=== PATIENT | male | born 1940 | race Caucasian/White ===

== ENCOUNTER 2020-05-02 20:54 | Inpatient (IN) | payer MEDICARE, SELFPAY ==
--- NOTE | ~2020-05-02 | XR_ITS ---
XR chest 2V 05/02/2020 21:40 Indication: Shortness of breath and cough. Pneumonia. COPD. Procedure: AP and lateral views of the chest Comparison: 05/28/2015 Findings: cardiomegaly. Bilateral interstitial infiltrates of the mid and lower lung zones with perib ronchial thickening. No significant pleural effusion or pneumothorax. No acute osseous abnormality. Impression: 1: Bilateral interstitial infiltrates of the mid and lower lung zones, most likely edema. Pneumonia l ess favored. 2: Cardiomegaly. Reviewed, dictated and finalized at location A. D ENGINEER Impression: 1: Bilateral interstitial infiltrates of the mid and lower lung zones, most lik josue edema. Pneumonia less favored. 2: Cardiomegaly.
--- NOTE | 2020-05-02 20:56 | ECG_ITS ---
Measurements Intervals [place] Rate: 80 P: 42 CO: 178 QRS: -52 QRSD: 193 T: 137 QT: 448 QTc: 517 Interpretive Statements SINUS RHYTHM LEFT AXIS DEVIATION LEFT BUNDLE BRANCH BLOCK ABNORMAL ECG Electronically Signed On 05-03-2020 7:04:47 COLLETER by John Zurita D.O.
[2020-05-02 21:07] VITALS: BP 137/82; PULSE 84; RESP 24; TEMP 35.8; O2SAT 95
[2020-05-02 21:38] LABS: Basophils Absolute Auto 0.1 K/mm3 (0.0-0.1); Basophils Percent Auto 0.3 % (0.2-1.2); Eosinophils Absolute Auto 0.1 K/mm3 (0-0.3); Eosinophils Percent Auto 0.5 % (0-4.4); Hematocrit 42.9 % (42.0-52.0); Hemoglobin 14.4 g/dL (14.0-18.0); Immature Granulocyte Absolute 0.07 K/mm3 (0.00-0.031); Immature Granulocyte Percent A 0.5 % (0-0.5); Lymphocytes Absolute Auto 1.02 K/mm3 (0.9-3.2); Lymphocytes Percent Auto 6.7 % (18.3-44.2); Mean Corpuscular HGB Conc 33.6 g/dl (32-36); Mean Corpuscular Hemoglobin 30.9 pg (26-34); Mean Corpuscular Volume 92.1 fl (80-100); Monocytes Absolute Auto 1.2 K/mm3 (0.1-0.6); Monocytes Percent Auto 7.5 % (2.6-8.5); Neutrophils Absolute Auto 12.9 K/mm3 (1.3-6.7); Neutrophils Percent Auto 84.5 % (45.5-73.1); Platelet Count Result 277 k/mm3 (150-375); Red Blood Count 4.66 M/mm3 (4.6-6.20); Red Cell Distribution Width 13.5 % (11.5-14.5); White Blood Count 15.3 K/mm3 (4.5-10.0)
[2020-05-02 21:49] LABS: Anion Gap 6 mmol/L (8-16); Blood Urea Nitrogen 11 mg/dL (9-20); Calcium 8.8 mg/dL (8.4-10.2); Carbon Dioxide 27 mmol/L (22-30); Chloride 101 mmol/L (98-107); Estimated CRCL calculation 69 ml/min; Estimated Glomerular Filt Rate > 60; Glucose 152 mg/dL (75-110); Sodium 134 mmol/L (137-145)
[2020-05-02 21:50] LABS: Potassium 3.8 mmol/L (3.4-5.0)
--- NOTE | 2020-05-02 21:53 | ED.GENADULT ---
HPI - General Adult General Chief complaint: Shortness of Breath/Dyspnea Stated complaint: sob since yesterday Time Seen by Provider: 05/02/20 21:21 History of Present Illness HPI narrative: Patient is a 79-year-old gentleman who presents the emergency department with chief complaint of shortness of breath. Patient reports that he was out golfing and noticed that he was getting more winded as he was bruising the golf course. Patient states that he smokes cigarettes and has noticed that he has been wheezing more and coughing more. The patient reports he has had a productive cough of sputum states that he does have some occasional wheezing. He reports that he has not been officially diagnosed with COPD although it is noted in the patient's chart. The patient denies peripheral edema does report that he has history of heart disease. Related Data Home Medications Medication Instructions Recorded Confirmed aspirin 325 mg tablet,delayed 325 mg PO DAILY 03/07/19 03/19/20 release vardenafil 20 mg tablet 20 mg PO DAILY 03/07/19 03/19/20 Allergies Allergy/AdvReac Type Severity Reaction Status Date / Time Sulfa (Sulfonamide Allergy Unknown Rash Verified 05/02/20 21:06 Antibiotics) Review of Systems Review of Systems: Narrative: A 10 system review of systems was completed on the patient and is negative except for what is stated in the HPI. Nursing and ancillary documentation was reviewed. [facility] Surgical History Surgical History History of right-sided carotid endarterectomy Social History Social History Smoking packs per day: 3 Smoking cigarettes per day: 60.0 Years smoked: 30 Smoking pack-years: 90.00 Smoking status: Current every day smoker Tobacco type: cigarettes Second hand tobacco smoke exposure: No Alcohol intake: never Substance use: never Substance use type: does not use Gender identity (if verbalized by the patient): Male Sexual Orientation (if Verbalized by the Patient): Straight or Heterosexual Exam Narrative: Exam Narrative: GENERAL: Well-appearing, well-nourished, and in no acute distress. HEAD: Normocephalic, atraumatic. EYES: PERRLA and EOMI. ENT: Nares clear, no rhinorrhea or epistaxis. Mucous membranes moist. NECK: Supple. CHEST: Scattered rhonchi present bilaterally with occasional wheeze no respiratory distress. HEART: Regular rate and rhythm. No murmur heard. Normal peripheral pulses. ABDOMEN: Soft, nontender, nondistended, normal active bowel sounds. EXTREMITIES: Normal range of motion. No edema. SKIN: Warm, dry, no rash. NEURO: No focal deficits. Alert and oriented x3. PSYCH: Normal mood and affect. Course Vital Signs Vital signs: Vital Signs Temperature 35.8 C L 05/02/20 21:07 Pulse Rate 84 05/02/20 21:07 Respiratory Rate 24 H 05/02/20 21:07 Blood Pressure 137/82 05/02/20 21:07 Pulse Oximetry 95 05/02/20 21:07 Temperature 35.8 C L 05/02/20 21:07 Pulse Rate 79 05/02/20 23:00 Respiratory Rate 16 05/02/20 23:00 Blood Pressure 130/79 05/02/20 23:00 Pulse Oximetry 92 05/02/20 23:00 Medical Decision Making Vital Signs Vital Signs: Vital Signs Temperature 35.8 C L 05/02/20 21:07 Pulse Rate 84 05/02/20 21:07 Respiratory Rate 24 H 05/02/20 21:07 Blood Pressure 137/82 05/02/20 21:07 Pulse Oximetry 95 05/02/20 21:07 Temperature 35.8 C L 05/02/20 21:07 Pulse Rate 79 05/02/20 23:00 Respiratory Rate 16 05/02/20 23:00 Blood Pressure 130/79 05/02/20 23:00 Pulse Oximetry 92 05/02/20 23:00 Lab Data Result diagrams: 05/02/20 21:27 05/02/20 21:27 Labs: Lab Results 05/02/20 05/02/20 05/02/20 Range/Units 21:27 21:27 21:27 WBC 15.3 H (4.5-10.0) K/mm3 RBC 4.66 (4.6-6.20) M/mm3 Hgb 14.4 (14.0-18.0) g/dL Hct 42.9 (42.0
[2020-05-02 22:12] VITALS: BP 117/67; PULSE 77; RESP 17; O2SAT 93
[2020-05-02] MEDS: methylPREDNISolone SOD SUCC 125 MG VIAL IV PUSH (22:12)
[2020-05-02 22:30] LABS: Alanine Aminotransferase 18 U/L (4-50); Albumin Level 3.9 g/dL (3.5-5.1); Alkaline Phosphatase 56 U/L (38-126); Aspartate Amino Transferase 35 U/L (17-59); Bilirubin,Total 0.9 mg/dL (0.2-1.3)
[2020-05-02 22:49] LABS: NT Pro B Type Natriuretic Pept 3250 PG/ML (5-100); Troponin I 0.741 ng/mL (0.000-0.034)
[2020-05-02 23:00] VITALS: BP 130/79; PULSE 79; RESP 16; O2SAT 92
[2020-05-02] MEDS: ASPIRIN 81 MG CHEWABLE TABLET 324 MG PO (23:13)
--- NOTE | 2020-05-02 23:55 | PM.IMHP ---
H&P: HPI History of Present Illness Date/Time: 05/02/20 23:55 Chief Complaint: shortness of breath Narrative: This is a 79 year old male who is known to chronically smoke 3 ppd of cigarettes and denies any known chronic pulmonary disease presented to the hospital [facility] with a complaint of worsening shortness of breath with minimal exertion over the past few days. His symptoms began after he was out golfing and noticed that he was very winded while playing. He is known to have a chronic poorly productive cough with wheezing. Tonight he denies any recent chest pain, fevers, chills, sore throat, nausea, vomiting, abdominal pain, dysuria hematuria, diarrhea, lower extremity swelling, syncope, or palpitations. He denies any known sick contacts. The patient was evaluated in the ER [facility] and found to incidentally have an elevated troponin of 0.741 and EKG showed a LBBB w/ ST segment depression in precordial leads V5 and V6. The patient reports having had a heart attack years ago but denies having any stents. Cardiology has been consulted by ER provider. We have been asked to admit the patient to the hospital for further care. Review of Systems Review of Systems: All systems reviewed & are unremarkable except as noted in HPI and below PMFSH Past Medical History Medical History CAD (coronary artery disease) COPD (chronic obstructive pulmonary disease) Essential (primary) hypertension Gout, unspecified Surgical History Surgical History History of right-sided carotid endarterectomy Family History Family History Father Lung cancer Social History Social History Smoking packs per day: 3 Smoking cigarettes per day: 60.0 Years smoked: 21 Smoking pack-years: 63.00 Smoking status: Current every day smoker Tobacco type: cigarettes Second hand tobacco smoke exposure: No Alcohol intake: former Substance use: former Substance use type: does not use Gender identity (if verbalized by the patient): Male Sexual Orientation (if Verbalized by the Patient): Straight or Heterosexual Spiritual care concerns: No Meds Home Medications and Allergies Home Medications Medication Instructions Recorded Confirmed Type aspirin 325 mg tablet,delayed 325 mg PO DAILY 03/07/19 05/03/20 History release vardenafil 20 mg tablet 20 mg PO DAILY 03/07/19 05/03/20 History chlorthalidone 25 mg tablet 25 mg PO DAILY #30 tablet 06/09/19 05/03/20 Rx allopurinol 300 mg tablet 300 mg PO DAILY #90 tablet 11/06/19 05/03/20 Rx hydrocodone 7.5 mg-acetaminophen 1 tablet PO Q8H PRN #45 tablet 02/29/20 05/03/20 Rx 325 mg tablet metformin 500 mg tablet,extended 500 mg PO QPM #90 tablet 03/18/20 05/03/20 Rx release 24 hr fosinopril 40 mg PO BID 05/03/20 05/03/20 History nebivolol [Bystolic] 10 mg PO DAILY 05/03/20 05/03/20 History rosuvastatin 20 mg PO DAILY 05/03/20 05/03/20 History valacyclovir 500 mg PO DAILY 05/03/20 05/03/20 History Allergies Allergy/AdvReac Type Severity Reaction Status Date / Time Sulfa (Sulfonamide Allergy Unknown Rash Verified 05/02/20 21:06 Antibiotics) Vital Signs Vital Signs - 24 hr 05/02/20 21:07 05/02/20 22:12 05/02/20 23:00 Temperature 35.8 C L Pulse Rate 84 77 79 Respiratory Rate 24 H 17 16 Blood Pressure 137/82 117/67 130/79 Pulse Oximetry 95 93 92 Exam Const: General: cooperative, alert, awake and ill appearing Nutritional Appearance: overweight Orientation/consciousness: patient oriented x3 HENMT: Head: normal to inspection General nose exam: Normal external nose present Face and sinus: normal facial exam Mouth: Yes Normal oral and palatal mucosa present and Yes oropharynx normal Eyes: Pupils: Equal, round and reactive pupils present EOM: EOMs in
[2020-05-03] VITALS (37 sets, daily range): BP systolic 105–141; BP diastolic 60–89; PULSE 75–132; RESP 12–92; TEMP 35.6–36.8; O2SAT 89–98; BMI 28.5
--- NOTE | 2020-05-03 | ECHO_ITS ---
Patient Info Name: Mahendra Fletcher Age: 79 years : 1940 Gender: Male Ht: 71 in Wt: 202 lbs BSA: 2.16 m2 HR: 85 bpm BP: 131 / 75 mmHg Technical Quality: Fair Exam Date: 05/03/2020 10:06 AM Exam Location: [facility] Pulmonary Exam Room: 205 Patient Status: Inpatient Admit Date: 05/03/2020 Staff Ordering Physician: Osman Ruiz MD [employer] Teacher Librarian: Joanna Watts RCS Attending Provider: Fili Costa PA-C Exam Type: CA echo doppler color flow Study Info Indications - NSTEMI Complete two-dimensional, color flow and Doppler transthoracic echocardiogram is performed. Summary 1. Complete two-dimensional, color flow and Doppler transthoracic echocardiogram is performed. 2. Left ventricular systolic function is normal, estimated at 35-40%. 3. There is mildly increased left ventricular wall thickness. 4. There is mild mitral valve regurgitation. 5. There is mild tricuspid valve regurgitation. 6. Moderate pulmonary hypertension, estimated pulmonary arterial systolic pressure is 58 mmHg. Left Ventricle Left ventricular chamber dimension is normal. Left ventricular systolic function is normal, estimated at 35-40%. There is mildly increased left ventricular wall thickness. Left ventricular septal wall motion is normal. The left ventricular diastolic function is normal. Right Ventricle Right ventricular chamber dimension is normal. Right ventricular systolic function is normal. Left Atria Left atrial chamber dimension is normal. Right Atria Right atrial chamber dimension is normal. Aortic Valve The aortic valve is trileaflet. There is no aortic valve sclerosis. There is no aortic valve stenosis. There is no aortic valve regurgitation. Pulmonic Valve The pulmonic valve is normal. There is no pulmonic valve stenosis. There is no pulmonic regurgitation. Mitral Valve The mitral valve has normal leaflets. There is no mitral valve stenosis. There is mild mitral valve regurgitation. Tricuspid Valve The tricuspid valve leaflets are normal. There is no significant tricuspid valve stenosis. There is mild tricuspid valve regurgitation. Moderate pulmonary hypertension, estimated pulmonary arterial systolic pressure is 58 mmHg. Pericardium/Pleural The pericardium appears normal. There is no pericardial effusion. Inferior Vena Cava Dilated inferior vena cava with >50% collapse upon inspiration consistent with elevated right atrial pressure, 10 mmHg. Aorta The aortic root size at the sinus of Valsalva is normal. The prox ascending aorta size is normal. Left Ventricular Outflow Tract Name Value Normal LVOT 2D LVOT Diameter 2.2 cm LVOT Doppler LVOT Peak Gradient 4 mmHg LVOT Mean Gradient 2 mmHg LVOT VTI 19 cm LVOT VTI/AV VTI Ratio 0.9 LVOT Stroke Volume 73 ml LVOT CO 15.9 l/min LVOT CI 7.4 l/min/m2 Pulmonic Valve
[2020-05-03] MEDS: HEPARIN SODIUM 5,000 UNITS/ML VIAL 4000 UNITS IV PUSH ×2 (00:19→08:32)
--- NOTE | 2020-05-03 00:57 | ADMGEN ---
This patient, Mahendra Fletcher, was admitted to IMU Room 205-02. Patient/family oriented to hospital policies and general routines including ID bracelet, bed and alarms, visiting hours, pain management, procedures, bathroom and other care routines, personal items, smoking policy, room service/diet, and visiting hours. Information on how to activate the Rapid Response Team has been discussed. Patient/Family are encouraged to report perceived risks to care and to ask questions if they do not understand what they are told or what they should do.
[2020-05-03 01:20] LABS: Alveolar/Arterial O2 Gradient 141.6 mmHg; Base Excess ABG -0.2 mEq/l (+/-2.0); Device NASAL CANNULA; Fractional Inspired Oxygen 36 %; HCO3 ABG 24.6 mEq/l (22.0-26.0); Modified Allen's Test Pass; Oxygen Content ABG 18.9 %vol (16.0-22.0); Oxygen Saturation ABG 93.5 % (95.0-100.0); PCO2 ABG 40.9 mmHg (35.0-45.0); PO2 ABG 67.6 mmHg (80.0-100.0); PO2 FiO2 Ratio Arterial Blood 1.88 %; Site Drawn RIGHT RADIAL; Total Hemoglobin 14.8 g/dL (12.0-18.0); pH ABG 7.397 (7.350-7.450)
[2020-05-03 01:49] LABS: Basophils Percent Auto 0.2 % (0.2-1.2); Eosinophils Percent Auto 0.2 % (0-4.4); Hematocrit 43.2 % (42.0-52.0); Hemoglobin 14.5 g/dL (14.0-18.0); Immature Granulocyte Absolute 0.05 K/mm3 (0.00-0.031); Immature Granulocyte Percent A 0.4 % (0-0.5); Lymphocytes Absolute Auto 0.35 K/mm3 (0.9-3.2); Lymphocytes Percent Auto 2.5 % (18.3-44.2); Mean Corpuscular HGB Conc 33.6 g/dl (32-36); Mean Corpuscular Hemoglobin 30.8 pg (26-34); Mean Corpuscular Volume 91.7 fl (80-100); Mean Platelet Volume 10.1 fl (7.4-10.4); Monocytes Absolute Auto 0.2 K/mm3 (0.1-0.6); Monocytes Percent Auto 1.4 % (2.6-8.5); Neutrophils Absolute Auto 13.4 K/mm3 (1.3-6.7); Neutrophils Percent Auto 95.3 % (45.5-73.1); Platelet Count Result 250 k/mm3 (150-375); Red Blood Count 4.71 M/mm3 (4.6-6.20); Red Cell Distribution Width 13.3 % (11.5-14.5); White Blood Count 14.1 K/mm3 (4.5-10.0)
[2020-05-03] MEDS: HEPARIN SOD/D5W 100 UNITS/ML 25,000 UNITS/250 ML BAG 10 UNITS IV CONT (01:50)
[2020-05-03 01:59] LABS: INR 1.1; Prothrombin Time 14.7 Seconds (11.1-14.7)
[2020-05-03 02:00] LABS: Partial Thromboplastin Time 51.4 SECONDS (22.3-36.8)
[2020-05-03 02:23] LABS: Troponin I 0.752 ng/mL (0.000-0.034)
--- NOTE | 2020-05-03 04:30 | ECG_ITS ---
Measurements Intervals [place] Rate: 102 P: 66 SC: 165 QRS: -51 QRSD: 206 T: 138 QT: 404 QTc: 528 Interpretive Statements SINUS TACHYCARDIA VENTRICULAR PREMATURE COMPLEXES LEFT AXIS DEVIATION LEFT BUNDLE BRANCH BLOCK BASELINE ARTIFACT- I, II, III, AVR, AVL, AVF, V1-V6 ABNORMAL ECG Electronically Signed On 05-03-2020 8:42:45 [employer] by John Zurita D.O.
[2020-05-03 04:40] LABS: Glucose Point of Care 276 (65-105)
[2020-05-03 04:47] LABS: Basophils Percent Auto 0.1 % (0.2-1.2); Hematocrit 51.1 % (42.0-52.0); Hemoglobin 16.7 g/dL (14.0-18.0); Immature Granulocyte Absolute 0.09 K/mm3 (0.00-0.031); Immature Granulocyte Percent A 0.6 % (0-0.5); Lymphocytes Absolute Auto 0.58 K/mm3 (0.9-3.2); Mean Corpuscular HGB Conc 32.7 g/dl (32-36); Mean Corpuscular Hemoglobin 30.8 pg (26-34); Mean Corpuscular Volume 94.1 fl (80-100); Mean Platelet Volume 10.1 fl (7.4-10.4); Monocytes Absolute Auto 0.2 K/mm3 (0.1-0.6); Monocytes Percent Auto 1.5 % (2.6-8.5); Neutrophils Absolute Auto 13.5 K/mm3 (1.3-6.7); Neutrophils Percent Auto 93.8 % (45.5-73.1); Platelet Count Result 342 k/mm3 (150-375); Red Blood Count 5.43 M/mm3 (4.6-6.20); Red Cell Distribution Width 13.6 % (11.5-14.5); White Blood Count 14.4 K/mm3 (4.5-10.0)
[2020-05-03 05:03] LABS: Alanine Aminotransferase 29 U/L (4-50); Albumin Level 4.2 g/dL (3.5-5.1); Alkaline Phosphatase 64 U/L (38-126); Anion Gap 10 mmol/L (8-16); Aspartate Amino Transferase 53 U/L (17-59); Bilirubin,Total 1.2 mg/dL (0.2-1.3); Blood Urea Nitrogen 14 mg/dL (9-20); Calcium 8.8 mg/dL (8.4-10.2); Carbon Dioxide 28 mmol/L (22-30); Chloride 100 mmol/L (98-107); Estimated CRCL calculation 62 ml/min; Estimated Glomerular Filt Rate > 60; Glucose 252 mg/dL (75-110); Sodium 138 mmol/L (137-145)
[2020-05-03 08:06] LABS: Partial Thromboplastin Time 47.6 SECONDS (22.3-36.8)
--- NOTE | 2020-05-03 08:14 | PM.CNCAR ---
Assessment and Plan Assessment and plan (1) COPD exacerbation: Code(s): J44.1 - Chronic obstructive pulmonary disease with (acute) exacerbation Status: Acute (2) NSTEMI (non-ST elevated myocardial infarction): Code(s): I21.4 - Non-ST elevation (NSTEMI) myocardial infarction Status: Acute Assessment and Plan: Considering cath today He has significantly elevated troponin, with significant risk factors for coronary disease. Will proceed with aspirin and heparin, once he is further stabilized and not having much of orthopnea will proceed with cardiac catheterization. Procedure discussed with the patient, risks, benefits, moderate degenerative measures were explained (3) COPD (chronic obstructive pulmonary disease): Qualifiers: COPD type: unspecified COPD Qualified Code(s): J44.9 - Chronic obstructive pulmonary disease, unspecified Code(s): J44.9 - Chronic obstructive pulmonary disease, unspecified Status: Acute (4) Acute dyspnea: Code(s): R06.00 - Dyspnea, unspecified Status: Acute (5) Mixed hyperlipidemia: Code(s): E78.2 - Mixed hyperlipidemia Status: Chronic (6) Congestive heart failure: Code(s): I50.9 - Heart failure, unspecified Status: Acute Assessment and Plan: likely is due to systolic dysfunction which is likely is due to ischemic cardiomyopathy. Will get echocardiogram to evaluate current status of left ventricular systolic dysfunction, agree with diuresis, follow up input and outputs closely, once he is further stabilized will consider cardiac catheterization History of Present Illness History of Present Illness Consult date/time: 05/03/20 08:14 79 years old gentleman with history of hypertension, history of smoking, was admitted to the hospital because of worsening shortness of breath and diaphoresis. As as seen because of elevated troponin. He has significant diaphoresis earlier, but he feels better now since he has been on heparin and on oxygen, no known history of coronary artery disease, has history of known carotid artery stenosis and peripheral vascular disease. Denies any chest pain per se but has significant shortness of breath [id number] orthopnea which improved since he came in with significant diuresis. No palpitation no dizziness no syncope. Reason For Visit: dyspnea, elevated troponin, COPD Review of Systems Review of Systems: All systems reviewed & are unremarkable except as noted in HPI and below Cardiovascular: Cardiovascular: Reports as per HPI Respiratory: Respiratory: Reports as per HPI, Reports pain with cough, Reports dyspnea and Reports dyspnea on exertion Gastrointestinal: Gastrointestinal: Reports no additional gastrointestinal complaints PMFSH Past Medical History Medical History CAD (coronary artery disease) COPD (chronic obstructive pulmonary disease) Essential (primary) hypertension Gout, unspecified Surgical History Surgical History History of right-sided carotid endarterectomy Family History Family History Father Lung cancer Social History Social History Smoking packs per day: 3 Smoking cigarettes per day: 60.0 Years smoked: 21 Smoking pack-years: 63.00 Smoking status: Current every day smoker Tobacco type: cigarettes Second hand tobacco smoke exposure: No Alcohol intake: former Substance use: former Substance use type: does not use Gender identity (if verbalized by the patient): Male Sexual Orientation (if Verbalized by the Patient): Straight or Heterosexual Spiritual care concerns: No Meds Home Medications and Allergies Home Medications Medication Instructions Recorded Confirmed Type aspirin 325 mg tablet,delayed
[2020-05-03] MEDS: INSULIN ASPART (*BKC) 100 UNITS/ML SUB-Q ×2 (08:32→13:15)
[2020-05-03 08:33] LABS: Glucose Point of Care 237 (65-105)
--- NOTE | 2020-05-03 08:56 | P.PNIM_ITS ---
Progress Note: A&P Assessment and Plan (1) Acute dyspnea: Code(s): R06.00 - Dyspnea, unspecified Status: Acute Assessment and Plan: With Acute respiratory failure with hypoxia and hypoxemia shown on ABG. Possi maite secondary to acute COPD exacerbation w/ dyspnea, wheezing, and poorly productive cough vs undiagnosed CHF with BNP 3250 and CXR findings of cardiomegaly and b/l mid-lower lung zone infiltrates suggesting edema over pneumonia; pneumonia less likely as patient has no increased cough with increased sputum production nor fever. * Dr. Ruiz consulted and appreciate recommendations * Echo has been ordered; plans for possible cardiac cath this afternoon pending patient improvement, as well * Oxygen supplementation to maintain O2 sats >90%. Will have nursing remove bipap and wean O2 as tolerated * Will do solumedrol 60 mg IV Q12h for now * Xopenex nebs. * After discussion with Dr. Ruiz, will do Lasix 40 mg IV once now, then 20 mg Q12 hr thereafter for diuresis * Monitor closely (2) Elevated troponin: Code(s): R77.8 - Other specified abnormalities of plasma proteins Status: Acute Assessment and Plan: With EKG possibly showing ST depression. R/o acute ACS/NSTEMI vs. troponin leak. Dr. Ruiz has been consulted by ER provider; appreciate input. Patient to have Echo today as well as cardiac cath pending clinical improvement; discussed with Dr. Ruiz * Continue Cardiology recommendations. * Continue heparin drip for now * Monitor closely (3) Leukocytosis: Code(s): D72.829 - Elevated white blood cell count, unspecified Status: Acute Assessment and Plan: WBC 15.3k on arrival with unclear etiology as patient does not have clear source for infection and does not appear septic/acutely infected/ill and he denies any s/sx of acute infection. Lactic acid WNL. Patient afebrile with stable VS. P atient now receiving IV solumedrol which could elevate white count. * Obtain UA to rule out UTI * Monitor closely (4) Essential (primary) hypertension: Code(s): I10 - Essential (primary) hypertension Status: Chronic Assessment and Plan: BP 140s sys most recently * Monitor blood pressure. * Continue lisinopril, bystolic * hold chlorthalidone given IV diuresis (5) Gout, unspecified: Qualifiers: Gout site: unspecified site Gout etiology: unspecified cause Chronicity: chronic Presence of tophus: without tophus Qualified Code(s): M1A.9XX0 - Chronic gout, unspecified, without tophus (tophi) Code(s): M10.9 - Gout, unspecified Status: Chronic Assessment and Plan: * Continue allopurinol. (6) Type 2 diabetes mellitus with peripheral angiopathy: Code(s): E11.51 - Type 2 diabetes mellitus with diabetic peripheral angiopathy without gangrene Status: Chronic Assessment and Plan: BGL 200s * Accuchecks, SSI Coverage, hypoglycemic protocol, diabetic diet once off npo status * Hold metformin given possible cath today (7) Mixed hyperlipidemia: Code(s): E78.2 - Mixed hyperlipidemia Status: Chronic Assessment and Plan: * Continue statin Subjective Date/time seen: 05/03/20 08:56 Interval history: Patient is a 79 year old male who is known to chronically smoke 3 ppd of cigaret
--- NOTE | 2020-05-03 08:56 | PM.IMPN ---
Progress Note: A&P Assessment and Plan (1) Acute dyspnea: Code(s): R06.00 - Dyspnea, unspecified Status: Acute Assessment and Plan: With Acute respiratory failure with hypoxia and hypoxemia shown on ABG. Possibly secondary to acute COPD exacerbation w/ dyspnea, wheezing, and poorly productive cough vs undiagnosed CHF with BNP 3250 and CXR findings of cardiomegaly and b/l mid-lower lung zone infiltrates suggesting edema over pneumonia; pneumonia less likely as patient has no increased cough with increased sputum production nor fever. Dr. Ruiz consulted and appreciate recommendations Echo has been ordered; plans for possible cardiac cath this afternoon pending patient improvement, as well Oxygen supplementation to maintain O2 sats >90%. Will have nursing remove bipap and wean O2 as tolerated Will do solumedrol 60 mg IV Q12h for now Xopenex nebs. After discussion with Dr. Ruiz, will do Lasix 40 mg IV once now, then 20 mg Q12 hr thereafter for diuresis Monitor closely (2) Elevated troponin: Code(s): R77.8 - Other specified abnormalities of plasma proteins Status: Acute Assessment and Plan: With EKG possibly showing ST depression. R/o acute ACS/NSTEMI vs. troponin leak. Dr. Ruiz has been consulted by ER provider; appreciate input. Patient to have Echo today as well as cardiac cath pending clinical improvement; discussed with Dr. Ruiz Continue Cardiology recommendations. Continue heparin drip for now Monitor closely (3) Leukocytosis: Code(s): D72.829 - Elevated white blood cell count, unspecified Status: Acute Assessment and Plan: WBC 15.3k on arrival with unclear etiology as patient does not have clear source for infection and does not appear septic/acutely infected/ill and he denies any s/sx of acute infection. Lactic acid WNL. Patient afebrile with stable VS. Patient now receiving IV solumedrol which could elevate white count. Obtain UA to rule out UTI Monitor closely (4) Essential (primary) hypertension: Code(s): I10 - Essential (primary) hypertension Status: Chronic Assessment and Plan: BP 140s sys most recently Monitor blood pressure. Continue lisinopril, bystolic hold chlorthalidone given IV diuresis (5) Gout, unspecified: Qualifiers: Gout site: unspecified site Gout etiology: unspecified cause Chronicity: chronic Presence of tophus: without tophus Qualified Code(s): M1A.9XX0 - Chronic gout, unspecified, without tophus (tophi) Code(s): M10.9 - Gout, unspecified Status: Chronic Assessment and Plan: Continue allopurinol. (6) Type 2 diabetes mellitus with peripheral angiopathy: Code(s): E11.51 - Type 2 diabetes mellitus with diabetic peripheral angiopathy without gangrene Status: Chronic Assessment and Plan: BGL 200s Accuchecks, SSI Coverage, hypoglycemic protocol, diabetic diet once off npo status Hold metformin given possible cath today (7) Mixed hyperlipidemia: Code(s): E78.2 - Mixed hyperlipidemia Status: Chronic Assessment and Plan: Continue statin Subjective Date/time seen: 05/03/20 08:56 Interval history: Patient is a 79 year old male who is known to chronically smoke 3 ppd of cigarettes and has been told he has COPD, CAD, carotid artery stenosis with 100% occlusion of left carotid and s/p endarterectomy of the right per patient, and HTN with no known history of CHF who is seen in follow up for acute dyspnea likely secondary to possible undiagnosed CHF vs COPD or combination thereof, as well as, elevated troponin level. Patient states he was out golfing for three
[2020-05-03] MEDS: ASPIRIN 325 MG ENTERIC TABLET PO (08:57)
[2020-05-03] MEDS: methylPREDNISolone SOD SUCC 125 MG VIAL 60 MG IV PUSH ×2 (08:58→20:48)
[2020-05-03] MEDS: FUROSEMIDE INJ 40 MG/4 ML VIAL IV PUSH (08:58)
[2020-05-03] MEDS: valACYclovir HCL 500 MG TABLET PO (08:58)
[2020-05-03] MEDS: ROSUVASTATIN 10 MG TABLET 20 MG PO (08:58)
[2020-05-03] MEDS: NEBIVOLOL HCL 5 MG TABLET 10 MG PO (08:58)
[2020-05-03] MEDS: CHLORTHALIDONE 25 MG TABLET PO (08:58)
[2020-05-03] MEDS: lisinopriL 20 MG TABLET 40 MG PO ×2 (08:58→20:47)
[2020-05-03] MEDS: allopurinoL 300 MG TABLET PO (08:58)
[2020-05-03 12:33] LABS: Glucose Point of Care 208 (65-105)
[2020-05-03 13:27] LABS: Add Urine Microscopic? NO; Appearance Urine Clear (Clear); Bilirubin Urine Negative (Negative); Blood Urine Negative (Negative); Color Urine Straw (Yellow); Glucose Urine UA Negative (Negative); Ketones Urine Negative (Negative); Leukocyte Esterase Ur Negative LEU/UL (Negative); Nitrate Urine Negative (Negative); Protein Urine Negative (Negative); Specific Grav Ur 1.008 (1.001-1.035); Urobilinogen Urine Negative mg/dL (<2.0)
--- NOTE | 2020-05-03 14:39 | WPDMODSED ---
Moderate Sedation Note-Pt Data Patient Data Allergies Allergy/AdvReac Type Severity Reaction Status Date / Time Sulfa (Sulfonamide Allergy Unknown Rash Verified 05/02/20 21:06 Antibiotics) Home Medications Medication Instructions Recorded Confirmed Type aspirin 325 mg tablet,delayed 325 mg PO DAILY 03/07/19 05/03/20 History release vardenafil 20 mg tablet 20 mg PO DAILY 03/07/19 05/03/20 History chlorthalidone 25 mg tablet 25 mg PO DAILY #30 tablet 06/09/19 05/03/20 Rx allopurinol 300 mg tablet 300 mg PO DAILY #90 tablet 11/06/19 05/03/20 Rx hydrocodone 7.5 mg-acetaminophen 1 tablet PO Q8H PRN #45 tablet 02/29/20 05/03/20 Rx 325 mg tablet metformin 500 mg tablet,extended 500 mg PO QPM #90 tablet 03/18/20 05/03/20 Rx release 24 hr fosinopril 40 mg PO BID 05/03/20 05/03/20 History nebivolol [Bystolic] 10 mg PO DAILY 05/03/20 05/03/20 History rosuvastatin 20 mg PO DAILY 05/03/20 05/03/20 History valacyclovir 500 mg PO DAILY 05/03/20 05/03/20 History Current Medications: Active Medications Allopurinol (Allopurinol 300 Mg Tablet) 300 mg PO DAILY [facility] Last Admin: 05/03/20 08:58 Dose: 300 mg Documented by: Aspirin (Aspirin 325 Mg Enteric Tablet) 325 mg PO DAILY [facility] Last Admin: 05/03/20 08:57 Dose: 325 mg Documented by: Chlorthalidone (Chlorthalidone 25 Mg Tablet) 25 mg PO DAILY [facility] Last Admin: 05/03/20 08:58 Dose: 25 mg Documented by: Dextrose (Dextrose 50% 25 Gm/50 Ml Syringe) 12.5 gm IV PUSH PRN PRN; Protocol PRN Reason: Hypoglycemia Furosemide (Furosemide Inj 40 Mg/4 Ml Vial) 20 mg IV PUSH Q12HR [facility] Glucagon (Glucagon For Inj 1 Mg Vial) 1 mg IM PRN PRN; Protocol PRN Reason: Hypoglycemia Glucose (Glucose Oral Gel 15 Gm Of Glucse In 37.5 Gm Tube) 15 gm PO PRN PRN; Protocol PRN Reason: Hypoglycemia Heparin Sodium (Porcine) (Heparin Sodium 5,000 Units/Ml Vial) 4,000 units IV PUSH PRN PRN PRN Reason: aPTT less than 55 seconds Last Admin: 05/03/20 08:32 Dose: 4,000 units Documented by: Heparin Sodium (Porcine) (Heparin Sodium 5,000 Units/Ml Vial) 3,500 units IV PUSH PRN PRN PRN Reason: aPTT 55 - 70 seconds Heparin Sodium/Dextrose (Heparin Sodium/D5w 100 Units/Ml) 25,000 units in 250 mls @ 14 mls/hr IV CONT .[id number] [facility]; Protocol Last Titration: 05/03/20 08:34 Dose: 1,400 units/hr, 14 mls/hr Documented by: Dextrose (Dextrose 5% 1,000 Ml) 1,000 mls @ 100 mls/hr IVPB PRN PRN; Protocol PRN Reason: Hypoglycemia Insulin Aspart (Insulin Aspart (*Bkc) 100 Units/Ml) 2 - 5 units SUB-Q TIDWM [facility]; Protocol Last Admin: 05/03/20 13:15 Dose: 2 units Documented by: Levalbuterol HCl (Levalbuterol Neb 1.25 Mg/0.5 Ml) 1.25 mg INHALATION Q6HRT [facility] Last Admin: 05/03/20 13:10 Dose: 1.25 mg Documented by: Lisinopril (Lisinopril 20 Mg Tablet) 40 mg PO Q12HR [facility] Last Admin: 05/03/20 08:58 Dose: 40 mg Documented by: Methylprednisolone Sodium Succinate (Methylprednisolone Sod Succ 125 Mg Vial) 60 mg IV PUSH Q12H [facility] Last Admin: 05/03/20 08:58 Dose: 60 mg Documented by: Nebivolol (Nebivolol Hcl 5 Mg Tablet) 10 mg PO DAILY [facility] Last Admin: 05/03/20 08:58 Dose: 10 mg Documented by: Rosuvastatin Calcium (Rosuvastatin 10 Mg Tablet) 20 mg PO DAILY [facility] Last Admin: 05/03/20 08:58 Dose: 20 mg Documented by: Valacyclovir HCl (Valacyclovir Hcl 500 Mg Tablet) 500 mg PO DAILY [facility] Last Admin: 05/03/20 08:58 Dose: 500 mg Documented by: Sedation/Anesthesia: No previous sedation/anesthesia problems (including family history). [facility] Past Medical History Medical History CAD (coronary artery disease) COPD (chronic obstructive pulmonary disease) Essential (primary) hypertension Gout, unspecified Surgical History Surgical History History of right-sided carotid endarterectomy Family History Family History Father Lung cancer
--- NOTE | 2020-05-03 15:19 | P.PCNCC_ITS ---
Cardiac Cath Procedure Note Date of procedure:: 05/03/20 Performing physician:: Osman Ruiz MD Procedure: 1. Left heart catheterization, selective coronary angiogram. 2. Conscious sedation. Parts Room Clerk: Dr. Osman Ruiz Complications: None. Sedation: Conscious sedation, local anesthesia, using 1 mg of Versed said, 25 mcg of fentanyl, and using 1% lidocaine for local anesthesia. Starting time is 2:45 p.m. ending time is 3:15 p.m. History: 79-year-old gentleman, history of hypertension peripheral vascular disease carotid artery disease came to the hospital because of congestive heart failure, noted to have diaphoresis and noted to have elevated troponin. After further stabilization was brought to the clinical laboratory service teacher for elective cardiac catheterization for definitive diagnosis of coronary disease Technique: After informed consent was obtained from patient, was brought to the clinical laboratory service teacher, put in the clinical laboratory service teacher table, prepped and draped in usual sterile fashion. Five Cypriot sheath was inserted into the right common femoral artery, through the sheath 5 Cypriot JL4 catheter inserted, advanced to the left coronary artery, left coronary artery angiogram was obtained. The catheter was exchanged over guidewire into a 5 Cypriot JR4 catheter, advanced to the right coronary artery, right coronary artery angiogram was obtained. The catheter then was pulled, the sheath was pulled applying manual pressure for arterial hemostasis. Patient tolerated the procedure no complication, taken from the clinical laboratory service teacher to his room in stable condition stable vital signs. Hemodynamics: aortic pressure 114/60 . LV pressure 104/10 with LVEDP of 24 mmHg Angiographic findings: Left main: large caliber vessel but seems to be very heavily calcified with 90% stenosis involving most of the body of the left main Lad medium size artery showed proximal calcified 90%, and mid 75%, 1st diagonal branch with proximal 75% disease Left circumflex artery, mid circ 75% disease RCA: Dominant vessel, showed mid RCA significant irregularity with a 40-50% disease. LV: not done due to elevated LVEDP Summary: left main critical coronary artery disease with known moderate left ventricular systolic dysfunction Recommendation: will need to be transferred for bypass surgery will make arrangement for transfer to [facility] for cardiac surgery with coronary bypass surgery. Meanwhile continue with medical treatment and further stabilization until he gets transferred
--- NOTE | 2020-05-03 15:19 | PM.TDS ---
Transfer Discharge Sum: Prov Provider Date of admission: 05/03/20 09:44 Primary care physician: Kvng Mcclendon MD Admitting clinician: Bliane Madera MD Consults: Date/time of transfer: 05/03/20 at 2302 Accepting physician: Dr. Ruiz (Cardiology) 05/02/20 23:39 Consult to Physician Routine Comment: Consulting Provider: Osman Ruiz Reason for consultation: elevated troponin Has provider been notified: Yes DS: Admitting Diagnosis Admitting Diagnosis Admitting Diagnosis: Acute dyspnea, elevated troponin, possible NSTEMI DS: Discharge Diagnosis Discharge Diagnosis (1) NSTEMI (non-ST elevated myocardial infarction): Code(s): I21.4 - Non-ST elevation (NSTEMI) myocardial infarction Status: Acute Assessment and Plan: Discussed with Dr. Ruiz and cardiac cath this afternoon, 05/03, shows left main artery disease and requires transfer to [facility] for possible CABG; he will be placed on heparin drip. Transfer to [facility] per Dr. Ruiz rec (2) Elevated troponin: Code(s): R77.8 - Other specified abnormalities of plasma proteins Status: Acute Assessment and Plan: With EKG possibly showing ST depression. Cardiac cath as above; likely acute ACS/NSTEMI requiring possible CABG. Echo today shows EF 35-50%. (3) Acute dyspnea: Code(s): R06.00 - Dyspnea, unspecified Status: Acute Assessment and Plan: With acute respiratory failure with hypoxia and hypoxemia shown on ABG. Possibly secondary to acute COPD exacerbation w/ dyspnea, wheezing, and poorly productive cough vs undiagnosed CHF with BNP 3250 and CXR findings of cardiomegaly and b/l mid-lower lung zone infiltrates suggesting edema over pneumonia; pneumonia less likely as patient has no increased cough with increased sputum production nor fever. Dr. Ruiz consulted and appreciate recommendations Oxygen supplementation to maintain O2 sats >90%. Will do solumedrol 60 mg IV Q12h for now Xopenex nebs. After discussion with Dr. Ruiz, will do Lasix 20 mg Q12 hr for diuresis (4) Leukocytosis: Code(s): D72.829 - Elevated white blood cell count, unspecified Status: Acute Assessment and Plan: WBC 15.3k on arrival with unclear etiology as patient does not have clear source for infection and does not appear septic/acutely infected/ill and he denies any s/sx of acute infection. Lactic acid WNL. Patient afebrile with stable VS. Patient now receiving IV solumedrol which could elevate white count. UA unremarkable Monitor closely (5) Essential (primary) hypertension: Code(s): I10 - Essential (primary) hypertension Status: Chronic Assessment and Plan: BP 140s sys most recently Monitor blood pressure. Continue lisinopril, bystolic hold chlorthalidone given IV diuresis (6) Gout, unspecified: Qualifiers: Chronicity: chronic Gout etiology: unspecified cause Gout site: unspecified site Presence of tophus: without tophus Qualified Code(s): M1A.9XX0 - Chronic gout, unspecified, without tophus (tophi) Code(s): M10.9 - Gout, unspecified Status: Chronic Assessment and Plan: Continue allopurinol. (7) Type 2 diabetes mellitus with peripheral angiopathy: Code(s): E11.51 - Type 2 diabetes mellitus with diabetic peripheral angiopathy without gangrene Status: Chronic Assessment and Plan: BGL 200s Accuchecks, SSI Coverage, hypoglycemic protocol, diabetic diet once off npo status Hold metformin given possible cath today (8) Mixed hyperlipidemia: Code(s): E78.2 - Mixed hyperlipidemia Status: Chronic Assessment an
[2020-05-03 17:39] LABS: Partial Thromboplastin Time 29.3 SECONDS (22.3-36.8)
[2020-05-03 18:22] LABS: Glucose Point of Care 183 (65-105)
[2020-05-03] MEDS: HEPARIN SOD/D5W 100 UNITS/ML 25,000 UNITS/250 ML BAG 14 UNITS IV CONT (19:12)
[2020-05-03] MEDS: FUROSEMIDE INJ 40 MG/4 ML VIAL 20 MG IV PUSH (20:48)
[2020-05-03 20:59] LABS: Glucose Point of Care 166 (65-105)
--- NOTE | 2020-05-03 23:00 | PC.NURSE ---
Pt's daughter, Frances, notified of transfer to [facility]. Pt left IMU via EMS stretcher at [id number].
[2020-05-04 01:17] LABS: SARS-CoV-2 RNA PCR Negative
== END 2020-05-03 23:03 | disposition short-term general hospital (02) | DRG 280 ==
LOC: ANHED 23:41 → ANHIMU 23:54
PROVIDERS: Physician Assistant; Specialist; Admitting Provider Family Medicine; Emergency Provider Emergency Medicine; PCP Family Medicine; Visit Provider Family Medicine
PROC: 4A023N7 Measurement of Cardiac Sampling and Pressure, Left Heart, Percutaneous Approach (ICD-10-PCS; CPT 93452; principal; 2020-05-03 14:30)
DX: I21.4 Non-ST elevation (NSTEMI) myocardial infarction (principal); J96.01 Acute respiratory failure with hypoxia; J44.1 Chronic obstructive pulmonary disease with (acute) exacerbation; I25.10 Atherosclerotic heart disease of native coronary artery without angina pectoris; I27.20 Pulmonary hypertension, unspecified; I11.0 Hypertensive heart disease with heart failure; I50.9 Heart failure, unspecified; E11.51 Type 2 diabetes mellitus with diabetic peripheral angiopathy without gangrene; Z20.822 Contact with and (suspected) exposure to COVID-19; R77.8 Other specified abnormalities of plasma proteins; F17.210 Nicotine dependence, cigarettes, uncomplicated; E78.2 Mixed hyperlipidemia; D72.829 Elevated white blood cell count, unspecified; I65.22 Occlusion and stenosis of left carotid artery; M1A.9XX0 Chronic gout, unspecified, without tophus (tophi); Z28.21 Immunization not carried out because of patient refusal; Z79.82 Long term (current) use of aspirin; Z79.84 Long term (current) use of oral hypoglycemic drugs; Z79.899 Other long term (current) drug therapy; Z88.2 Allergy status to sulfonamides
CPT/HCPCS: 36415; 36600; 71046; 80048; 80053; 80076; 81003; 82805; 82948; 83605; 83880; 84484; 85025; 85610; 85730; 93005; 93306; 93458; 94002; 94640; 96365; 96366; 96375; 96376; 99285; A9270; C1887; C1894; C9803; G0378; J0461; J1644; J1815; J1940; J2250; J2930; J3010; J7040; U0003; U0005

== ENCOUNTER 2020-07-18 01:42 | Emergency (ER) | payer MEDICARE, SELFPAY ==
[2020-07-18] VITALS (23 sets, daily range): BP systolic 131–167; BP diastolic 76–99; PULSE 68–90; RESP 13–29; TEMP 36.5; O2SAT 89–100
--- NOTE | ~2020-07-18 | XR_ITS ---
EXAMINATION: XR chest 2V DATE: 07/18/2020 02:30 INDICATION: Shortness of breath TECHNIQUE: PA and lateral views of the chest are obtained. COMPARISON: 05/02/2020 FINDINGS: Cardiomegaly is noted. There are small pleural effusions. There are patchy opacities of the mid and lower lung zones. No pneumothorax is identified. There is moderate thoracic spondylosis. Med nurys sternotomy wires and mediastinal surgical clips are seen, likely from prior coronary artery bypas s grafting. IMPRESSION: 1. Cardiomegaly. 2. Patchy opacities of the mid and lower lung zones consistent with atelectasis and/or pneumonia and/ or pulmonary edema. 3. Small pleural effusions. Reviewed, dictated and finalized at location A. IMPRESSION: 1. Cardiomegaly. 2. Patchy opacities of the mid and lower lung zones consistent with atelectasis and/or pneumonia and/or pulmonary edema. 3. Small pleural effusions.
--- NOTE | ~2020-07-18 | CT_ITS ---
EXAMINATION: CTA chest PE protocol DATE: 07/18/2020 03:39 INDICATION: Shortness of breath, elevated d-dimer TECHNIQUE: Computed tomography angiography (CTA) of the chest was performed with 100 mL Omnipaque-350 intravenous contrast timed to evaluate the pulmonary arteries. Coronal maximum intensity projection 3D-reconstructions were created by the technologist. The dose-length product (DLP) was 504.09 mGy-cm. Automated exposure control and iterative reconstruction technique were employed. COMPARISON: None. FINDINGS: The pulmonary arteries are well-opacified. No pulmonary embolism is identified. There are m oderate size right and small left pleural effusions. Cardiomegaly is noted. There are some areas of s mooth interlobular septal thickening. Dependent groundglass opacities are present, particularly in th e lung bases. There is some bronchial wall thickening of the lower lobes. No pneumothorax is identifi ed. Mild right paratracheal lymphadenopathy is noted, likely reactive. The gallbladder is surgically absent. There is severe thoracic spondylosis. IMPRESSION: 1. No pulmonary embolism. 2. Cardiomegaly with mild pulmonary edema. 3. Moderate-sized right and small left pleural effusions. 4. Mild bronchial wall thickening of the lower lobes, likely infectious. Reviewed, dictated and finalized at location A.
--- NOTE | 2020-07-18 01:48 | ECG_ITS ---
Measurements Intervals [place] Rate: 77 P: 77 ID: [id number] QRS: -50 QRSD: 205 T: 131 QT: 480 QTc: 544 Interpretive Statements SINUS RHYTHM LEFT AXIS DEVIATION BORDERLINE AV CONDUCTION DELAY LEFT BUNDLE BRANCH BLOCK BASELINE ARTIFACT- I, II, AVR ABNORMAL ECG Electronically Signed On 07-18-2020 5:50:00 CDT by John Zurita D.O.
--- NOTE | 2020-07-18 02:04 | ED.SOB ---
HPI - SOB/Dyspnea General Chief Complaint: Shortness of Breath/Dyspnea Stated Complaint: shortness of breath Time Seen by Provider: 07/18/20 01:48 Source: patient Mode of arrival: ambulatory Limitations: no limitations History of Present Illness HPI Narrative: Patient is a 79-year-old male complaining of shortness of breath that started last night. Patient states that his shortness of breath is worse when he lays down. Patient states that he has a history of CHF but has not taken his water pill in a long time, furosemide, was told by his doctor to only take it as needed. Patient states that he recently received a second dose of Covid yesterday. Patient denies any chest pain, abdominal pain, nausea, vomiting, diaphoresis, fever or chills. Related Data Home Medications Medication Instructions Recorded Confirmed aspirin 325 mg tablet,delayed 325 mg PO DAILY 03/07/19 07/16/20 release rosuvastatin 20 mg PO DAILY 05/03/20 07/16/20 valacyclovir 500 mg PO DAILY 05/03/20 07/16/20 amiodarone 200 mg tablet 200 mg PO DAILY 05/22/20 07/16/20 furosemide 20 mg tablet 20 mg PO QAM PRN 05/22/20 07/16/20 metoprolol succinate 50 mg 75 mg PO DAILY tablet 05/22/20 07/16/20 tablet,extended release 24 hr dapagliflozin [Farxiga] 10 mg PO DAILY 07/18/20 07/18/20 rosuvastatin 20 mg PO DAILY 07/18/20 07/18/20 Allergies Allergy/AdvReac Type Severity Reaction Status Date / Time Sulfa (Sulfonamide Allergy Unknown Rash Verified 07/18/20 02:00 Antibiotics) Review of Systems Review of Systems: All systems reviewed & are unremarkable except as noted in HPI and below Constitutional: Constitutional: Denies body ache(s), Denies chills, Denies excessive sweating, Denies fatigue, Denies fever(s), Denies headache(s), Denies lethargy, Denies malaise, Denies weakness and Denies weight loss Eyes: Eyes: Denies blurry vision, Denies change in vision and Denies loss of vision ENT: Denies dizziness, Denies ear discharge, Denies headache(s), Denies lip swelling, Denies epistaxis, Denies nasal congestion, Denies neck pain, Denies throat swelling and Denies tongue swelling Cardiovascular: Cardiovascular: Denies chest pain, Denies chest pain at rest, Denies chest pain with activity, Denies diaphoresis, Denies rapid heart rate, Denies edema, Denies irregular heart rhythm, Denies lightheadedness and Denies palpitations Respiratory: Respiratory: Denies chest congestion and Denies hemoptysis Gastrointestinal: Gastrointestinal: Denies abdominal pain, Denies melena, Denies hematochezia, Denies diarrhea, Denies nausea, Denies vomiting and Denies hematemesis Musculoskeletal: Musculoskeletal: Denies abnormal gait, Denies deformity, Denies joint swelling, Denies limited range of motion, Denies neck pain and Denies numbness Neurologic: Denies Abnormal speech present, Denies abnormal gait, Denies confusion, Denies dizziness, Denies headache(s), Denies focal weakness, Denies loss of vision, Denies numbness, Denies Other visual disturbances, Denies Sensory deficit (Neuro) and Denies weakness Psychiatric: Psychiatric: Denies confusion, Denies depression, Denies auditory hallucinations, Denies homicidal ideation and Denies suicidal ideation Endocrine: Endocrine: Denies cold intolerance, Denies excessive sweating, Denies fatigue, Denies heat intolerance and Denies palpitations Hematologic/Lymphatic: Hematologic/Lymphatic: Denies easy bleeding and Denies easy bruising Allergic/Immunologic: Allergic/Immunologic: Denies lip swelling, Denies throat swelling and Denies tongue swelling PMFSH Past Medical History Medical History CAD (coronary artery disease) COPD (chronic obstructive pulmonary disease) Essential (primary) hypertension Gout, unspecified Hypertension with heart disease [place] (myocardial infarction) Surgical History Surgical History History of right-sided
[2020-07-18] MEDS: IPRATROPIUM BR 0.02% INH SOLN 0.5 MG/2.5 ML VIAL INHALATION (02:05)
[2020-07-18] MEDS: ALBUTEROL SULFATE NEB 2.5 MG/0.5 ML INH 5 MG INHALATION (02:05)
[2020-07-18] MEDS: methylPREDNISolone SOD SUCC 125 MG VIAL IV PUSH (02:09)
[2020-07-18 02:15] LABS: Base Excess ABG -0.9 mEq/l (+/-2.0); Carboxyhemoglobin 1.1 % THb (0-2.0); Fractional Inspired Oxygen 21 %; HCO3 ABG 23.8 mEq/l (22.0-26.0); Methemoglobin ABG 0.3 %THb (0-1.5); Oxygen Content ABG 17.2 %vol (16.0-22.0); Oxygen Saturation ABG 92.1 % (95.0-100.0); Oxyhemoglobin 90.8 % THb (90.0-100.0); PCO2 ABG 39.8 mmHg (35.0-45.0); PO2 ABG 63.1 mmHg (80.0-100.0); Reduced Hemoglobin 7.8 %THb (0-5.0); Total Hemoglobin 13.5 g/dL (12.0-18.0); pH ABG 7.395 (7.350-7.450)
[2020-07-18 02:16] LABS: Device ROOM AIR; Modified Allen's Test Pass; Site Drawn LEFT RADIAL
[2020-07-18 02:26] LABS: Basophils Absolute Auto 0.1 K/mm3 (0.0-0.1); Basophils Percent Auto 0.6 % (0.2-1.2); Eosinophils Absolute Auto 0.1 K/mm3 (0-0.3); Eosinophils Percent Auto 0.6 % (0-4.4); Hematocrit 41.7 % (42.0-52.0); Hemoglobin 13.4 g/dL (14.0-18.0); Immature Granulocyte Absolute 0.05 K/mm3 (0.00-0.031); Immature Granulocyte Percent A 0.6 % (0-0.5); Lymphocytes Absolute Auto 0.85 K/mm3 (0.9-3.2); Lymphocytes Percent Auto 9.4 % (18.3-44.2); Mean Corpuscular HGB Conc 32.1 g/dl (32-36); Mean Corpuscular Hemoglobin 29.8 pg (26-34); Mean Corpuscular Volume 92.7 fl (80-100); Mean Platelet Volume 9.9 fl (7.4-10.4); Monocytes Absolute Auto 0.9 K/mm3 (0.1-0.6); Monocytes Percent Auto 9.6 % (2.6-8.5); Neutrophils Absolute Auto 7.2 K/mm3 (1.3-6.7); Neutrophils Percent Auto 79.2 % (45.5-73.1); Platelet Count Result 317 k/mm3 (150-375); Red Cell Distribution Width 13.8 % (11.5-14.5); White Blood Count 9.1 K/mm3 (4.5-10.0)
[2020-07-18 02:35] LABS: Anion Gap 10 mmol/L (8-16); Blood Urea Nitrogen 12 mg/dL (9-20); Calcium 9.2 mg/dL (8.4-10.2); Carbon Dioxide 28 mmol/L (22-30); Chloride 102 mmol/L (98-107); Estimated CRCL calculation 55 ml/min; Estimated Glomerular Filt Rate > 60; Glucose 139 mg/dL (75-110); INR 1.1; Potassium 3.6 mmol/L (3.4-5.0); Prothrombin Time 14.3 Seconds (11.1-14.7); Sodium 140 mmol/L (137-145)
[2020-07-18 02:36] LABS: Lactic Acid Reflex 1.2 mmol/L (0.7-2.1); Partial Thromboplastin Time 26.5 SECONDS (22.3-36.8)
[2020-07-18 02:45] LABS: NT Pro B Type Natriuretic Pept 8420 pg/mL (5-100)
[2020-07-18 02:47] LABS: Troponin I 0.034 ng/mL (0.000-0.034)
[2020-07-18 03:08] LABS: D Dimer 0.62 ug/mL (<0.48)
[2020-07-18] MEDS: FUROSEMIDE INJ 40 MG/4 ML VIAL 20 MG IV PUSH (03:09)
== END 2020-07-18 05:59 | disposition home or self-care (01) ==
PROVIDERS: Emergency Provider Emergency Medicine; PCP Family Medicine
DX: I50.9 Heart failure, unspecified (principal); I11.0 Hypertensive heart disease with heart failure; I25.10 Atherosclerotic heart disease of native coronary artery without angina pectoris; J44.9 Chronic obstructive pulmonary disease, unspecified; M10.9 Gout, unspecified; I44.7 Left bundle-branch block, unspecified; R94.31 Abnormal electrocardiogram [ECG] [EKG]; I51.7 Cardiomegaly; J90 Pleural effusion, not elsewhere classified; R91.8 Other nonspecific abnormal finding of lung field; Z79.82 Long term (current) use of aspirin; Z95.1 Presence of aortocoronary bypass graft; F17.210 Nicotine dependence, cigarettes, uncomplicated
CPT/HCPCS: 36415; 36600; 71046; 71275; 80048; 82375; 82805; 83050; 83605; 83880; 84484; 85025; 85380; 85610; 85730; 93005; 94640; 96374; 96375; 99284; J1940; J2930; Q9967

== ENCOUNTER 2020-08-01 23:11 | Observation (INO) | payer MEDICARE, SELFPAY ==
--- NOTE | ~2020-08-01 | XR_ITS ---
EXAMINATION: XR chest 2V EXAM DATE: 08/02/2020 01:00 INDICATION: Shortness of breath. TECHNIQUE: Frontal and lateral projections of the chest obtained and reviewed. Comparison is made to prior examination from 07/18/2020. FINDINGS: Cardiomegaly. There is pulmonary vascular congestion. There is indistinct reticulation wit h a bibasal predominance which may indicate pulmonary edema. No confluent consolidation or pneumothor ax. Small pleural effusions. There is aortic arteriosclerosis. Sternotomy wires are present without f indings to suggest sternal dehiscence. Similar appearance on prior study. IMPRESSION: 1. Findings consistent with mild CHF exacerbation. Reviewed, dictated and finalized at location A.
[2020-08-01 23:13] VITALS: PULSE 83; RESP 22; TEMP 36.7; O2SAT 92
--- NOTE | 2020-08-01 23:23 | PC.NURSE ---
Pt presents to ED via EMS with complaints of sob for the past 2 hours. Per ems, pt was provided x1 tablet of 0.4mg nitro and 324mg of ASA. Pt presents alert and oriented x4. Pt noted with hx of MS and CHF. Pt arrived with zoll life vest in place. Pt Denies chest pain at this time. Breathing noted to be labored and lungs sounds are wet and diminished bilaterally. Pt able to converse with some difficulty. Pt also arrived with 4 liters of O2 in place with an O2 saturation of 91% and denies use of home O2. Vitals are stable. EKG completed upon arrival.
--- NOTE | 2020-08-01 23:25 | ECG_ITS ---
Measurements Intervals [place] Rate: 81 P: 54 AK: 200 QRS: -62 QRSD: 215 T: 105 QT: 506 QTc: 588 Interpretive Statements SINUS RHYTHM LEFT AXIS DEVIATION BORDERLINE AV CONDUCTION DELAY LEFT BUNDLE BRANCH BLOCK BASELINE ARTIFACT- I, II, III, AVR, AVL ABNORMAL ECG Electronically Signed On 08-02-2020 6:29:44 CDT by John Zurita D.O.
--- NOTE | 2020-08-01 23:25 | PC.NURSE ---
Call button and personal items within reach. Pt advised to press call button for assistance.
[2020-08-01 23:27] VITALS: BP 144/81; PULSE 81; RESP 24; TEMP 36.7; O2SAT 91
--- NOTE | 2020-08-01 23:33 | PC.NURSE ---
Pt provided urinal for urine specimen.
[2020-08-02 00:36] LABS: Alveolar/Arterial O2 Gradient 155.3 mmHg; Base Excess ABG 0.9 mEq/l (+/-2.0); Carboxyhemoglobin 0.8 % THb (0-2.0); Fractional Inspired Oxygen 40 %; HCO3 ABG 25.8 mEq/l (22.0-26.0); Modified Allen's Test Pass; Oxygen Content ABG 17.6 %vol (16.0-22.0); Oxygen Saturation ABG 96.1 % (95.0-100.0); Oxyhemoglobin 94.7 % THb (90.0-100.0); PO2 ABG 81.6 mmHg (80.0-100.0); PO2 FiO2 Ratio Arterial Blood 2.04 %; Reduced Hemoglobin 4.5 %THb (0-5.0); Site Drawn LEFT RADIAL; Total Hemoglobin 13.2 g/dL (12.0-18.0); pH ABG 7.406 (7.350-7.450)
[2020-08-02 00:37] LABS: Device NASAL CANNULA
[2020-08-02 00:39] LABS: Basophils Percent Auto 0.3 % (0.2-1.2); Eosinophils Percent Auto 0.3 % (0-4.4); Hematocrit 40.1 % (42.0-52.0); Hemoglobin 12.8 g/dL (14.0-18.0); Immature Granulocyte Absolute 0.07 K/mm3 (0.00-0.031); Immature Granulocyte Percent A 0.6 % (0-0.5); Lymphocytes Absolute Auto 0.68 K/mm3 (0.9-3.2); Lymphocytes Percent Auto 6.2 % (18.3-44.2); Mean Corpuscular HGB Conc 31.9 g/dl (32-36); Mean Corpuscular Hemoglobin 29.4 pg (26-34); Mean Corpuscular Volume 92.2 fl (80-100); Mean Platelet Volume 10.3 fl (7.4-10.4); Monocytes Absolute Auto 1.1 K/mm3 (0.1-0.6); Neutrophils Absolute Auto 9.1 K/mm3 (1.3-6.7); Neutrophils Percent Auto 82.6 % (45.5-73.1); Platelet Count Result 274 k/mm3 (150-375); Red Blood Count 4.35 M/mm3 (4.6-6.20); Red Cell Distribution Width 13.7 % (11.5-14.5); White Blood Count 11.1 K/mm3 (4.5-10.0)
--- NOTE | 2020-08-02 00:46 | PC.NURSE ---
Pt resting on cart and remains alert and oriented x4. Vitals are stable and pt in no obvious distress. Call button and personal items within reach. Pt advised to press call button for assistance. Pt continues to tolerate O2 well with 98% O2 saturation on 4 liters.
[2020-08-02 00:47] VITALS: BP 125/80; PULSE 72; RESP 17; O2SAT 98
[2020-08-02 00:49] LABS: INR 1.1; Prothrombin Time 15.1 Seconds (11.1-14.7)
[2020-08-02 00:50] LABS: Partial Thromboplastin Time 27.1 SECONDS (22.3-36.8)
[2020-08-02 00:52] LABS: Anion Gap 7 mmol/L (8-16); Blood Urea Nitrogen 18 mg/dL (9-20); Carbon Dioxide 29 mmol/L (22-30); Chloride 103 mmol/L (98-107); Estimated CRCL calculation 56 ml/min; Estimated Glomerular Filt Rate > 60; Glucose 161 mg/dL (75-110); Potassium 3.7 mmol/L (3.4-5.0); Sodium 139 mmol/L (137-145)
[2020-08-02 01:31] LABS: NT Pro B Type Natriuretic Pept 4490 pg/mL (5-100)
--- NOTE | 2020-08-02 01:53 | PC.NURSE ---
Attending physician present at bedside. Pt remains alert and oriented x4 with stable vitals and is in no obvious distress. Call button and personal items within reach. Pt advised to press call button for assistance.
[2020-08-02] MEDS: FUROSEMIDE INJ 40 MG/4 ML VIAL IV PUSH (01:54)
[2020-08-02 02:01] VITALS: BP 138/82; PULSE 68; RESP 19; TEMP 36.7; O2SAT 99
--- NOTE | 2020-08-02 02:14 | ED.SOB ---
HPI - SOB/Dyspnea General Chief Complaint: Shortness of Breath/Dyspnea Stated Complaint: difficulty breathing Time Seen by Provider: 08/02/20 00:38 Source: patient Mode of arrival: EMS Limitations: no limitations History of Present Illness HPI Narrative: 79-year-old with a history of coronary artery disease s/p CABG 3 months ago also has LifeVest, history of COPD here with complaints of shortness of breath. Patient states that he was gasping for air called 911 wants to put oxygen he states he feels great. He denied any chest pain, fever or chills. MD elicited complaint: shortness of breath Pertinent past history: COPD and congestive heart failure Onset (ago): hour(s) (2) Timing: constant Severity: moderate Exacerbating factors: nothing Relieving factors: oxygen Known history of: COPD and congestive heart failure Related Data Home oxygen amount: none Home Medications Medication Instructions Recorded Confirmed aspirin 325 mg tablet,delayed 325 mg PO DAILY 03/07/19 07/16/20 release rosuvastatin 20 mg PO DAILY 05/03/20 07/16/20 valacyclovir 500 mg PO DAILY 05/03/20 07/16/20 amiodarone 200 mg tablet 200 mg PO DAILY 05/22/20 07/16/20 metoprolol succinate 50 mg 75 mg PO DAILY tablet 05/22/20 07/16/20 tablet,extended release 24 hr dapagliflozin [Farxiga] 10 mg PO DAILY 07/18/20 07/18/20 rosuvastatin 20 mg PO DAILY 07/18/20 07/18/20 Allergies Allergy/AdvReac Type Severity Reaction Status Date / Time Sulfa (Sulfonamide Allergy Unknown Rash Verified 07/18/20 02:00 Antibiotics) Review of Systems Review of Systems: All systems reviewed & are unremarkable except as noted in HPI and below Constitutional: Constitutional: Reports no additional constitutional complaints Eyes: Eyes: Reports no additional eye complaints ENT: Reports system reviewed and no additional complaints, except as documented Respiratory: Respiratory: Reports as per HPI Gastrointestinal: Gastrointestinal: Reports no additional gastrointestinal complaints Musculoskeletal: Musculoskeletal: Reports no additional musculoskeletal complaints Integumentary/Breasts: Skin/Breast: Reports system reviewed and no additional complaints, except as [facility]u [facility] Past Medical History Medical History CAD (coronary artery disease) COPD (chronic obstructive pulmonary disease) Essential (primary) hypertension Gout, unspecified Hypertension with heart disease [place] (myocardial infarction) Surgical History Surgical History History of right-sided carotid endarterectomy Hx of CABG S/P CABG (coronary artery bypass graft) Family History Family History Father Lung cancer Social History Social History Smoking packs per day: 3 Smoking cigarettes per day: 60.0 Years smoked: 21 Smoking pack-years: 63.00 Smoking status: Current every day smoker Tobacco type: cigarettes Second hand tobacco smoke exposure: No Alcohol intake: former Substance use: former Substance use type: does not use Gender identity (if verbalized by the patient): Male Spiritual care concerns: No Exam Narrative: Exam Narrative: GENERAL: Well-appearing, well-nourished, and in no acute distress. HEAD: Normocephalic, atraumatic. EYES: PERRLA and EOMI. ENT: Nares clear, no rhinorrhea or epistaxis. Mucous membranes moist. NECK: Supple. CHEST: No respiratory distress. Few basilar crackles but no wheezing. Sternotomy incision present, also has LifeVest HEART: Regular rate and rhythm. No murmur heard. Normal peripheral pulses. ABDOMEN: Soft, nontender, nondistended, normal active bowel sounds. EXTREMITIES: Normal range of motion. No edema. SKIN: Warm, dry, no rash. NEURO: No focal deficits. Alert and oriented x3. PSYCH: Normal mood and affect. Course Co
--- NOTE | 2020-08-02 03:17 | PC.NURSE ---
Report received from CHELA Martinez.
--- NOTE | 2020-08-02 03:19 | PC.NURSE ---
Report called to receiving nurse, Rosey. Ok for pt to go to floor.
[2020-08-02 03:24] VITALS: BP 136/86; PULSE 68; RESP 22; O2SAT 98
[2020-08-02 03:25] VITALS: BP 136/86; PULSE 68; RESP 22; O2SAT 98
--- NOTE | 2020-08-02 03:54 | ADMGEN ---
This patient, Mahendra Fletcher, was admitted to IMU Room 211-01 on 08/02/20 at 0330. Patient/family oriented to hospital policies and general routines including ID bracelet, bed and alarms, visiting hours, pain management, procedures, bathroom and other care routines, personal items, smoking policy, room service/diet, and visiting hours. Information on how to activate the Rapid Response Team has been discussed. Patient/Family are encouraged to report perceived risks to care and to ask questions if they do not understand what they are told or what they should do.
--- NOTE | 2020-08-02 03:56 | PM.IMHP ---
H&P: HPI History of Present Illness Date/Time: 08/02/20 03:56 Chief Complaint: Shortness of breath Narrative: This is a 79-year-old male with past medical history significant for COPD coronary artery disease patient is status post coronary artery bypass graft 3 months ago he is also wearing a life vest he presented to the emergency room after driving himself due to worsening shortness of breath according to the patient it started earlier in the day and decided to come to the emergency room after it got worse. Patient states that he has been his usual state of health no fevers no rigors no chills no nausea no vomiting no diarrhea no near-syncope or syncope no palpitations no cough no sputum production no chest pain no leg swelling. Preliminary workup was significant for elevated BNP and chest x-ray with infiltrates. Review of Systems Review of Systems: Narrative: Shortness of breath Constitutional: Constitutional: Denies chills, Denies fatigue, Denies fever(s) and Denies weakness Eyes: Eyes: Denies change in vision ENT: Denies nasal congestion, Denies nasal discharge and Denies nasal obstruction Cardiovascular: Cardiovascular: Denies chest pain, Denies chest pain at rest, Denies irregular heart rhythm, Denies lightheadedness, Denies radiating jaw, neck or arm pain, Denies palpitations, Reports dyspnea and Reports dyspnea on exertion Respiratory: Respiratory: Reports cough, Reports dyspnea and Denies wheezing Gastrointestinal: Gastrointestinal: Denies nausea and Denies vomiting Musculoskeletal: Musculoskeletal: Denies muscle weakness Integumentary/Breasts: Skin/Breast: Denies rash Neurologic: Denies focal weakness and Denies Sensory deficit (Neuro) Psychiatric: Psychiatric: Reports no additional psychiatric complaints Endocrine: Endocrine: Reports no additional endocrine complaints Hematologic/Lymphatic: Hematologic/Lymphatic: Reports no additional hematologic/lymphatic complaints Allergic/Immunologic: Allergic/Immunologic: Reports no additional allergic/immunologic complaints [facility] Past Medical History Medical History CAD (coronary artery disease) COPD (chronic obstructive pulmonary disease) Essential (primary) hypertension Gout, unspecified Hypertension with heart disease Old [place] (myocardial infarction) Surgical History Surgical History History of right-sided carotid endarterectomy Hx of CABG S/P CABG (coronary artery bypass graft) Family History Family History Father Lung cancer Social History Social History Smoking packs per day: 3 Smoking cigarettes per day: 60.0 Years smoked: 21 Smoking pack-years: 63.00 Smoking status: Former smoker Tobacco type: cigarettes Second hand tobacco smoke exposure: Yes Alcohol intake: never Substance use: never Substance use type: does not use Gender identity (if verbalized by the patient): Male Spiritual care concerns: No Meds Home Medications and Allergies Home Medications Medication Instructions Recorded Confirmed Type aspirin 325 mg tablet,delayed 325 mg PO DAILY 03/07/19 07/16/20 History release allopurinol 300 mg tablet 300 mg PO DAILY #90 tablet 11/06/19 07/16/20 Rx rosuvastatin 20 mg PO DAILY 05/03/20 07/16/20 History valacyclovir 500 mg PO DAILY 05/03/20 07/16/20 History amiodarone 200 mg tablet 200 mg PO DAILY 05/22/20 07/16/20 History metoprolol succinate 50 mg 75 mg PO DAILY tablet 05/22/20 07/16/20 History tablet,extended release 24 hr lisinopril 20 mg tablet 20 mg PO DAILY #30 tablet 07/05/20 07/16/20 Rx dapagliflozin [Farxiga] 10 mg PO DAILY 07/18/20 07/18/20 History furosemide 20 mg tablet 20 mg PO QAM PRN #30 tablet 07/18/20 Rx rosuvastatin 20 mg PO DAILY 07/18/20 07/18/20 History Allergies Allergy/AdvRea
[2020-08-02 04:00] VITALS: BP 133/77; PULSE 64; PULSE 71; RESP 18; TEMP 35.9; O2SAT 98; BMI 25.9
[2020-08-02 06:00] VITALS: PULSE 64
--- NOTE | 2020-08-02 06:43 | PC.NURSE ---
Patient pleasantly insists on getting dressed and leaving AMA. He has called his daughter Frances to pick him up. Spoke with daughter concerning father leaving AMA and his plan to call Dr. Beckwith. Daughter on her way to 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
--- NOTE | 2020-08-02 14:40 | PM.EVENT ---
Event Note Event Note Event Note: The patient left against medical advice at 6:43 am on 08/02/20 prior to my evaluation.
== END 2020-08-02 06:40 | disposition left against medical advice (07) ==
LOC: ANHED 08-02 02:20 → ANHIMU 08-02 03:01
PROVIDERS: General Practice; Admitting Provider Internal Medicine; Emergency Provider Family Medicine; PCP Family Medicine; Visit Provider Physician Assistant
DX: R06.02 Shortness of breath (principal); J44.9 Chronic obstructive pulmonary disease, unspecified; R77.8 Other specified abnormalities of plasma proteins; I25.10 Atherosclerotic heart disease of native coronary artery without angina pectoris; I10 Essential (primary) hypertension; I25.2 Old myocardial infarction; Z95.1 Presence of aortocoronary bypass graft; Z87.891 Personal history of nicotine dependence
CPT/HCPCS: 36415; 36600; 71046; 80048; 82375; 82805; 83050; 83880; 84484; 85025; 85610; 85730; 93005; 96374; 99285; G0378; J1940

== ENCOUNTER 2020-08-09 20:23 | Inpatient (IN) | payer MEDICARE, SELFPAY ==
--- NOTE | ~2020-08-09 | XR_ITS ---
XR chest 2V DATE: 08/09/2020 20:50 INDICATION: Shortness of breath. History of COPD, hypertension, congestive heart failure. TECHNIQUE: AP and lateral views COMPARISON: 08/02/2020 PA and lateral chest FINDINGS: Again noted is cardiomegaly, pulmonary congestion and redistribution, pulmonary interstitia l prominence including bilateral Adelaida B-lines, prominence of the fissures, consistent with pulmonar y interstitial and subpleural edema. There are mild infiltrates or atelectasis at the lung bases. Minimal if any pleural effusion. No pneu mothorax. Status post sternotomy. Aortic calcification. Diffuse osteopenia. IMPRESSION: Congestive heart failure with pulmonary interstitial and subpleural edema Mild bibasilar infiltrate or atelectasis Little interval change since 08/02/2020 Reviewed, dictated and finalized at location A.
[2020-08-09 20:28] VITALS: BP 152/95; PULSE 108; RESP 24; TEMP 36.4; O2SAT 94
--- NOTE | 2020-08-09 20:32 | ECG_ITS ---
Measurements Intervals [place] Rate: 100 P: 122 RI: 171 QRS: -74 QRSD: 222 T: 60 QT: 404 QTc: 522 Interpretive Statements SINUS TACHYCARDIA LEFT AXIS DEVIATION LEFT BUNDLE BRANCH BLOCK BASELINE ARTIFACT- II, III, AVL, AVF, V3-V6 ABNORMAL ECG Electronically Signed On 08-10-2020 6:31:28 CDT by John Zurita D.O.
[2020-08-09 20:33] VITALS: PULSE 108
[2020-08-09 20:48] VITALS: O2SAT 98
[2020-08-09 21:07] LABS: Basophils Absolute Auto 0.1 K/mm3 (0.0-0.1); Basophils Percent Auto 0.7 % (0.2-1.2); Eosinophils Absolute Auto 0.2 K/mm3 (0-0.3); Hematocrit 51.3 % (42.0-52.0); Immature Granulocyte Absolute 0.08 K/mm3 (0.00-0.031); Immature Granulocyte Percent A 0.7 % (0-0.5); Lymphocytes Absolute Auto 3.95 K/mm3 (0.9-3.2); Lymphocytes Percent Auto 33.3 % (18.3-44.2); Mean Corpuscular HGB Conc 31.2 g/dl (32-36); Mean Corpuscular Hemoglobin 29.3 pg (26-34); Mean Platelet Volume 9.9 fl (7.4-10.4); Monocytes Absolute Auto 1.6 K/mm3 (0.1-0.6); Monocytes Percent Auto 13.8 % (2.6-8.5); Neutrophils Absolute Auto 5.9 K/mm3 (1.3-6.7); Neutrophils Percent Auto 49.5 % (45.5-73.1); Platelet Count Result 450 k/mm3 (150-375); Red Blood Count 5.46 M/mm3 (4.6-6.20); Red Cell Distribution Width 13.7 % (11.5-14.5); White Blood Count 11.9 K/mm3 (4.5-10.0)
[2020-08-09] MEDS: FUROSEMIDE INJ 40 MG/4 ML VIAL IV PUSH (21:07)
[2020-08-09 21:10] VITALS: PULSE 111; RESP 36; O2SAT 97
[2020-08-09 21:18] LABS: Prothrombin Time 13.4 Seconds (11.1-14.7)
[2020-08-09 21:19] LABS: Partial Thromboplastin Time 24.1 SECONDS (22.3-36.8)
[2020-08-09 21:23] LABS: Anion Gap 14 mmol/L (8-16); Blood Urea Nitrogen 16 mg/dL (9-20); Calcium 9.6 mg/dL (8.4-10.2); Carbon Dioxide 28 mmol/L (22-30); Chloride 102 mmol/L (98-107); Estimated CRCL calculation 47 ml/min; Estimated Glomerular Filt Rate 58; Glucose 231 mg/dL (75-110); Potassium 3.4 mmol/L (3.4-5.0); Sodium 144 mmol/L (137-145)
[2020-08-09 21:47] LABS: NT Pro B Type Natriuretic Pept 7250 pg/mL (5-100); Troponin I 0.098 ng/mL (0.000-0.034)
--- NOTE | 2020-08-09 22:21 | ED.SOB ---
HPI - SOB/Dyspnea General Chief Complaint: Shortness of Breath/Dyspnea Stated Complaint: sob Time Seen by Provider: 08/09/20 20:29 History of Present Illness HPI Narrative: Patient is a 79-year-old male who presents ER with sudden onset shortness of breath. Began 1 hour prior to arrival. Associated with diaphoresis. No chest pain or chest pressure. Patient has history of CABG 1 month ago performed at [facility]. He was admitted to this hospital 1 week ago with CHF and possible pneumonia. He was diuresed. He ended up leaving AGAINST MEDICAL ADVICE because he felt better. He has not been wearing oxygen. Denies any high salt meals. He does wear his LifeVest due to low ejection fraction. Related Data Home Medications Medication Instructions Recorded Confirmed aspirin 325 mg tablet,delayed 325 mg PO QPM 03/07/19 08/09/20 release rosuvastatin 20 mg PO DAILY 05/03/20 08/09/20 amiodarone 200 mg tablet 200 mg PO DAILY 05/22/20 08/09/20 metoprolol succinate 50 mg 75 mg PO DAILY tablet 05/22/20 08/09/20 tablet,extended release 24 hr dapagliflozin [Farxiga] 10 mg PO DAILY 07/18/20 08/09/20 furosemide 20 mg PO DAILY 08/02/20 08/09/20 Allergies Allergy/AdvReac Type Severity Reaction Status Date / Time Sulfa (Sulfonamide Allergy Unknown Rash Verified 07/18/20 02:00 Antibiotics) Review of Systems Review of Systems: All systems reviewed & are unremarkable except as noted in HPI and below Constitutional: Constitutional: Denies chills, Reports fatigue and Denies fever(s) ENT: Denies nasal congestion and Denies sore throat Cardiovascular: Cardiovascular: Denies chest pain, Denies rapid heart rate and Denies radiating jaw, neck or arm pain Respiratory: Respiratory: Denies chest congestion, Reports cough, Reports dyspnea and Denies wheezing Gastrointestinal: Gastrointestinal: Denies abdominal pain, Denies nausea and Denies vomiting [facility] Past Medical History Medical History (Updated 08/10/20 @ 05:18 by Rafa Luciano MD) Bilateral carotid artery disease With complete occlusion of the left carotid, right carotid endarterectomy 2004 CAD (coronary artery disease) COPD (chronic obstructive pulmonary disease) Diabetes mellitus Essential (primary) hypertension Gout, unspecified Hypertension with heart disease Ischemic cardiomyopathy With life vest in place Kidney stones Mixed hyperlipidemia Spondylosis of lumbar region without myelopathy or radiculopathy Tobacco dependence He chewed tobacco from time he was a teenager up until use 58 years old at that time he began smoking and smoked 2.5 packs per day quit smoking April 2020 Surgical History Surgical History (Updated 08/10/20 @ 04:21 by Taylor Dill DO) History of cardiac catheterization (05/03/20) Left main: large caliber vessel but seems to be very heavily calcified with 90% stenosis involving most of the body of the left main Lad medium size artery showed proximal calcified 90%, and mid 75%, 1st diagonal branch with proximal 75% disease Left circumflex artery, mid circ 75% disease RCA: Dominant vessel, showed mid RCA significant irregularity with a 40-50% disease. History of right-sided carotid endarterectomy (~2004) Hx of cholecystectomy S/P CABG (coronary artery bypass graft) (05/06/20) 3 vessel CABG performed at [facility] by Dr. Armendariz Family History Family History Father Lung cancer Social History Social History (Updated 08/10/20 @ 04:23 by Taylor Dill DO) Social History: The patient is and lives alone. He has 1 daughter. He is retired from [employer]. He chewed tobacco for over 50 years. He quit chewing tobacco at 58 years old and started smoking 2.5 packs of cigarettes per day. He smoked for 21 years and quit smoking in April of 2020 when he had his bypass procedure. He does not drink alcohol or use illicit substances. Primary car
[2020-08-10] VITALS (19 sets, daily range): BP systolic 125–152; BP diastolic 75–92; PULSE 65–87; RESP 18–22; TEMP 36.1–36.4; O2SAT 94–99; BMI 27.0
--- NOTE | 2020-08-10 01:08 | ECG_ITS ---
Measurements Intervals [place] Rate: 75 P: 24 MD: 190 QRS: -42 QRSD: 208 T: 133 QT: 495 QTc: 556 Interpretive Statements SINUS RHYTHM POSSIBLE LEFT ATRIAL ENLARGEMENT LEFT AXIS DEVIATION LEFT BUNDLE BRANCH BLOCK BASELINE ARTIFACT- II, III, AVR, AVF, V1, V3-V6 ABNORMAL ECG Electronically Signed On 08-10-2020 6:31:13 CDT by John Zurita D.O.
--- NOTE | 2020-08-10 01:36 | ADMGEN ---
This patient, Mahendra Fletcher, was admitted to IMU Room 213-01. Patient/family oriented to hospital policies and general routines including ID bracelet, bed and alarms, visiting hours, pain management, procedures, bathroom and other care routines, personal items, smoking policy, room service/diet, and visiting hours. Information on how to activate the Rapid Response Team has been discussed. Patient/Family are encouraged to report perceived risks to care and to ask questions if they do not understand what they are told or what they should do.
--- NOTE | 2020-08-10 01:55 | PM.IMHP ---
H&P: HPI History of Present Illness Date/Time: 08/10/20 01:55 Chief Complaint: Shortness of breath Narrative: 79-year-old with past medical history of essential hypertension, hyperlipidemia, carotid artery stenosis, CVA, coronary artery disease status post three-vessel CABG in severe ischemic cardiomyopathy who presented to the ER with sudden onset of shortness of breath. The patient had been admitted to the hospital 07/23/2020 with similar symptoms but left AMA shortly after admission when his symptoms improved after Lasix. Patient reports that this evening he was lying down watching TV, around 7:00 p.m., when he developed sudden onset of shortness of breath. He denied having any chest pain or prodrome will symptoms. When he arrived to the ER he was satting 80% on room air and was tachypneic. He was placed on BiPAP and given Lasix with significant improvement in symptoms. He reports that he has been taking his cardiac medications as directed. 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 He has had his life vest in place in it has not fired. He has not noticed any lower extremity swelling abdominal distension or orthopnea. However, he reports that the head of his bed is chronically elevated several inches and he usually uses 2 pillows. He states that he does this to watch TV better. He reports that he does not check his glucoses. He does not recall when his last hemoglobin A1c was but he is due to have a hemoglobin A1c in the next week or 2. In the ER his glucoses were noted to be greater than 200. He reports that his weight was stable at 190 lb 2 days ago. Review of Systems Review of Systems: Narrative: 12 systems were reviewed with pertinent positives and negatives per HPI. Except as documented in the HPI, all other systems were reviewed and are negative. [facility] Past Medical History Medical History (Updated 08/10/20 @ 04:42 by Taylor Dill DO) Bilateral carotid artery disease With complete occlusion of the left carotid, right carotid endarterectomy 2004 CAD (coronary artery disease) COPD (chronic obstructive pulmonary disease) Diabetes mellitus Essential (primary) hypertension Gout, unspecified Hypertension with heart disease Ischemic cardiomyopathy With life vest in place Kidney stones Mixed hyperlipidemia Spondylosis of lumbar region without myelopathy or radiculopathy Tobacco dependence He chewed tobacco from time he was a teenager up until use 58 years old at that time he began smoking and smoked 2.5 packs per day quit smoking April 2020 Surgical History Surgical History (Updated 08/10/20 @ 04:21 by Taylor Dill DO) History of cardiac catheterization (05/03/20) Left main: large caliber vessel but seems to be very heavily calcified with 90% stenosis involving most of the body of the left main Lad medium size artery showed proximal calcified 90%, and mid 75%, 1st diagonal branch with proximal 75% disease Left circumflex artery, mid circ 75% disease RCA: Dominant vessel, showed mid RCA significant irregularity with a 40-50% disease. History of right-sided carotid endarterectomy (~2004) Hx of cholecystectomy S/P CABG (coronary artery bypass graft) (05/06/20) 3 vessel CABG performed at [facility] by Dr. Armendariz Family History Family History Father Lung cancer Social History Social History (Updated 08/10/20 @ 04:23 by Taylor Dill DO) Social History: The patient is and lives alone. He has 1 daughter. He is retired from [employer]. He chewed tobacco for over 50 years. He quit chewing tobacco at 58 years old and started smoking 2.5 packs of cigarettes per day. He smoked for 21 years and quit smoking in April of 2020 when he had his bypass procedure. He does not drink alcohol or use illicit substances. Primary care physician: Dr. Kvng Mcclendon Code status: Full code
[2020-08-10] MEDS: HEPARIN SODIUM 5,000 UNITS/ML VIAL 4000 UNITS IV PUSH (02:19)
[2020-08-10] MEDS: HEPARIN SOD/D5W 100 UNITS/ML 25,000 UNITS/250 ML BAG 10 UNITS IV CONT (02:20)
[2020-08-10 03:24] LABS: Basophils Percent Auto 0.3 % (0.2-1.2); Eosinophils Percent Auto 0.1 % (0-4.4); Hematocrit 42.8 % (42.0-52.0); Hemoglobin 13.8 g/dL (14.0-18.0); Immature Granulocyte Absolute 0.06 K/mm3 (0.00-0.031); Immature Granulocyte Percent A 0.6 % (0-0.5); Lymphocytes Absolute Auto 1.37 K/mm3 (0.9-3.2); Lymphocytes Percent Auto 13.5 % (18.3-44.2); Mean Corpuscular HGB Conc 32.2 g/dl (32-36); Mean Corpuscular Hemoglobin 29.4 pg (26-34); Mean Corpuscular Volume 91.3 fl (80-100); Monocytes Absolute Auto 0.9 K/mm3 (0.1-0.6); Monocytes Percent Auto 9.2 % (2.6-8.5); Neutrophils Absolute Auto 7.7 K/mm3 (1.3-6.7); Neutrophils Percent Auto 76.3 % (45.5-73.1); Platelet Count Result 346 k/mm3 (150-375); Red Blood Count 4.69 M/mm3 (4.6-6.20); Red Cell Distribution Width 13.6 % (11.5-14.5); White Blood Count 10.1 K/mm3 (4.5-10.0)
[2020-08-10 03:35] LABS: INR 1.1
[2020-08-10 07:27] LABS: Partial Thromboplastin Time 75.6 SECONDS (22.3-36.8)
--- NOTE | 2020-08-10 08:03 | ECG_ITS ---
Measurements Intervals [place] Rate: 74 P: 41 TX: 187 QRS: -42 QRSD: 205 T: 129 QT: 497 QTc: 553 Interpretive Statements SINUS RHYTHM POSSIBLE LEFT ATRIAL ENLARGEMENT LEFT AXIS DEVIATION BORDERLINE AV CONDUCTION DELAY LEFT BUNDLE BRANCH BLOCK BASELINE ARTIFACT- I, II, III, AVR, AVL, AVF ABNORMAL ECG Electronically Signed On 08-10-2020 9:18:00 CDT by John Zurita D.O.
[2020-08-10] MEDS: allopurinoL 300 MG TABLET PO (08:24)
[2020-08-10] MEDS: AMIODARONE HCL 200 MG TABLET PO (08:24)
[2020-08-10] MEDS: METOPROLOL SUCCINATE EXT REL 25 MG TABCR 75 MG PO (08:24)
[2020-08-10] MEDS: lisinopriL 20 MG TABLET PO (08:24)
[2020-08-10] MEDS: ROSUVASTATIN 10 MG TABLET 20 MG PO (08:24)
[2020-08-10] MEDS: FUROSEMIDE INJ 40 MG/4 ML VIAL IV PUSH ×2 (08:24→18:02)
[2020-08-10] MEDS: ASPIRIN 325 MG ENTERIC TABLET PO (08:33)
[2020-08-10 08:39] LABS: Glucose Point of Care 122 mg/dl (65-105)
[2020-08-10 09:16] LABS: Partial Thromboplastin Time 67.9 SECONDS (22.3-36.8)
[2020-08-10] MEDS: HEPARIN SODIUM 5,000 UNITS/ML VIAL 3500 UNITS IV PUSH ×2 (09:28→22:14)
[2020-08-10 09:44] LABS: Anion Gap 8 mmol/L (8-16); Blood Urea Nitrogen 15 mg/dL (9-20); Calcium 9.3 mg/dL (8.4-10.2); Carbon Dioxide 33 mmol/L (22-30); Chloride 101 mmol/L (98-107); Estimated CRCL calculation 53 ml/min; Estimated Glomerular Filt Rate > 60; Glucose 112 mg/dL (75-110); Potassium 3.7 mmol/L (3.4-5.0); Sodium 142 mmol/L (137-145)
--- NOTE | 2020-08-10 11:35 | PM.CNCAR ---
Assessment and Plan Assessment and plan (1) NSTEMI (non-ST elevated myocardial infarction): Code(s): I21.4 - Non-ST elevation (NSTEMI) myocardial infarction Status: Acute Assessment and Plan: 79-year-old man with h/o CAD s/p CABG ([facility], 05/06/20, 3 v., RODRIGUEZ to mild LAD, reversed saphenous vein graft to diagonal 1, reversed saphenous vein graft to abuse marginal 1), s/p NSTEMI (05/04/20), ischemic cardiomyopathy (wearing Life Vest), CVA (1995), paroxysmal atrial fibrillation (after CABG), RBBB, carotid artery stenosis (left ICA occluded, s/p R CEA 1995), hypertension, diabetes mellitus, hyperlipidemia, gout, COPD, moderate pulmonary HTN, former tobacco dependence (quit 05/06/20, 20 years), nephrolithiasis, osteoarthritis, who is seen in cardiac consultation for chief complaint of dyspnea, with non ST elevation myocardial infarction. -Patient denied chest pain on presentation or at present. -EKG demonstrated sinus tachycardia, heart rate 74-100 beats per minute, left bundle branch block (old, also noted on EKGs 07/18/20 and 08/01/2020, negative for Sgarbossa acute DC criteria in setting of LBBB). -troponin I continues to uptrend somewhat with current peak troponin I of 14.2. Continue to trend troponin I. Initial troponin I was 0.098, then 3.98, then 8.48, then 11.0 (08/10/2020 at 6:44 a.m.), then 13.6, then 14.2. - He also had non ST elevation myocardial infarction 08/02/2020 although he left AMA from [facility]. He was in the [facility] with dyspnea 08/02/2020 but left AMA after improving with Lasix initially, with peak troponin I 1.25 on 08/02/2020 during that prior presentation, before additional troponin I could be assessed, and he did not follow up in the cardiology clinic subsequently. - he received aspirin 325 mg, then continued on aspirin 81 mg daily. - began loading dose of clopidogrel 300 mg daily, then 75 mg daily. - began intravenous heparin for 48 hours until left heart catheterization. - Resumed his metoprolol succinate 75 mg daily. - continue lisinopril 20 mg daily. - Continue high-intensity statin therapy with rosuvastatin 20 mg qHS. - his prior cardiac catheterization in April 2020 demonstrated very heavily calcified left main with 90% stenosis involving most of the body of the left main and LAD medium size artery showed proximal calcified 90%. - given significant troponin elevation up to 14.2 this admission, acute on chronic congestive heart failure, with recurrent DC also on 08/02/2020, he needs left heart catheterization for definitive re-evaluation of coronary artery disease in the setting of his underlying severe coronary artery disease and recent bypass. Patient agreeable to repeat left heart catheterization after discussion of risks and benefits. -Case discussed with interventionalist Dr. Kevin Collins on 08/10/2020 with plans for continued maximal medical therapy initially to include intravenous heparin and consideration of left heart catheterization on 08/12/[address] Ruiz. (-Dr. Jarrell was initially notified of DC at 0800 on 08/10/20 by nurse phone call to the exchange forwarded by Dr. Duncan.) (2) CHF exacerbation: Code(s): I50.9 - Heart failure, unspecified Status: Acute Assessment and Plan: -He has acute on chronic heart failure with reduced ejection fraction, with ischemic cardiomyopathy (wearing Lifevest), in setting of recurrent non ST elevation myocardial infarction and with missed dose of metoprolol succinate on the morning of the day of presentation (with moderate hypertension and tachycardia initially). -He also had non ST elevation myocardial infarction 08/02/2020 although he left AMA from [facility]. He was in the [facility] with dyspnea 08/02/2020 but left AMA after improving with Lasix initially, with peak troponin I 1.25 on 08/02/2020 during that prior presentation, before additional troponin I could be assessed, and he did not follow
[2020-08-10 12:01] LABS: Glucose Point of Care 121 mg/dl (65-105)
--- NOTE | 2020-08-10 13:46 | ECHOL_ITS ---
Patient Info Name: Mahendra Fletcher Age: 79 years : 1940 Gender: Male Ht: 69 in Wt: 182 lbs BSA: 2.02 m2 HR: 69 bpm BP: 125 / 81 mmHg Technical Quality: Good Exam Date: 08/10/2020 2:19 PM Exam Location: [facility] Pulmonary Exam Room: 213 Patient Status: Inpatient Admit Date: 08/10/2020 Staff Ordering Physician: Kevin Jarrell MD Refrigeration Service Inspector: Joanna Watts RDCS Attending Provider: Taylor Dill DO Referring Physician: Wesly CARDONA; Exam Type: CA echo limited Study Info Indications - limited echo for wma EVAL LVEF Limited two-dimensional transthoracic echocardiogram is performed. Summary 1. Left ventricular chamber dimension is severely enlarged. 2. Left ventricular wall thickness is mildly increased. 3. Left ventricular systolic function is severely reduced with an ejection fraction by Biplane Method of Discs of 16 %. 4. Abnormal septal motion consistent with a post-operative state. 5. Evidence for elevated left venticular end-diastolic pressure. 6. Grade II diastolic dysfunction of the left ventricle (pseudonormal filling pattern). 7. Right ventricular chamber dimension is normal. 8. Right ventricular systolic function is normal. 9. There is mild to moderate mitral valve regurgitation. Left Ventricle Left ventricular chamber dimension is severely enlarged. Left ventricular wall thickness is mildly increased. Left ventricular systolic function is severely reduced with an ejection fraction by Biplane Method of Discs of 16 %. E/e' 18.0 is moderately elevated. Evidence for elevated left venticular end-diastolic pressure. Grade II diastolic dysfunction of the left ventricle (pseudonormal filling pattern). Abnormal septal motion consistent with a post-operative state. Right Ventricle Right ventricular chamber dimension is normal. Right ventricular systolic function is normal. Ventricular Septum Intact interventricular septum visualized by 2D imaging. Left Atria Left atrial chamber dimension is mildly enlarged. Right Atria Right atrial chamber dimension is normal. Aortic Valve Aortic valve is not well visualized. Pulmonic Valve Pulmonary valve is not well visualized. Mitral Valve The mitral valve has thickened leaflets. There is mild to moderate mitral valve regurgitation. There is no mitral valve stenosis. Tricuspid Valve The tricuspid valve is not well visualized. Pericardium/Pleural Pericardium is normal in appearance with no evidence for significant pericardial effusion. Inferior Vena Cava Inferior vena cava is not well visualized. Aorta The Empty is not well visualized. Mitral Valve Name Value Normal MV Doppler MV Decel [place] 248 cm/s2 MV PHT 62 ms MV Area (PHT) 3.6 cm2 4.0-5.0 MV Diastolic Function MV E Peak Velocity 53 cm/s MV A Peak Velocity 59 cm/s MV E/A 0.9 MV Decel Time 213 ms MV Annular TDI
[2020-08-10] MEDS: POTASSIUM CHLORIDE 20 MEQ TABLET 40 MEQ PO (14:30)
[2020-08-10] MEDS: CLOPIDOGREL BISULFATE 300 MG TABLET PO (14:30)
--- NOTE | 2020-08-10 15:17 | PM.IMPN ---
Progress Note: A&P Assessment and Plan (1) Acute respiratory failure with hypoxia: Code(s): J96.01 - Acute respiratory failure with hypoxia Status: Acute (2) NSTEMI (non-ST elevated myocardial infarction): Code(s): I21.4 - Non-ST elevation (NSTEMI) myocardial infarction Status: Acute (3) Pulmonary edema: Qualifiers: Chronicity: acute Qualified Code(s): J81.0 - Acute pulmonary edema Code(s): J81.1 - Chronic pulmonary edema Status: Acute (4) Diabetes mellitus with hyperglycemia: Qualifiers: Diabetes mellitus type: type 2 Diabetes mellitus long-term insulin use: without assembler fluorescent lights use Qualified Code(s): E11.65 - Type 2 diabetes mellitus with hyperglycemia Code(s): E11.65 - Type 2 diabetes mellitus with hyperglycemia Status: Acute Additional Plan # non ST-elevation [place] on heparin drip on heparin drip aspirin cardiology started on Plavix Mabel serial troponins with upward trend of troponin. Further workup per Cardiology of note he was recently status post CABG by Dr. Armendariz at [facility]. # Hypoxic respiratory failure: Due to pulmonary edema/congestive heart failure # acute systolic congestive heart failure: IV diuresis with Lasix 40 mg b.i.d. with improvement #Diabetes mellitus type 2 with significant hyperglycemia in the ER . hemoglobin A1c came back at 7% will continue with SSI significant hyperglycemia likely related to stress History of coronary artery disease status post CABG on 05/06/2020 # Ischemic cardiomyopathy on LifeVest EF 30-35% # Right bundle branch block # CVA 1995 # Paroxysmal atrial fibrillation postoperative # Carotid artery stenosis status post right CEA 1995 # Hypertension # Hyperlipidemia # Gout # Former smoker # Nephrolithiasis # Osteoarthritis # DVT prophylaxis: Heparin drip left heart catheterization planned on 08/12/[address] him on apnea link tonight to assess for sleep apnea Subjective Date/time seen: 08/10/20 15:17 Interval history: patient denies any chest pain. Feels lot better. He states he gets short of breath whenever he lays down. He wonders if he has sleep apnea. No leg swelling. Review of Systems Review of Systems: Narrative: - CONSTITUTIONAL: Denies weight loss, fever and chills. - HEENT: Denies changes in vision and hearing - RESPIRATORY: Reports SOB and cough. - CV: Denies palpitations and CP. - GI: Denies abdominal pain, nausea, vomiting and diarrhea. - : Denies dysuria and urinary frequency. - MSK: Denies myalgia and joint pain. - SKIN: Denies rash and pruritus. - NEUROLOGICAL: Denies headache and syncope. - PSYCHIATRIC: Denies recent changes in mood. Denies anxiety and depression. All systems reviewed & are unremarkable except as noted in HPI and below Exam Narrative: Exam Narrative: General: No acute distress, well-developed well-nourished HEENT: Cataracts noted bilaterally, no conjunctival pallor, no thyromegaly, mucous membranes are moist, fair dentition Respiratory: bilateral basal crackles, no increased work of breathing Cardiovascular: Regular rate, regular rhythm, 2+ bilateral radial pedal pulses Gastrointestinal: Soft, nontender, nondistended, positive bowel sounds Skin: No jaundice, tanned Musculoskeletal: No clubbing, cyanosis or edema Neurological: Alert and oriented, speech is clear, no facial asymmetry, no localizing neurologic deficits noted on limited exam Psychiatric: Appropriate mood and affect, pleasant and cooperative : Deferred Hematologic/lymphatic: No petechiae, no bruising, no lymphadenopathy Objective Data Vital Signs Vital Signs: Vital Signs - 24 hr 08/09/20 20:28 08/09/20 20:33 08/09/20 20:48 Temperature 97.5 F L Pulse Rate 108 H 108 H Respiratory Rate 24 H Blood Pressure 152/95 H Pulse Oximetry 94 98 08/09/20 21:10 08/10/20 00:04 08/10/20 01:47 T
[2020-08-10 15:33] LABS: Partial Thromboplastin Time 112.7 SECONDS (22.3-36.8)
[2020-08-10 15:53] LABS: Glucose Point of Care 139 mg/dl (65-105)
[2020-08-10 20:49] LABS: Glucose Point of Care 130 mg/dl (65-105)
[2020-08-10 22:03] LABS: Partial Thromboplastin Time 70.4 SECONDS (22.3-36.8)
[2020-08-11] VITALS (17 sets, daily range): BP systolic 115–134; BP diastolic 56–76; PULSE 58–68; RESP 16–18; TEMP 36.2–36.6; O2SAT 94–100
[2020-08-11] MEDS: HEPARIN SOD/D5W 100 UNITS/ML 25,000 UNITS/250 ML BAG 12 UNITS IV CONT (01:06)
[2020-08-11 05:28] LABS: Basophils Percent Auto 0.2 % (0.2-1.2); Eosinophils Absolute Auto 0.1 K/mm3 (0-0.3); Hematocrit 43.6 % (42.0-52.0); Hemoglobin 13.7 g/dL (14.0-18.0); Immature Granulocyte Absolute 0.06 K/mm3 (0.00-0.031); Immature Granulocyte Percent A 0.6 % (0-0.5); Lymphocytes Percent Auto 19.3 % (18.3-44.2); Mean Corpuscular HGB Conc 31.4 g/dl (32-36); Mean Corpuscular Hemoglobin 28.7 pg (26-34); Mean Corpuscular Volume 91.4 fl (80-100); Mean Platelet Volume 10.5 fl (7.4-10.4); Monocytes Percent Auto 10.6 % (2.6-8.5); Neutrophils Absolute Auto 6.4 K/mm3 (1.3-6.7); Neutrophils Percent Auto 68.3 % (45.5-73.1); Platelet Count Result 336 k/mm3 (150-375); Red Blood Count 4.77 M/mm3 (4.6-6.20); Red Cell Distribution Width 13.2 % (11.5-14.5); White Blood Count 9.3 K/mm3 (4.5-10.0)
[2020-08-11 05:40] LABS: Anion Gap 9 mmol/L (8-16); Blood Urea Nitrogen 17 mg/dL (9-20); Calcium 9.2 mg/dL (8.4-10.2); Carbon Dioxide 31 mmol/L (22-30); Chloride 98 mmol/L (98-107); Estimated CRCL calculation 58 ml/min; Estimated Glomerular Filt Rate > 60; Glucose 116 mg/dL (75-110); Potassium 2.9 mmol/L (3.4-5.0); Sodium 138 mmol/L (137-145)
[2020-08-11 05:45] LABS: Cholesterol 157 mg/dL (0-200); HDL Direct 64 mg/dL; Partial Thromboplastin Time 129.2 SECONDS (22.3-36.8); Triglycerides 101 mg/dL (<150)
[2020-08-11 05:56] LABS: LDL Cholesterol Direct 66 mg/dL
[2020-08-11] MEDS: FUROSEMIDE INJ 40 MG/4 ML VIAL IV PUSH ×2 (08:05→20:25)
[2020-08-11] MEDS: METOPROLOL SUCCINATE EXT REL 25 MG TABCR 75 MG PO (08:06)
[2020-08-11] MEDS: POTASSIUM CHLORIDE 20 MEQ TABLET 40 MEQ PO ×2 (08:06→12:32)
[2020-08-11] MEDS: ROSUVASTATIN 10 MG TABLET 20 MG PO (08:06)
[2020-08-11] MEDS: allopurinoL 300 MG TABLET PO (08:06)
[2020-08-11] MEDS: ASPIRIN 81 MG ENTERIC TABLET PO (08:06)
[2020-08-11] MEDS: lisinopriL 20 MG TABLET PO (08:06)
[2020-08-11] MEDS: AMIODARONE HCL 200 MG TABLET PO (08:06)
[2020-08-11] MEDS: CLOPIDOGREL BISULFATE 75 MG TABLET PO (08:06)
[2020-08-11 08:26] LABS: Glucose Point of Care 100 mg/dl (65-105)
--- NOTE | 2020-08-11 08:47 | PM.IMPN ---
Progress Note: A&P Assessment and Plan (1) Acute respiratory failure with hypoxia: Code(s): J96.01 - Acute respiratory failure with hypoxia Status: Acute Assessment and Plan: Will continue current plan of care and treatment. Will continue diuresis. Oxygen as needed. (2) NSTEMI (non-ST elevated myocardial infarction): Code(s): I21.4 - Non-ST elevation (NSTEMI) myocardial infarction Status: Acute Assessment and Plan: Cardiology consult noted. Will continue current plan of care and treatment. Monitor labs. (3) Pulmonary edema: Qualifiers: Chronicity: acute Qualified Code(s): J81.0 - Acute pulmonary edema Code(s): J81.1 - Chronic pulmonary edema Status: Acute Assessment and Plan: Patient is feeling much better. Will continue with diuresis. (4) Diabetes mellitus with hyperglycemia: Qualifiers: Diabetes mellitus type: type 2 Diabetes mellitus care home insulin use: without care home use Qualified Code(s): E11.65 - Type 2 diabetes mellitus with hyperglycemia Code(s): E11.65 - Type 2 diabetes mellitus with hyperglycemia Status: Acute Assessment and Plan: Stable on meds. Additional Plan # non ST-elevation [place] on heparin drip on heparin drip aspirin cardiology started on Plavix Mabel serial troponins with upward trend of troponin. Further workup per Cardiology of note he was recently status post CABG by Dr. Armendariz at [facility]. # Hypoxic respiratory failure: Due to pulmonary edema/congestive heart failure # acute systolic congestive heart failure: IV diuresis with Lasix 40 mg b.i.d. with improvement #Diabetes mellitus type 2 with significant hyperglycemia in the ER . hemoglobin A1c came back at 7% will continue with SSI significant hyperglycemia likely related to stress History of coronary artery disease status post CABG on 05/06/2020 # Ischemic cardiomyopathy on LifeVest EF 30-35% # Right bundle branch block # CVA 1995 # Paroxysmal atrial fibrillation postoperative # Carotid artery stenosis status post right CEA 1995 # Hypertension # Hyperlipidemia # Gout # Former smoker # Nephrolithiasis # Osteoarthritis # DVT prophylaxis: Heparin drip left heart catheterization planned on 08/12/[address] him on apnea link tonight to assess for sleep apnea Subjective Date/time seen: 08/11/20 08:47 Interval history: 08/11/20 Patient was seen during the morning rounds today. Patient is feeling slightly better. Decreased shortness of breath. No chest pain. No abdominal pain, no nausea, no vomiting. Mood stable. Review of Systems Review of Systems: All systems reviewed & are unremarkable except as noted in HPI and below Exam Narrative: Exam Narrative: General: No acute distress, well-developed well-nourished HEENT: Cataracts noted bilaterally, no conjunctival pallor, no thyromegaly, mucous membranes are moist, fair dentition Respiratory: Air entry is much better. Very few rales at the bases. Cardiovascular: Regular rate, regular rhythm, 2+ bilateral radial pedal pulses Gastrointestinal: Soft, nontender, nondistended, positive bowel sounds Skin: No jaundice, tanned Musculoskeletal: No clubbing, cyanosis or edema Neurological: Alert and oriented, speech is clear, no facial asymmetry, no localizing neurologic deficits noted on limited exam Psychiatric: Appropriate mood and affect, pleasant and cooperative : Deferred Hematologic/lymphatic: No petechiae, no bruising, no lymphadenopathy Objective Data Vital Signs Vital Signs: Vital Signs - 24 hr 08/10/20 09:52 08/10/20 11:21 08/10/20 12:00 Temperature 36.4 C Pulse Rate 69 69 Respiratory Rate 18 Blood Pressure 125/81 Pulse Oximetry 95 95 08/10/20 14:00 08/10/20 16:00 08/10/20 17:49 Temperature 36.4 C Pulse Rate 65 69 65 Respiratory Rate 18 Blood Pressure 138/84 Pulse Oximetry
--- NOTE | 2020-08-11 09:27 | PC.NURSE ---
Cardiopulmonary Rehab Services flyer was given to patient in the cardiac admission folder.
--- NOTE | 2020-08-11 11:43 | PM.PNCARD ---
Progress Note: A&P Assessment and Plan (1) NSTEMI (non-ST elevated myocardial infarction): Code(s): I21.4 - Non-ST elevation (NSTEMI) myocardial infarction Status: Acute Assessment and Plan: 79-year-old man with h/o CAD s/p CABG ([facility], 05/06/20, 3 v., RODRIGUEZ to mild LAD, reversed saphenous vein graft to diagonal 1, reversed saphenous vein graft to abuse marginal 1), s/p NSTEMI (05/04/20), ischemic cardiomyopathy (wearing Life Vest), CVA (1995), paroxysmal atrial fibrillation (after CABG), RBBB, carotid artery stenosis (left ICA occluded, s/p R CEA 1995), hypertension, diabetes mellitus, hyperlipidemia, gout, COPD, moderate pulmonary HTN, former tobacco dependence (quit 05/06/20, 20 years), nephrolithiasis, osteoarthritis, who is seen in cardiac consultation for chief complaint of dyspnea, with non ST elevation myocardial infarction. -Patient denied chest pain on presentation or at present. -EKG demonstrated sinus tachycardia, heart rate 74-100 beats per minute, left bundle branch block (old, also noted on EKGs 07/18/20 and 08/01/2020, negative for S[place] acute CO criteria in setting of LBBB). -peak troponin I of 14.2. Initial troponin I was 0.098, then 3.98, then 8.48, then 11.0 (08/10/2020 at 6:44 a.m.), then 13.6, then 14.2. - He also had non ST elevation myocardial infarction 08/02/2020 although he left AMA from [facility]. He was in the [facility] with dyspnea 08/02/2020 but left AMA after improving with Lasix initially, with peak troponin I 1.25 on 08/02/2020 during that prior presentation, before additional troponin I could be assessed, and he did not follow up in the cardiology clinic subsequently. - he received aspirin 325 mg, then continued on aspirin 81 mg daily. - began loading dose of clopidogrel 300 mg daily, then 75 mg daily. - began intravenous heparin for 48 hours until left heart catheterization, scheduled for 08/12/[address] Ruiz at 2:00 p.m. (pending clinical lab scientist availability). - Resumed his metoprolol succinate 75 mg daily. - continue lisinopril 20 mg daily. - Continue high-intensity statin therapy with rosuvastatin 20 mg qHS. - his prior cardiac catheterization in April 2020 demonstrated very heavily calcified left main with 90% stenosis involving most of the body of the left main and LAD medium size artery showed proximal calcified 90%. - given significant troponin elevation up to 14.2 this admission, acute on chronic congestive heart failure, with recurrent CO also on 08/02/2020, he needs left heart catheterization for definitive re-evaluation of coronary artery disease in the setting of his underlying severe coronary artery disease and recent bypass. Patient agreeable to repeat left heart catheterization after discussion of risks and benefits. -Case discussed with interventionalist Dr. Kevin Collins on 08/10/2020 with plans for continued maximal medical therapy initially to include intravenous heparin and left heart catheterization on 08/12/[address] Ruiz at 2pm. (-Dr. Jarrell was initially notified of CO at 0800 on 08/10/20 by nurse phone call to the exchange forwarded by Dr. Duncan.) (2) CHF exacerbation: Code(s): I50.9 - Heart failure, unspecified Status: Acute Assessment and Plan: -He has acute on chronic heart failure with reduced ejection fraction, with ischemic cardiomyopathy (wearing Lifevest), in setting of recurrent non ST elevation myocardial infarction and with missed dose of metoprolol succinate on the morning of the day of presentation (with moderate hypertension and tachycardia initially). -He also had non ST elevation myocardial infarction 08/02/2020 although he left AMA from [facility]. He was in the [facility] with dyspnea 08/02/2020 but left AMA after improving with Lasix initially, with peak troponin I 1.25 on 08/02/2020 during that prior presentation, before additional troponin I could be assessed, and he did not follow up i
[2020-08-11 12:20] LABS: Glucose Point of Care 185 mg/dl (65-105)
[2020-08-11] MEDS: HEPARIN SODIUM 5,000 UNITS/ML VIAL 3500 UNITS IV PUSH (12:32)
[2020-08-11 17:19] LABS: Glucose Point of Care 96 mg/dl (65-105)
[2020-08-11 17:20] LABS: Anion Gap 9 mmol/L (8-16); Blood Urea Nitrogen 24 mg/dL (9-20); Calcium 9.3 mg/dL (8.4-10.2); Carbon Dioxide 33 mmol/L (22-30); Chloride 96 mmol/L (98-107); Estimated CRCL calculation 53 ml/min; Estimated Glomerular Filt Rate > 60; Glucose 94 mg/dL (75-110); INR 1.1; Potassium 3.5 mmol/L (3.4-5.0); Prothrombin Time 14.9 Seconds (11.1-14.7); Sodium 138 mmol/L (137-145)
[2020-08-11 17:22] LABS: Partial Thromboplastin Time 88.8 SECONDS (22.3-36.8)
[2020-08-11] MEDS: POTASSIUM CHLORIDE 20 MEQ TABLET PO (20:26)
[2020-08-11 20:47] LABS: Glucose Point of Care 120 mg/dl (65-105)
[2020-08-11 23:36] LABS: Partial Thromboplastin Time 82.2 SECONDS (22.3-36.8)
[2020-08-12] VITALS (26 sets, daily range): BP systolic 104–157; BP diastolic 55–90; PULSE 54–97; RESP 12–91; TEMP 36.2–36.6; O2SAT 90–100
[2020-08-12 06:54] LABS: Basophils Percent Auto 0.5 % (0.2-1.2); Eosinophils Absolute Auto 0.1 K/mm3 (0-0.3); Hematocrit 44.5 % (42.0-52.0); Hemoglobin 14.5 g/dL (14.0-18.0); Immature Granulocyte Absolute 0.06 K/mm3 (0.00-0.031); Immature Granulocyte Percent A 0.7 % (0-0.5); Lymphocytes Absolute Auto 1.64 K/mm3 (0.9-3.2); Lymphocytes Percent Auto 18.7 % (18.3-44.2); Mean Corpuscular HGB Conc 32.6 g/dl (32-36); Mean Corpuscular Hemoglobin 29.1 pg (26-34); Mean Corpuscular Volume 89.4 fl (80-100); Monocytes Percent Auto 11.6 % (2.6-8.5); Neutrophils Absolute Auto 5.9 K/mm3 (1.3-6.7); Neutrophils Percent Auto 67.5 % (45.5-73.1); Platelet Count Result 325 k/mm3 (150-375); Red Blood Count 4.98 M/mm3 (4.6-6.20); Red Cell Distribution Width 13.3 % (11.5-14.5); White Blood Count 8.8 K/mm3 (4.5-10.0)
--- NOTE | 2020-08-12 07:00 | ECG_ITS ---
Measurements Intervals [place] Rate: 58 P: -1 VA: 168 QRS: -47 QRSD: 201 T: 132 QT: 568 QTc: 561 Interpretive Statements SINUS BRADYCARDIA POSSIBLE LEFT ATRIAL ENLARGEMENT LEFT AXIS DEVIATION LEFT BUNDLE BRANCH BLOCK ABNORMAL ECG Electronically Signed On 08-12-2020 12:22:19 CDT by John Zurita D.O.
[2020-08-12 07:08] LABS: Anion Gap 8 mmol/L (8-16); Blood Urea Nitrogen 21 mg/dL (9-20); Calcium 9.1 mg/dL (8.4-10.2); Carbon Dioxide 33 mmol/L (22-30); Chloride 97 mmol/L (98-107); Estimated CRCL calculation 53 ml/min; Estimated Glomerular Filt Rate > 60; Glucose 127 mg/dL (75-110); Magnesium 2.1 mg/dL (1.6-2.3); Potassium 3.4 mmol/L (3.4-5.0); Sodium 138 mmol/L (137-145)
[2020-08-12 07:10] LABS: Partial Thromboplastin Time 73.4 SECONDS (22.3-36.8)
[2020-08-12 08:29] LABS: Glucose Point of Care 127 mg/dl (65-105)
--- NOTE | 2020-08-12 08:38 | PM.PNCARD ---
Progress Note: A&P Assessment and Plan (1) NSTEMI (non-ST elevated myocardial infarction): Code(s): I21.4 - Non-ST elevation (NSTEMI) myocardial infarction Status: Acute Assessment and Plan: 79-y/o male with h/o CAD s/p CABG (05/06/20, RODRIGUEZ to mild LAD, SVG to D1, SVG to OM1), ischemic cardiomyopathy (wearing Life Vest), paroxysmal atrial fibrillation (after CABG), CVA s/p R CEA 1995), HTN, DM, HLD, ex smoker (quit at timeof CABG), COPD i who is seen in cardiac consultation for chief complaint of dyspnea, with non ST elevation myocardial infarction. Trop peaked at 14 No chest pain 2D echo with further decline in LV function from EF 30-35% at time of CABG to 15-20% now NSTMI and decline in LV function are possibly from early graft occlusion. Plan for [facility] today to evaluate [place] coronaries and grafts Continue IV heparin till time of cath Continue ASA. Plavix was started this admission after loading dose of 300 Continue Metoprolol and lisinopril .Continue rosuvastatin 20 mg qHS. ) (2) CHF exacerbation: Code(s): I50.9 - Heart failure, unspecified Status: Acute Assessment and Plan: He is better compensated from CHF standpoint with IV lasix. Will hold lasix this am in anticipation for cardiac cath and contrast load later today. Creatinine stable. Assess LVEDP with cath to guide further diuretic management Continue BB/BERNARD Continue LifeVest (3) S/P CABG (coronary artery bypass graft): Onset Date: 05/06/20 Code(s): Z95.1 - Presence of aortocoronary bypass graft Status: Acute Assessment and Plan: s/p CABG X3 in April with RODRIGUEZ to LAD, SVG to D1 SVG to OM1 Continue his outpatient amiodarone 200 mg daily for postoperative atrial fibrillation (now in sinus rhythm) Continue aspirin and statin. Initiated Plavix this amdission given his recurrent NSTEMI. Subjective Date/time seen: 08/12/20 08:38 He feels much better compared to admission. Able to lay flat with no dyspnea. Denies chest pain. Review of Systems Review of Systems: All systems reviewed & are unremarkable except as noted in HPI and below Exam Narrative: Exam Narrative: General: No acute distress, well-developed well-nourished HEENT: Cataracts noted bilaterally, no conjunctival pallor, no thyromegaly, mucous membranes are moist, fair dentition Respiratory: decreased breath sounds at the bases, no wheezing or crackles, no increased work of breathing Cardiovascular: no heave. Regular rate, regular rhythm, Normal S1, S2, with 1/6 intensity systolic murmur, 2+ bilateral radial and pedal pulses. no jugular venous distention. Extremities: Trace bilateral pedal edema. Gastrointestinal: Soft, nontender, nondistended, positive bowel sounds Skin: No jaundice, tanned Musculoskeletal: No clubbing, cyanosis or edema Neurological: Alert and oriented, speech is clear, no facial asymmetry, no localizing neurologic deficits noted on limited exam Psychiatric: Appropriate mood and affect, pleasant and cooperative : Deferred Hematologic/lymphatic: No petechiae, no bruising, no lymphadenopathy Objective Data Vital Signs Vital Signs: Vital Signs - 24 hr 08/11/20 10:00 08/11/20 12:00 08/11/20 13:58 Temperature 36.2 C L Pulse Rate 61 60 63 Respiratory Rate 18 Blood Pressure 115/56 L Pulse Oximetry 96 08/11/20 15:56 08/11/20 16:00 08/11/20 17:36 Temperature 36.5 C Pulse Rate 58 L 61 62 Respiratory Rate 18 Blood Pressure 122/69 Pulse Oximetry 98 98 08/11/20 20:00 08/11/20 22:00 08/11/20 23:45 Temperature 36.3 C L 36.4 C Pulse Rate 62 61 61 Respiratory Rate 16 16 Blood Pressure 127/76 122/64 Pulse Oximetry 99 100 08/12/20 00:00 08/12/20 02:00 08/12/20 04:00 Temperature 36.3 C L Pulse Rate 61 54 L 61 Respiratory Rate 16 16 Blood Pressure 130/76 Pulse Oximetry 100 98 08/12/20 06:00 Temperature Pulse Rate 57 L Respiratory Rate Blood Pressure Pulse
[2020-08-12] MEDS: allopurinoL 300 MG TABLET PO (08:57)
[2020-08-12] MEDS: ASPIRIN 81 MG ENTERIC TABLET PO (08:57)
[2020-08-12] MEDS: METOPROLOL SUCCINATE EXT REL 25 MG TABCR 75 MG PO (08:57)
[2020-08-12] MEDS: AMIODARONE HCL 200 MG TABLET PO (08:57)
[2020-08-12] MEDS: lisinopriL 20 MG TABLET PO (08:57)
[2020-08-12] MEDS: ROSUVASTATIN 10 MG TABLET 20 MG PO (08:57)
[2020-08-12] MEDS: CLOPIDOGREL BISULFATE 75 MG TABLET PO (08:57)
--- NOTE | 2020-08-12 11:36 | PM.IMPN ---
Progress Note: A&P Assessment and Plan (1) Acute respiratory failure with hypoxia: Code(s): J96.01 - Acute respiratory failure with hypoxia Status: Acute Assessment and Plan: Will continue current plan of care and treatment. Will continue diuresis. Oxygen as needed. Workup for obstructive sleep apnea as an outpatient. (2) NSTEMI (non-ST elevated myocardial infarction): Code(s): I21.4 - Non-ST elevation (NSTEMI) myocardial infarction Status: Acute Assessment and Plan: Cardiology consult noted. Will continue current plan of care and treatment. Monitor labs. Scheduled for Cath today. (3) Pulmonary edema: Qualifiers: Chronicity: acute Qualified Code(s): J81.0 - Acute pulmonary edema Code(s): J81.1 - Chronic pulmonary edema Status: Acute Assessment and Plan: Patient is feeling much better. Will continue with diuresis. (4) Diabetes mellitus with hyperglycemia: Qualifiers: Diabetes mellitus type: type 2 Diabetes mellitus long goods drier insulin use: without intermediate use Qualified Code(s): E11.65 - Type 2 diabetes mellitus with hyperglycemia Code(s): E11.65 - Type 2 diabetes mellitus with hyperglycemia Status: Acute Assessment and Plan: Stable on meds. Additional Plan # non ST-elevation [place] on heparin drip on heparin drip aspirin cardiology started on Plavix Mabel serial troponins with upward trend of troponin. Further workup per Cardiology of note he was recently status post CABG by Dr. Armendariz at [facility]. # Hypoxic respiratory failure: Due to pulmonary edema/congestive heart failure # acute systolic congestive heart failure: IV diuresis with Lasix 40 mg b.i.d. with improvement #Diabetes mellitus type 2 with significant hyperglycemia in the ER . hemoglobin A1c came back at 7% will continue with SSI significant hyperglycemia likely related to stress History of coronary artery disease status post CABG on 05/06/2020 # Ischemic cardiomyopathy on LifeVest EF 30-35% # Right bundle branch block # CVA 1995 # Paroxysmal atrial fibrillation postoperative # Carotid artery stenosis status post right CEA 1995 # Hypertension # Hyperlipidemia # Gout # Former smoker # Nephrolithiasis # Osteoarthritis # DVT prophylaxis: Heparin drip left heart catheterization planned on 08/12/[address] him on apnea link [email or web address] to assess for sleep apnea 08/12/20: Scheduled for cardiac catheterization today. Will refer to outpatient pulmonary for obstructive sleep apnea workup after discharge. Subjective Date/time seen: 08/12/20 11:36 Patient was seen during morning rounds today. Patient denies any shortness of breath or chest pain. No nausea, no vomiting, no abdominal pain. Mood stable. Review of Systems Review of Systems: All systems reviewed & are unremarkable except as noted in HPI and below Exam Narrative: Exam Narrative: General: No acute distress, well-developed well-nourished HEENT: Cataracts noted bilaterally, no conjunctival pallor, no thyromegaly, mucous membranes are moist, fair dentition Respiratory: Air entry is much better. Very few rales at the bases. Cardiovascular: Regular rate, regular rhythm, 2+ bilateral radial pedal pulses Gastrointestinal: Soft, nontender, nondistended, positive bowel sounds Skin: No jaundice, tanned Musculoskeletal: No clubbing, cyanosis or edema Neurological: Alert and oriented, speech is clear, no facial asymmetry, no localizing neurologic deficits noted on limited exam Psychiatric: Appropriate mood and affect, pleasant and cooperative : Deferred Hematologic/lymphatic: No petechiae, no bruising, no lymphadenopathy Objective Data Vital Signs Vital Signs: Vital Signs - 24 hr 08/11/20 12:00 08/11/20 13:58 08/11/20 15:56 Temperature 36.2 C L 36.5 C Pulse Rate 60 63 58 L Respiratory Rate 18 18 Blood Pressure 115/56 L 122/6
[2020-08-12 14:43] LABS: Glucose Point of Care 119 mg/dl (65-105)
--- NOTE | 2020-08-12 14:43 | WPDMODSED ---
Moderate Sedation Note-Pt Data Patient Data Allergies Allergy/AdvReac Type Severity Reaction Status Date / Time Sulfa (Sulfonamide Allergy Unknown Rash Verified 07/18/20 02:00 Antibiotics) Home Medications Medication Instructions Recorded Confirmed Type aspirin 325 mg tablet,delayed 325 mg PO QPM 03/07/19 08/09/20 History release rosuvastatin 20 mg PO DAILY 05/03/20 08/09/20 History amiodarone 200 mg tablet 200 mg PO DAILY 05/22/20 08/09/20 History metoprolol succinate 50 mg 75 mg PO DAILY tablet 05/22/20 08/09/20 History tablet,extended release 24 hr lisinopril 20 mg tablet 20 mg PO DAILY #30 tablet 07/05/20 08/09/20 Rx dapagliflozin [Farxiga] 10 mg PO DAILY 07/18/20 08/09/20 History furosemide 20 mg PO DAILY 08/02/20 08/09/20 History allopurinol 300 mg tablet 300 mg PO DAILY #90 tablet 08/08/20 08/09/20 Rx Current Medications: Active Medications Acetaminophen (Acetaminophen 325 Mg Tablet) 650 mg PO Q4H PRN PRN Reason: Mild Pain (1-3) or Fever Allopurinol (Allopurinol 300 Mg Tablet) 300 mg PO DAILY@0800 [facility] Last Admin: 08/12/20 08:57 Dose: 300 mg Documented by: Amiodarone HCl (Amiodarone Hcl 200 Mg Tablet) 200 mg PO DAILY@0800 [facility] Last Admin: 08/12/20 08:57 Dose: 200 mg Documented by: Aspirin (Aspirin 81 Mg Enteric Tablet) 81 mg PO DAILY [facility] Last Admin: 08/12/20 08:57 Dose: 81 mg Documented by: Clopidogrel Bisulfate (Clopidogrel Bisulfate 75 Mg Tablet) 75 mg PO QAM [facility] Last Admin: 08/12/20 08:57 Dose: 75 mg Documented by: Dextrose (Dextrose 50% 25 Gm/50 Ml Syringe) 12.5 gm IV PUSH PRN PRN; Protocol PRN Reason: Hypoglycemia Furosemide (Furosemide Inj 40 Mg/4 Ml Vial) 40 mg IV PUSH Q12HR [facility] Last Admin: 08/11/20 20:25 Dose: 40 mg Documented by: Glucagon (Glucagon For Inj 1 Mg Vial) 1 mg IM PRN PRN; Protocol PRN Reason: Hypoglycemia Glucose (Glucose Oral Gel 15 Gm Of Glucse In 37.5 Gm Tube) 15 gm PO PRN PRN; Protocol PRN Reason: Hypoglycemia Heparin Sodium (Porcine) (Heparin Sodium 5,000 Units/Ml Vial) 4,000 units IV PUSH PRN PRN PRN Reason: aPTT less than 55 seconds Heparin Sodium (Porcine) (Heparin Sodium 5,000 Units/Ml Vial) 3,500 units IV PUSH PRN PRN PRN Reason: aPTT 55 - 70 seconds Last Admin: 08/11/20 12:32 Dose: 3,500 units Documented by: Heparin Sodium/Dextrose (Heparin Sodium/D5w 100 Units/Ml) 25,000 units in 250 mls @ 12 mls/hr IV CONT .[id number] [facility]; Protocol Last Titration: 08/11/20 23:29 Dose: 1,200 units/hr, 12 mls/hr Documented by: Dextrose (Dextrose 5% 1,000 Ml) 1,000 mls @ 100 mls/hr IVPB PRN PRN; Protocol PRN Reason: Hypoglycemia Insulin Aspart (Insulin Aspart (*Bkc) 100 Units/Ml) 3 - 6 units SUB-Q TIDWM [facility]; Protocol Last Admin: 08/12/20 12:42 Dose: Not Given Documented by: Lisinopril (Lisinopril 20 Mg Tablet) 20 mg PO DAILY [facility] Last Admin: 08/12/20 08:57 Dose: 20 mg Documented by: Metoprolol Succinate (Metoprolol Succinate Ext Rel 25 Mg Tabcr) 75 mg PO DAILY [facility] Last Admin: 08/12/20 08:57 Dose: 75 mg Documented by: Ondansetron HCl (Ondansetron Inj 4 Mg/2 Ml Vial) 4 mg IV PUSH Q4H PRN PRN Reason: Nausea Rosuvastatin Calcium (Rosuvastatin 10 Mg Tablet) 20 mg PO DAILY [facility] Last Admin: 08/12/20 08:57 Dose: 20 mg Documented by: Sedation/Anesthesia: No previous sedation/anesthesia problems (including family history). [facility] Past Medical History Medical History Bilateral carotid artery disease With complete occlusion of the left carotid, right carotid endarterectomy 2004 CAD (coronary artery disease) COPD (chronic obstructive pulmonary disease) Diabetes mellitus Essential (primary) hypertension Gout, unspecified Hypertension with heart disease Ischemic cardiomyopathy With life vest in place Kidney stones Mixed hyperlipidemia Spondylosis of lumbar region without myelopathy or radiculopathy Tobacco dependence He chewed tobacco from time he was a teenager up until use 58 y
--- NOTE | 2020-08-12 15:29 | WPDCARDPROC ---
Cardiac Cath Procedure Note Date of procedure:: 08/12/20 Performing physician:: Osman Ruiz MD PROCEDURE: 1. LEFT HEART CATHETERIZATION, SELECTIVE CORONARY ANGIOGRAM. 2. RODRIGUEZ and venous grafts angiogram 3. Aortic root angiogram 3. CONSCIOUS SEDATION. CLIENT DELIVERY MANAGER: DR. OSMAN RUIZ COMPLICATIONS: NONE. SEDATION: CONSCIOUS SEDATION, LOCAL ANESTHESIA, USING 1 MG OF VERSED SAID, 25 MCG OF FENTANYL, AND USING 1% LIDOCAINE FOR LOCAL ANESTHESIA. HISTORY: 79 years old man with CAD s/p CABG came with CHF and had elevated trop, was brought to labor and delivery nurse for evaluation of his CAD. TECHNIQUE: AFTER INFORMED CONSENT WAS OBTAINED FROM PATIENT, WAS BROUGHT TO THE VEST FRONT PRESSER, PUT IN THE VEST FRONT PRESSER TABLE, PREPPED AND DRAPED IN USUAL STERILE FASHION. FIVE BANGLADESHI SHEATH WAS INSERTED INTO THE RIGHT COMMON FEMORAL ARTERY, THROUGH THE SHEATH 5 BANGLADESHI JL4 CATHETER INSERTED, ADVANCED TO THE LEFT CORONARY ARTERY, LEFT CORONARY ARTERY ANGIOGRAM WAS OBTAINED. THE CATHETER WAS EXCHANGED OVER GUIDEWIRE INTO A 5 BANGLADESHI JR4 CATHETER, ADVANCED TO THE RIGHT CORONARY ARTERY, RIGHT CORONARY ARTERY ANGIOGRAM was attempted, but the vessel was not visualized. SVG to Diagonal visualized, the RODRIGUEZ angiogram was done THE CATHETER THEN WAS EXCHANGED OVER GUIDEWIRE INTO THIS 5 BANGLADESHI PIGTAIL CATHETER, ADVANCED TO LEFT VENTRICLE, LEFT VENTRICULAR pressure was OBTAINED. THE CATHETER THEN WAS PULLED, Aortic root angiogram was done THE SHEATH WAS PULLED APPLYING MANUAL PRESSURE FOR ARTERIAL HEMOSTASIS. PATIENT TOLERATED THE PROCEDURE NO COMPLICATION, TAKEN FROM THE VEST FRONT PRESSER TO HIS ROOM IN STABLE CONDITION STABLE VITAL SIGNS. HEMODYNAMICS: AORTIC PRESSURE 114/60 . LV PRESSURE 114/04 WITH LVEDP OF 12 MMHG ANGIOGRAPHIC FINDINGS: LEFT MAIN: Totally occluded at the Proximal segment LAD MEDIUM SIZE ARTERY: not seen the the [place] angiogram, but seen with RODRIGUEZ angiogram with proximal 75 % stenosis, and patent distal segment LEFT CIRCUMFLEX ARTEry: not seen from th [place] angiogram due to occluded LM RCA: small not well seen RODRIGUEZ to LAD: patent with mild diffuse distal dispense SVG to Diagonal: Patent with 90% distal anastomoses disease SVG to OM not see, likely occluded Aortic root angiogram normal size, no SVG to OM or RCA seen SUMMARY: Severe [place] CAD Patent RODRIGUEZ to LAD RECOMMENDATION: [facility] T[facility]AT[facility], will consider PCI to SVG to diagonal branch
[2020-08-12 17:54] LABS: Glucose Point of Care 117 mg/dl (65-105)
[2020-08-12 20:51] LABS: Glucose Point of Care 217 mg/dl (65-105)
[2020-08-13] VITALS (10 sets, daily range): BP systolic 136–141; BP diastolic 71–76; PULSE 56–65; RESP 16–18; TEMP 36.2; O2SAT 97–98
[2020-08-13 08:20] LABS: Glucose Point of Care 118 mg/dl (65-105)
[2020-08-13] MEDS: lisinopriL 20 MG TABLET PO (08:41)
[2020-08-13] MEDS: allopurinoL 300 MG TABLET PO (08:41)
[2020-08-13] MEDS: ASPIRIN 81 MG ENTERIC TABLET PO (08:41)
[2020-08-13] MEDS: CLOPIDOGREL BISULFATE 75 MG TABLET PO (08:41)
[2020-08-13] MEDS: ROSUVASTATIN 10 MG TABLET 20 MG PO (08:41)
[2020-08-13] MEDS: AMIODARONE HCL 200 MG TABLET PO (08:41)
[2020-08-13] MEDS: METOPROLOL SUCCINATE EXT REL 25 MG TABCR 75 MG PO (08:41)
[2020-08-13 12:32] LABS: Glucose Point of Care 112 mg/dl (65-105)
--- NOTE | 2020-08-13 14:48 | PM.PNCARD ---
Progress Note: A&P Assessment and Plan (1) NSTEMI (non-ST elevated myocardial infarction): Code(s): I21.4 - Non-ST elevation (NSTEMI) myocardial infarction Status: Acute Assessment and Plan: 79-y/o male with h/o CAD s/p CABG (05/06/20, RODRIGUEZ to mild LAD, SVG to D1, SVG to OM1), ischemic cardiomyopathy (wearing Life Vest), paroxysmal atrial fibrillation (after CABG), CVA s/p R CEA 1995), HTN, DM, HLD, ex smoker (quit at timeof CABG), COPD i who is seen in cardiac consultation for chief complaint of dyspnea, with non ST elevation myocardial infarction. Trop peaked at 14 No chest pain 2D echo with further decline in LV function from EF 30-35% at time of CABG to 15-20% now Cardiac cath revealed patent RODRIGUEZ however SVG to OM is occluded and SVG to D1 has lesion at anastomosis site. Plan for possible intervention of SVG lesion at [facility]. That to be arranged in outpatient settings He is stable for discharge from cardiac standpoint Continue ASA. Plavix was started this admission Continue Metoprolol and lisinopril Continue rosuvastatin 20 mg qHS. Continue LifeVest ) (2) CHF exacerbation: Code(s): I50.9 - Heart failure, unspecified Status: Acute Assessment and Plan: He is better compensated from CHF standpoint with IV lasix. Would discharge on lasix 40 mg daily Continue BB/BERNARD Continue LifeVest (3) S/P CABG (coronary artery bypass graft): Onset Date: 05/06/20 Code(s): Z95.1 - Presence of aortocoronary bypass graft Status: Acute Assessment and Plan: s/p CABG X3 in April with RODRIGUEZ to LAD, SVG to D1 SVG to OM1 Continue his outpatient amiodarone 200 mg daily for postoperative atrial fibrillation (now in sinus rhythm) Continue aspirin and statin. Initiated Plavix this admission given his recurrent NSTEMI. Subjective Date/time seen: 08/13/20 14:48 He continues to deny any chest pain. His breathing is back to normal. He would like to go home today if possible. Review of Systems Review of Systems: All systems reviewed & are unremarkable except as noted in HPI and below Exam Narrative: Exam Narrative: General: No acute distress, well-developed well-nourished HEENT: Cataracts noted bilaterally, no conjunctival pallor, no thyromegaly, mucous membranes are moist, fair dentition Respiratory: decreased breath sounds at the bases, no wheezing or crackles, no increased work of breathing Cardiovascular: no heave. Regular rate, regular rhythm, Normal S1, S2, with 1/6 intensity systolic murmur, 2+ bilateral radial and pedal pulses. no jugular venous distention. Extremities: Trace bilateral pedal edema. Gastrointestinal: Soft, nontender, nondistended, positive bowel sounds Skin: No jaundice, tanned Musculoskeletal: No clubbing, cyanosis or edema Neurological: Alert and oriented, speech is clear, no facial asymmetry, no localizing neurologic deficits noted on limited exam Psychiatric: Appropriate mood and affect, pleasant and cooperative : Deferred Hematologic/lymphatic: No petechiae, no bruising, no lymphadenopathy Objective Data Vital Signs Vital Signs: Vital Signs - 24 hr 08/12/20 15:50 08/12/20 16:05 08/12/20 16:15 Temperature 36.5 C Pulse Rate 62 63 59 L Pulse Rate [Bilateral Pedal (Dorsalis Pedis) Palpation] 62 62 60 Pulse Rate [Right Pedal (Dorsalis Pedis) Palpation] 62 62 60 Respiratory Rate 14 14 12 Blood Pressure 147/84 H 150/90 H 148/82 H Pulse Oximetry 95 93 93 08/12/20 16:25 08/12/20 16:30 08/12/20 16:40 Temperature Pulse Rate 59 L 63 63 Pulse Rate [Bilateral Pedal (Dorsalis Pedis) Palpation] 60 63 63 Pulse Rate [Right Pedal (Dorsalis Pedis) Palpation] 60 63 63 Respiratory Rate 91 H 63 H 15 Blood Pressure 149/79 H 157/68 H 144/83 H Pulse Oximetry 93 97 93 08/12/20 16:50 08/12/20 17:00 08/12/20 17:15 Temperature Pulse Rate 59 L 59 L 63 Pulse Rate [Bilateral Pedal (Dorsalis Pedis) Palpation] 59 L 59 L 59 L Pulse Rate [Rig
--- NOTE | 2020-08-13 15:22 | PM.DS ---
DS: Admitting Diagnosis Admitting Diagnosis Admitting Diagnosis: CAD DS: Discharge Diagnosis Discharge Diagnosis (1) CAD (coronary artery disease): Code(s): I25.10 - Atherosclerotic heart disease of [place] coronary artery without angina pectoris Status: Acute (2) S/P CABG (coronary artery bypass graft): Onset Date: 05/06/20 Code(s): Z95.1 - Presence of aortocoronary bypass graft Status: Acute DS: Summary Hospital Course Hospital Course: Chief Complaint: Shortness of breath Narrative: 79-year-old with past medical history of essential hypertension, hyperlipidemia, carotid artery stenosis, CVA, coronary artery disease status post three-vessel CABG in severe ischemic cardiomyopathy who presented to the ER with sudden onset of shortness of breath. Patient had cardiac catheterization during this hospitalization, that revealed significant coronary heart disease, cardiology recommended optimizing medical management at discharge patient home to follow up with cardiology as an outpatient, with plan to repeat the cardiac catheterization with PCI at [facility] in few days, case was discussed with , patient is agreeable with the plan of discharge, and he is resting comfortably denies any active complaint, patient in stable condition for discharge. Time Spent with Patient Time attestation: Total time spent providing and/or coordinating discharge services: Time spent: Greater than 30 minutes Exam Const: General: alert; No no acute distress HENMT: Head: no hematomas Ears: hearing grossly normal bilaterally Mouth: Yes Normal oral and palatal mucosa present Eyes: General: appearance normal, both eyes and all related structures Neck: Neck: normal visual inspection Chest: Chest palpation & inspection: normal inspection of the chest Resp: Effort & Inspection: normal respiratory effort Cardio: Jugular venous distension: no JVD Rate: regular rate GI: Inspection: normal to inspection DS: Data Data Completed and Pending Labs on day of discharge: Labs from last 24 hours 08/13/20 08/13/20 08/12/20 12:04 08:07 20:46 POC Capillary Glucose 112 H 118 H 217 H 08/12/20 17:40 POC Capillary Glucose 117 H Discharge Plan Discharge Consulting providers: Osman Ruiz Discharging Clinician: Alexi Bruce Patient Disposition: Home, Self-Care Activity: as tolerated Diet: heart healthy Patient Instructions: Antibiotic Form, Heart Failure (DC) Stand Alone Forms: General Discharge Information Follow-up/Referrals: Osman Ruiz MD [Physician] - 1 Week Kvng Mcclendon MD [Primary Care Provider] - 1 Week Discharge Medications: New metoprolol succinate [Toprol XL] 25 mg Tablet Extended Release 24 Hr 75 mg PO DAILY Qty: 30 RF: 0 clopidogrel 75 mg Tablet 75 mg PO QAM Qty: 30 RF: 0 Continued amiodarone 200 mg tablet 200 mg PO DAILY RF: 0 rosuvastatin 20 mg tablet 20 mg PO DAILY RF: 0 furosemide 20 mg tablet 20 mg PO DAILY RF: 0 aspirin [Aspir-Spring] 325 mg tablet,delayed release (DR/EC) 325 mg PO QPM RF: 0 lisinopril 20 mg tablet 20 mg PO DAILY Qty: 30 RF: 0 allopurinol 300 mg tablet 300 mg PO DAILY Qty: 90 RF: 2 Discontinued metoprolol succinate 50 mg tablet extended release 24 hr 75 mg PO DAILY RF: 0 Farxiga 10 mg tablet 10 mg PO DAILY RF: 0 Date of admission: 08/10/20 08:01 Primary Care Provider: Kvng Mcclendon Admitting Provider: Taylor Dill Attending physician on admission: Alexi Bruce Condition: Serious
--- NOTE | 2020-08-13 15:31 | P.DS_ITS ---
DS: Admitting Diagnosis Admitting Diagnosis Admitting Diagnosis: CAD DS: Discharge Diagnosis Discharge Diagnosis (1) Acute respiratory failure: Code(s): J96.00 - Acute respiratory failure, unspecified whether with hypoxia or hypercapnia Status: Acute (2) CHF exacerbation: Code(s): I50.9 - Heart failure, unspecified Status: Acute (3) CAD (coronary artery disease): Code(s): I25.10 - Atherosclerotic heart disease of [place] coronary artery without angina pectoris Status: Acute DS: Summary Hospital Course Reason for hospitalization: Shortness of breath Hospital Course: Please refer to previous discharge summary for more details, discharge medication include increase metoprolol to 75 mg daily, increase Lasix to 40 mg p.o. daily, adding Plavix 75 mg p.o. daily. Per cardiology recommendations Time Spent with Patient Time attestation: Total time spent providing and/or coordinating discharge services:40 mins Exam Const: General: alert; No no acute distress HENMT: Head: no hematomas Ears: hearing grossly normal bilaterally Mouth: Yes Normal oral and palatal mucosa present Eyes: General: appearance normal, both eyes and all related structures Neck: Neck: normal visual inspection Chest: Chest palpation & inspection: normal inspection of the chest Resp: Effort & Inspection: normal respiratory effort Cardio: Jugular venous distension: no JVD Rate: regular rate GI: Inspection: normal to inspection DS: Data Data Completed and Pending Labs on day of discharge: Labs from last 24 hours 08/13/20 08/13/20 08/12/20 12:04 08:07 20:46 POC Capillary Glucose 112 H 118 H 217 H 08/12/20 17:40 POC Capillary Glucose 117 H Discharge Plan Discharge Consulting providers: Osman Ruiz Discharging Clinician: Alexi Bruce Patient Disposition: Home, Self-Care Activity: as tolerated Diet: heart healthy Patient Instructions: Heart Failure (DC), Heart Catheterization (GEN) Stand Alone Forms: General Discharge Information Follow-up/Referrals: Osman Ruiz MD [Physician] - 1 Week Kvng Mcclendon MD [Primary Care Provider] - 1 Week Discharge Medications: New clopidogrel 75 mg Tablet 75 mg PO QAM Qty: 30 RF: 0 metoprolol succinate [Toprol XL] 25 mg Tablet Extended Release 24 Hr 75 mg PO DAILY Qty: 30 RF: 0 furosemide [Lasix] 40 mg tablet 40 mg PO DAILY Qty: 30 RF: 0 Continued amiodarone 200 mg tablet 200 mg PO DAILY RF: 0 rosuvastatin 20 mg tablet 20 mg PO DAILY RF: 0 aspirin [Aspir-Spring] 325 mg tablet,delayed release (DR/EC) 325 mg PO QPM RF: 0 lisinopril 20 mg tablet 20 mg PO DAILY Qty: 30 RF: 0 allopurinol 300 mg tablet 300 mg PO DAILY Qty: 90 RF: 2 Discontinued metoprolol succinate 50 mg tablet extended release 24 hr 75 mg PO DAILY RF: 0 Farxiga 10 mg tablet 10 mg PO DAILY RF: 0 furosemide 20 mg tablet 20 mg PO DAILY RF: 0 Date of admission: 08/10/20 08:01 Primary Care Provider: Kvng Mcclendon Admitting Provider: Taylor Dill Attending physician on admission: Alexi Bruce Condition: Serious
== END 2020-08-13 15:59 | disposition home or self-care (01) | DRG 280 ==
LOC: ANHED 20:52 → ANHIMU 22:50
PROVIDERS: Emergency Medicine; Internal Medicine; Internal Medicine Cardiovascular Disease; Specialist; Admitting Provider Internal Medicine; Emergency Provider Emergency Medicine; PCP Family Medicine; Visit Provider Internal Medicine
PROC: 4A023N7 Measurement of Cardiac Sampling and Pressure, Left Heart, Percutaneous Approach (ICD-10-PCS; CPT 93459; principal; 2020-08-12 14:30)
DX: I21.4 Non-ST elevation (NSTEMI) myocardial infarction (principal); J96.01 Acute respiratory failure with hypoxia; I50.23 Acute on chronic systolic (congestive) heart failure; I97.190 Other postprocedural cardiac functional disturbances following cardiac surgery; I11.0 Hypertensive heart disease with heart failure; I48.0 Paroxysmal atrial fibrillation; I25.2 Old myocardial infarction; I25.10 Atherosclerotic heart disease of native coronary artery without angina pectoris; J44.9 Chronic obstructive pulmonary disease, unspecified; I45.10 Unspecified right bundle-branch block; I25.5 Ischemic cardiomyopathy; G47.33 Obstructive sleep apnea (adult) (pediatric); E11.65 Type 2 diabetes mellitus with hyperglycemia; E78.2 Mixed hyperlipidemia; M19.90 Unspecified osteoarthritis, unspecified site; M10.9 Gout, unspecified; M47.896 Other spondylosis, lumbar region; Z87.891 Personal history of nicotine dependence; Z87.442 Personal history of urinary calculi; Z95.1 Presence of aortocoronary bypass graft; Z86.73 Personal history of transient ischemic attack (TIA), and cerebral infarction without residual deficits; Z90.49 Acquired absence of other specified parts of digestive tract
CPT/HCPCS: 36415; 71046; 80048; 80061; 82948; 83036; 83735; 83880; 84443; 84484; 85025; 85610; 85730; 93005; 93308; 93459; 94762; 96365; 96366; 96375; 99291; A9270; C1887; C1894; G0378; J1644; J1940; J2250; J3010; J7040

== ENCOUNTER 2020-08-24 01:48 | Observation (INO) | payer MEDICARE, SELFPAY ==
[2020-08-24] VITALS (18 sets, daily range): BP systolic 123–146; BP diastolic 64–93; PULSE 70–105; RESP 20–31; TEMP 36.3–36.6; O2SAT 91–100; BMI 28.6
--- NOTE | ~2020-08-24 | XR_ITS ---
EXAMINATION: XR chest 2V DATE: 08/24/2020 02:54 INDICATION: Shortness of breath TECHNIQUE: PA and lateral views of the chest are obtained. COMPARISON: 08/09/2020 FINDINGS: Cardiomegaly is noted. There are diffuse interstitial and airspace opacities. More focal ai rspace opacities are seen in the lung bases. There are small pleural effusions. No pneumothorax is id entified. Median sternotomy wires and mediastinal surgical clips are seen, likely from prior coronary artery bypass grafting. There is moderate thoracic spondylosis. IMPRESSION: 1. Cardiomegaly with mild pulmonary edema. 2. Bibasilar airspace opacities, consistent with atelectasis versus pneumonia. 3. Small pleural effusions. Reviewed, dictated and finalized at location A.
--- NOTE | 2020-08-24 02:10 | ECG_ITS ---
Measurements Intervals [place] Rate: 97 P: 267 OK: 113 QRS: -56 QRSD: 218 T: 96 QT: 421 QTc: 536 Interpretive Statements SINUS OR ECTOPIC ATRIAL RHYTHM LEFT AXIS DEVIATION LEFT BUNDLE BRANCH BLOCK BASELINE ARTIFACT- I, II, III, AVR, AVL, AVF ABNORMAL ECG Electronically Signed On 08-24-2020 6:59:35 CDT by John Zurita D.O.
[2020-08-24] MEDS: ALBUTEROL SULFATE NEB 2.5 MG/0.5 ML INH 5 MG INHALATION (02:14)
[2020-08-24] MEDS: IPRATROPIUM BR 0.02% INH SOLN 0.5 MG/2.5 ML VIAL INHALATION (02:14)
[2020-08-24 02:44] LABS: Basophils Absolute Auto 0.1 K/mm3 (0.0-0.1); Basophils Percent Auto 0.7 % (0.2-1.2); Eosinophils Absolute Auto 0.2 K/mm3 (0-0.3); Eosinophils Percent Auto 1.5 % (0-4.4); Hematocrit 44.2 % (42.0-52.0); Hemoglobin 13.8 g/dL (14.0-18.0); Immature Granulocyte Absolute 0.09 K/mm3 (0.00-0.031); Immature Granulocyte Percent A 0.7 % (0-0.5); Lymphocytes Absolute Auto 1.95 K/mm3 (0.9-3.2); Lymphocytes Percent Auto 14.3 % (18.3-44.2); Mean Corpuscular HGB Conc 31.2 g/dl (32-36); Mean Corpuscular Hemoglobin 28.9 pg (26-34); Mean Corpuscular Volume 92.7 fl (80-100); Mean Platelet Volume 9.9 fl (7.4-10.4); Neutrophils Absolute Auto 10.4 K/mm3 (1.3-6.7); Neutrophils Percent Auto 75.8 % (45.5-73.1); Platelet Count Result 375 k/mm3 (150-375); Red Blood Count 4.77 M/mm3 (4.6-6.20); Red Cell Distribution Width 13.9 % (11.5-14.5); White Blood Count 13.6 K/mm3 (4.5-10.0)
[2020-08-24 02:57] LABS: Anion Gap 12 mmol/L (8-16); Blood Urea Nitrogen 12 mg/dL (9-20); Calcium 9.3 mg/dL (8.4-10.2); Carbon Dioxide 28 mmol/L (22-30); Chloride 101 mmol/L (98-107); Estimated CRCL calculation 55 ml/min; Estimated Glomerular Filt Rate > 60; Glucose 188 mg/dL (75-110); Potassium 3.9 mmol/L (3.4-5.0); Sodium 141 mmol/L (137-145)
--- NOTE | 2020-08-24 03:01 | ED.SOB ---
HPI - SOB/Dyspnea General Chief Complaint: Shortness of Breath/Dyspnea Stated Complaint: shortness of breath Time Seen by Provider: 08/24/20 02:14 History of Present Illness HPI Narrative: Patient is a 79-year-old male who presents ER with shortness of breath. Patient with severely reduced ejection fraction wears a LifeVest. Has been hospitalized multiple times for respiratory failure and CHF. Patient reports compliance with home medication. Patient hypoxic on arrival. Related Data Home Medications Medication Instructions Recorded Confirmed aspirin 325 mg tablet,delayed 325 mg PO QPM 03/07/19 08/22/20 release rosuvastatin 20 mg PO DAILY 05/03/20 08/22/20 amiodarone 200 mg tablet 200 mg PO DAILY 05/22/20 08/22/20 Allergies Allergy/AdvReac Type Severity Reaction Status Date / Time Sulfa (Sulfonamide Allergy Unknown Rash Verified 08/24/20 01:49 Antibiotics) [facility] Past Medical History Medical History Bilateral carotid artery disease With complete occlusion of the left carotid, right carotid endarterectomy 2004 CAD (coronary artery disease) COPD (chronic obstructive pulmonary disease) Diabetes mellitus Essential (primary) hypertension Gout, unspecified Hypertension with heart disease Ischemic cardiomyopathy With life vest in place Kidney stones Mixed hyperlipidemia Spondylosis of lumbar region without myelopathy or radiculopathy Tobacco dependence He chewed tobacco from time he was a teenager up until use 58 years old at that time he began smoking and smoked 2.5 packs per day quit smoking April 2020 Surgical History Surgical History History of cardiac catheterization (05/03/20) Left main: large caliber vessel but seems to be very heavily calcified with 90% stenosis involving most of the body of the left main Lad medium size artery showed proximal calcified 90%, and mid 75%, 1st diagonal branch with proximal 75% disease Left circumflex artery, mid circ 75% disease RCA: Dominant vessel, showed mid RCA significant irregularity with a 40-50% disease. History of right-sided carotid endarterectomy (~2004) Hx of cholecystectomy S/P CABG (coronary artery bypass graft) (05/06/20) 3 vessel CABG performed at [facility] by Dr. Armendariz Family History Family History Father Lung cancer Social History Social History Social History: The patient is and lives alone. He has 1 daughter. He is retired from [employer]. He chewed tobacco for over 50 years. He quit chewing tobacco at 58 years old and started smoking 2.5 packs of cigarettes per day. He smoked for 21 years and quit smoking in April of 2020 when he had his bypass procedure. He does not drink alcohol or use illicit substances. Primary care physician: Dr. Kvng Mcclendon Code status: Full code Smoking packs per day: 3 Smoking cigarettes per day: 60.0 Years smoked: 21 Smoking pack-years: 63.00 Smoking status: Former smoker Tobacco type: cigarettes Second hand tobacco smoke exposure: Yes Smoking end date: 05/03/20 Alcohol intake: never Substance use: never Substance use type: does not use Gender identity (if verbalized by the patient): Male Spiritual care concerns: No Exam Narrative: Exam Narrative: GENERAL: Uncomfortable-appearing, well-nourished, and in mild distress. HEAD: Normocephalic, atraumatic. ENT: Mucous membranes moist. CHEST: Diffuse crackles. Moderate respiratory distress. HEART: Regular rate and rhythm. Normal peripheral pulses. ABDOMEN: Soft, nontender, nondistended. EXTREMITIES: Normal range of motion. No edema. SKIN: Warm, dry, no rash. NEURO: Alert and oriented x3. PSYCH: Normal mood and affect. Course Course Emergency Course: Patient improving
[2020-08-24] MEDS: FUROSEMIDE INJ 40 MG/4 ML VIAL IV PUSH (03:08)
[2020-08-24 03:09] LABS: NT Pro B Type Natriuretic Pept 5650 pg/mL (5-100)
--- NOTE | 2020-08-24 04:36 | PM.IMHP ---
H&P: HPI History of Present Illness Date/Time: 08/24/20 04:36 Chief Complaint: Sudden shortness of breath Narrative: 79-year-old male with a past medical history of severe ischemic cardiomyopathy, recent 3 vessel CABG 05/06/2020, non STEMI 08/09/2020 who presented to the ER from home due to shortness of breath. This is the patient's 3rd admission to the hospital since the 23 of July due to similar symptoms. He was admitted July 23 and left AMA, he returned on August 09 with similar symptoms and had a non STEMI with repeat cardiac catheterization. He was readmitted tonight for exactly the same symptoms as previous. He reported that he was sitting down and suddenly developed severe shortness of breath. He was unable to catch his breath. He denied any chest pain or palpitations. He has been wearing his life vest in his life vest did not fire. He denies any fevers or chills. He did not have any nausea vomiting or diaphoresis. He did develop some cough that was nonproductive shortly before the onset of his shortness of breath. he reports that his weight has been stable. He has been compliant with his low-sodium diet. Review of Systems Review of Systems: Narrative: 12 systems were reviewed with pertinent positives and negatives per HPI. Except as documented in the HPI, all other systems were reviewed and are negative. [facility] Past Medical History Medical History (Updated 08/24/20 @ 08:05 by Taylor Dill DO) Bilateral carotid artery disease With complete occlusion of the left carotid, right carotid endarterectomy 2004 CAD (coronary artery disease) COPD (chronic obstructive pulmonary disease) Diabetes mellitus Essential (primary) hypertension Gout, unspecified Hypertension with heart disease Ischemic cardiomyopathy EF of 15-20% on limited echo 08/10/2020 which had worsened from echocardiogram in April with EF 30-35%. He has life vest in place Kidney stones Mixed hyperlipidemia Spondylosis of lumbar region without myelopathy or radiculopathy Tobacco dependence He chewed tobacco from time he was a teenager up until use 58 years old at that time he began smoking and smoked 2.5 packs per day quit smoking April 2020 Surgical History Surgical History History of cardiac catheterization (05/03/20) Left main: large caliber vessel but seems to be very heavily calcified with 90% stenosis involving most of the body of the left main Lad medium size artery showed proximal calcified 90%, and mid 75%, 1st diagonal branch with proximal 75% disease Left circumflex artery, mid circ 75% disease RCA: Dominant vessel, showed mid RCA significant irregularity with a 40-50% disease. History of right-sided carotid endarterectomy (~2004) Hx of cholecystectomy S/P CABG (coronary artery bypass graft) (05/06/20) 3 vessel CABG performed at [facility] by Dr. Armendariz Family History Family History Father Lung cancer Social History Social History Social History: The patient is and lives alone. He has 1 daughter. He is retired from [employer]. He chewed tobacco for over 50 years. He quit chewing tobacco at 58 years old and started smoking 2.5 packs of cigarettes per day. He smoked for 21 years and quit smoking in April of 2020 when he had his bypass procedure. He does not drink alcohol or use illicit substances. Primary care physician: Dr. Kvng Mcclendon Code status: Full code Smoking packs per day: 3 Smoking cigarettes per day: 60.0 Years smoked: 21 Smoking pack-years: 63.00 Smoking status: Former smoker Tobacco type: cigarettes Second hand tobacco smoke exposure: Yes Smoking end date: 05/03/20 Alcohol intake: never Substance use: never Substance use type: does not use Gender identity (if verbalized by the patient): Male
[2020-08-24] MEDS: NITROGLYCERIN OINTMENT 1 INCH DOSE 0.5 INCH TRANSDERM (04:37)
[2020-08-24 05:29] LABS: Troponin I 0.033 ng/mL (0.000-0.034)
--- NOTE | 2020-08-24 08:27 | PM.CNCAR ---
Assessment and Plan Assessment and plan (1) NSTEMI (non-ST elevated myocardial infarction): Code(s): I21.4 - Non-ST elevation (NSTEMI) myocardial infarction Status: Acute Assessment and Plan: 79-year-old man with h/o CAD s/p CABG (05/06/20, RODRIGUEZ to mild LAD, SVG to Diag 1, SVG to OM1), ischemic cardiomyopathy (wearing Life Vest), CVA (1995), paroxysmal atrial fibrillation (after CABG), LBBB, carotid artery stenosis (left ICA occluded, s/p R CEA 1995), hypertension, diabetes mellitus, hyperlipidemia, COPD, former tobacco dependence (quit 05/06/20, 20 years) who seen in cardiac consultation for chief complaint of dyspnea, with non ST elevation myocardial infarction. Trop up to 1.1 and has not peaked yet EKG with LBBB, unchanged No chest pain, although he never had chest pain with his first two NSTMIs in April and July rather presents with resp failure similar to his current presentation During his recent admission with NSTMI he was found to have early graft occlusion to OM and severe SVG distal anastomosis lesion to D1. Echo at that time showed further decline in LV function. He was scheduled for intervention on SVG lesion at [facility] on 09/02/20 but given his presentation now again with NSTMI will transfer to [facility] for repeat catheterization and possible intervention Will start IV heparin Continue Dual antiplatelet therapy and statin Continue IV diuresis. He is more stable from resp standpoint and has been weaned of BiPAP Continue BB and BERNARD I for ischemic cardiomyopathy He had brief post op A fib but remains in sinsu rhythm since. Continue amiodarone (2) Ischemic cardiomyopathy: Code(s): I25.5 - Ischemic cardiomyopathy Status: Acute Assessment and Plan: With recent further decline in LV function in the setting of NSTMI and early graft occlusion Now has acute on chronic systolic heart failure Required BIPAP earlier but doing better now COntinue IV lasix (3) Acute respiratory failure: Qualifiers: Respiratory failure complication: hypoxia Qualified Code(s): J96.01 - Acute respiratory failure with hypoxia Code(s): J96.00 - Acute respiratory failure, unspecified whether with hypoxia or hypercapnia Status: Acute (4) CAD (coronary artery disease): Code(s): I25.10 - Atherosclerotic heart disease of [place] coronary artery without angina pectoris Status: Acute Assessment and Plan: plan as outlined above History of Present Illness History of Present Illness Consult date/time: 08/24/20 08:27 79-year-old man with h/o CAD s/p CABG ([facility], 05/06/20, 3 v., RODRIGUEZ to mild LAD, SVG to Diag 1, SVG to OM1), ischemic cardiomyopathy (wearing Life Vest), CVA (1995), paroxysmal atrial fibrillation (after CABG), RBBB, carotid artery stenosis (left ICA occluded, s/p R CEA 1995), hypertension, diabetes mellitus, hyperlipidemia, COPD, moderate pulmonary HTN, former tobacco dependence (quit 05/06/20, 20 years) who seen in cardiac consultation for chief complaint of dyspnea, with non ST elevation myocardial infarction. He was recently (2 weeks ago) admitted with similar presentation when presented with resp failure and had NSTMI with trop peaked at 14. Underwent [facility] and found to have patent RODRIGUEZ to LAD, occlusion of SVG to OM, patent SVG to D1 with 90% anastomosis lesion. Echo during his recent admission showed further decline in LV function with EF 15-20% from 30-35%. He presents again with shortness of breath and resp failure requiring BiPAP support. He received IV lasix and feels better He has no chest pain neither did have any pain with his presentations with NSTMI in April and July. initial trop was 0.03 second trop is up to 1.1. NT pro BNP >5000 EKG shows sinus rhythm with LBBB, unchanged compared to recent admission He quit smoking earlier this year at time of CABG Reason For Visit: chf exacerbation, acute respiratory failure Review of Systems Review of Systems:
[2020-08-24] MEDS: HEPARIN SODIUM 5,000 UNITS/ML VIAL 4000 UNITS IV PUSH (08:51)
[2020-08-24 08:52] LABS: Basophils Percent Auto 0.3 % (0.2-1.2); Hematocrit 38.6 % (42.0-52.0); Hemoglobin 12.3 g/dL (14.0-18.0); Immature Granulocyte Absolute 0.06 K/mm3 (0.00-0.031); Immature Granulocyte Percent A 0.5 % (0-0.5); Lymphocytes Absolute Auto 0.68 K/mm3 (0.9-3.2); Lymphocytes Percent Auto 5.7 % (18.3-44.2); Mean Corpuscular HGB Conc 31.9 g/dl (32-36); Mean Corpuscular Hemoglobin 28.9 pg (26-34); Mean Corpuscular Volume 90.8 fl (80-100); Mean Platelet Volume 9.7 fl (7.4-10.4); Monocytes Absolute Auto 0.7 K/mm3 (0.1-0.6); Monocytes Percent Auto 5.7 % (2.6-8.5); Neutrophils Absolute Auto 10.4 K/mm3 (1.3-6.7); Neutrophils Percent Auto 87.8 % (45.5-73.1); Platelet Count Result 314 k/mm3 (150-375); Red Blood Count 4.25 M/mm3 (4.6-6.20); Red Cell Distribution Width 13.9 % (11.5-14.5); White Blood Count 11.9 K/mm3 (4.5-10.0)
[2020-08-24] MEDS: HEPARIN SOD/D5W 100 UNITS/ML 25,000 UNITS/250 ML BAG 10 UNITS IV CONT (08:52)
[2020-08-24 09:01] LABS: INR 1.1; Prothrombin Time 13.9 Seconds (11.1-14.7)
[2020-08-24 09:02] LABS: Partial Thromboplastin Time 25.2 SECONDS (22.3-36.8)
[2020-08-24] MEDS: lisinopriL 20 MG TABLET PO (09:18)
[2020-08-24] MEDS: AMIODARONE HCL 200 MG TABLET PO (09:18)
[2020-08-24] MEDS: METOPROLOL SUCCINATE EXT REL 25 MG TABCR 75 MG PO (09:19)
[2020-08-24] MEDS: ROSUVASTATIN 10 MG TABLET 20 MG PO (09:19)
[2020-08-24] MEDS: CLOPIDOGREL BISULFATE 75 MG TABLET PO (09:19)
[2020-08-24] MEDS: FUROSEMIDE INJ 40 MG/4 ML VIAL 20 MG IV PUSH (09:21)
[2020-08-24 12:10] LABS: Glucose Point of Care 132 mg/dl (65-105)
[2020-08-24 15:40] LABS: Partial Thromboplastin Time 65.9 SECONDS (22.3-36.8)
--- NOTE | 2020-08-24 16:12 | PC.NURSE ---
This patient, Mahendra Fletcher, was transferred to [ U room 821] on 08/24/20 at 1612. Personal belongings sent with patient including lifevest. Report given to [ brianne copeland]. Appropriate documentation sent with patient. EMS transporting pt with heparin drip infusing at 10ml/hr.
--- NOTE | 2020-08-24 18:52 | PM.TDS ---
Transfer Discharge Sum: Prov Provider Date of admission: 08/24/20 04:50 Primary care physician: Kvng Mcclendon MD Admitting clinician: Taylor Dill DO Consults: 08/24/20 04:51 Consult to Physician Routine Comment: Consulting Provider: Luis Duncan employment training specialist/MD group to consult: conrado Reason for consultation: chf exacerbation Has provider been notified: Yes DS: Admitting Diagnosis Admitting Diagnosis Admitting Diagnosis: Shortness of breath DS: Discharge Diagnosis Discharge Diagnosis (1) Ischemic cardiomyopathy: Code(s): I25.5 - Ischemic cardiomyopathy Status: Acute (2) Acute exacerbation of CHF (congestive heart failure): Code(s): I50.9 - Heart failure, unspecified Status: Acute (3) NSTEMI (non-ST elevated myocardial infarction): Code(s): I21.4 - Non-ST elevation (NSTEMI) myocardial infarction Status: Acute (4) S/P CABG (coronary artery bypass graft): Onset Date: 05/06/20 Code(s): Z95.1 - Presence of aortocoronary bypass graft Status: Acute (5) CAD (coronary artery disease): Code(s): I25.10 - Atherosclerotic heart disease of [place] coronary artery without angina pectoris Status: Acute (6) Acute respiratory failure with hypoxia: Code(s): J96.01 - Acute respiratory failure with hypoxia Status: Acute (7) Diabetes mellitus with hyperglycemia: Qualifiers: Diabetes mellitus type: type 2 Diabetes mellitus detention insulin use: without termite control technician use Qualified Code(s): E11.65 - Type 2 diabetes mellitus with hyperglycemia Code(s): E11.65 - Type 2 diabetes mellitus with hyperglycemia Status: Acute Transfer Discharge Sum: Med Medications Active and Home Medications: Home Medications aspirin 325 mg tablet,delayed release 325 mg PO QPM 03/07/19 [History Confirmed 08/24/20] rosuvastatin 20 mg PO DAILY 05/03/20 [History Confirmed 08/24/20] amiodarone 200 mg tablet 200 mg PO DAILY 05/22/20 [History Confirmed 08/24/20] lisinopril 20 mg tablet 20 mg PO DAILY #30 tablet 07/05/20 [Rx Confirmed 08/24/20] allopurinol 300 mg tablet 300 mg PO DAILY #90 tablet 06/17/21 [Rx Confirmed 08/24/20] clopidogrel 75 mg PO QAM #30 tablet 08/13/20 [Rx Confirmed 08/24/20] furosemide [Lasix] 40 mg PO DAILY #30 tablet 08/13/20 [Rx Confirmed 08/24/20] metoprolol succinate 25 mg tablet,extended release 24 hr 75 mg PO DAILY #90 tablet 08/22/20 [Rx Confirmed 08/24/20] dapagliflozin [Farxiga] 10 mg PO DAILY 08/24/20 [History Confirmed 08/24/20] Transfer Discharge Sum: Hosp Hospital Course Hospital course: Mahendra Fletcher is a 79 year old male who has a history of coronary artery disease status post CABG on 05/06/2020, ischemic cardiomyopathy wearing life vest, CVA in 1995, proximal atrial fibrillation post CABG, left bundle branch block, carotid artery stenosis status post right CEA 1995, hypertension, diabetes mellitus, hyperlipidemia, COPD, former tobacco dependence presented on 08/23/2020 with shortness of breath. On evaluation he was found to have non ST elevation [place] with troponin peaking to 3. He had similar presentation a week prior on when he underwent cardiac catheterization which showed early graft occlusion to OM and severe SVG distal anastomosis lesion to D1 echo also showed further decline in LV function. He was scheduled for intervention on SVG lesion at [facility] to be done on 09/02/2020 however he presents prior to that with another non STEMI. Cardiology was consulted and arrangements were made for transfer to [facility] for possible intervention. He was started on IV heparin and was continued on dual antiplatelet therapy along with statin his respiratory symptoms and chest pain resolved. He was also initially started on BiPAP and was weaned off. He was excepted at [facility] by Dr. Fly nevarez. and is getting transferred Time Spent with Patient Time attestation: Total time spent providing and/or information technology coordinator
== END 2020-08-24 15:55 ==
LOC: ANHED 02:43 → ANHIMU 05:40
PROVIDERS: Internal Medicine; Admitting Provider Internal Medicine; Emergency Provider Emergency Medicine; PCP Family Medicine; Visit Provider Internal Medicine
DX: I25.5 Ischemic cardiomyopathy (principal); I50.23 Acute on chronic systolic (congestive) heart failure; I21.4 Non-ST elevation (NSTEMI) myocardial infarction; I25.10 Atherosclerotic heart disease of native coronary artery without angina pectoris; J96.01 Acute respiratory failure with hypoxia; E11.65 Type 2 diabetes mellitus with hyperglycemia; J81.1 Chronic pulmonary edema; J44.9 Chronic obstructive pulmonary disease, unspecified; I10 Essential (primary) hypertension; J90 Pleural effusion, not elsewhere classified; M10.9 Gout, unspecified; R94.31 Abnormal electrocardiogram [ECG] [EKG]; E78.2 Mixed hyperlipidemia; M47.816 Spondylosis without myelopathy or radiculopathy, lumbar region; Z87.891 Personal history of nicotine dependence; Z90.49 Acquired absence of other specified parts of digestive tract; Z79.02 Long term (current) use of antithrombotics/antiplatelets; Z79.82 Long term (current) use of aspirin; Z79.899 Other long term (current) drug therapy; Z95.811 Presence of heart assist device; Z98.890 Other specified postprocedural states; Z95.1 Presence of aortocoronary bypass graft
CPT/HCPCS: 36415; 71046; 80048; 82948; 83880; 84484; 85025; 85610; 85730; 93005; 94002; 94640; 96374; 96376; 99285; A9270; G0378; J1644; J1940

== ENCOUNTER 2022-08-26 16:55 | Emergency (ER) | payer MEDICARE, SELFPAY ==
[2022-08-26] VITALS (33 sets, daily range): BP systolic 71–115; BP diastolic 38–64; PULSE 88–108; RESP 11–26; TEMP 36.6–36.7; O2SAT 90–100
--- NOTE | ~2022-08-26 | XR_ITS ---
XR chest 1V portable DATE: 08/26/2022 19:03 INDICATION: Weakness TECHNIQUE: Portable AP chest on 08/26/2022 at 1903 hours COMPARISON: 08/24/2020 PA and lateral chest FINDINGS: Status post sternotomy. Cardiomegaly. Aortic calcification and unfolding. No hilar or media stinal enlargement. Mild left lower lobe infiltrate or atelectasis. The lungs otherwise appear clear. No right pleural ef fusion. Possible slight left pleural effusion. Osteopenia. IMPRESSION: Mild left lower lobe infiltrate or atelectasis and suggestion of minimal left pleural eff usion Cardiac megaly, aortic atherosclerosis Status post sternotomy Osteopenia Reviewed, dictated and finalized at location A. IMPRESSION: Mild left lower lobe infiltrate or atelectasis and suggestion of mi nimal left pleural effusion Cardiac megaly, aortic atherosclerosis Status post sternotomy Osteopenia
--- NOTE | 2022-08-26 17:11 | ED.NAVMDI ---
HPI - Nausea/Vomiting/Diarrhea General Chief complaint: Nausea/Vomiting/Diarrhea Stated complaint: weakness Time Seen by Provider: 08/26/22 17:11 Source: patient and EMS Mode of arrival: EMS Limitations: no limitations History of Present Illness HPI Narrative: 81-year-old male, smoker with a history of hypertension, dyslipidemia, diabetes mellitus, COPD, peripheral vascular disease status post right CEA in 1985, CVA, gout, kidney stones, lumbar spondylosis, coronary artery disease status post CABG in April of 2020, status post stents in August of 2020, cardiomyopathy with an EF of 15-20% with paroxysmal atrial fibrillation presents to the ER with a 3 day history of -- nausea with multiple episodes of vomiting which has now resolved -- multiple episodes of watery diarrhea which has now resolved no fever. No abdominal pain. MD elicited complaint: nausea, vomiting and diarrhea Pertinent past history: abdominal surgery Onset (ago): day(s) ( Symptoms for 3 days which has now resolved) Description of vomiting: watery Description of diarrhea: watery Associated nausea: Yes Associated abdominal pain: No Exacerbating factors: none Relieving factors: none Associated symptoms: nausea/vomiting Related Data Home Medications Medication Instructions Recorded Confirmed aspirin 325 mg tablet,delayed 325 mg PO QPM 03/07/19 08/26/22 release (Aspir-Spring) amiodarone 200 mg tablet 200 mg PO DAILY 05/22/20 08/26/22 sacubitril 49 mg-valsartan 51 mg 1 tablet PO BID 08/26/22 08/26/22 tablet (Entresto) Allergies Allergy/AdvReac Type Severity Reaction Status Date / Time Sulfa (Sulfonamide Allergy Unknown Rash Verified 08/26/22 17:16 Antibiotics) Review of Systems Review of Systems: All systems reviewed & are unremarkable except as noted in HPI and below Constitutional: Constitutional: Reports as per HPI, Reports no additional constitutional complaints and Reports weakness Eyes: Eyes: Reports as per HPI and Reports no additional eye complaints ENT: Reports system reviewed and no additional complaints, except as documented, Reports as per HPI and Reports dry mouth Cardiovascular: Cardiovascular: Reports as per HPI, Reports no additional cardiovascular complaints and Reports dyspnea on exertion Respiratory: Respiratory: Reports as per HPI, Reports no additional respiratory complaints, Reports dyspnea and Reports dyspnea on exertion Gastrointestinal: Gastrointestinal: Reports as per HPI, Reports no additional gastrointestinal complaints, Reports diarrhea, Reports nausea and Reports vomiting Genitourinary: Genitourinary: Reports no additional male genitourinary complaints Musculoskeletal: Musculoskeletal: Reports no additional musculoskeletal complaints and Reports as per HPI Integumentary/Breasts: Skin/Breast: Reports system reviewed and no additional complaints, except as docu and Reports as per HPI Neurologic: Reports system reviewed and no additional complaints, except as documented and Reports as per HPI Psychiatric: Psychiatric: Reports no additional psychiatric complaints and Reports as per HPI Hematologic/Lymphatic: Hematologic/Lymphatic: Reports no additional hematologic/lymphatic complaints and Reports as per HPI Allergic/Immunologic: Allergic/Immunologic: Reports no additional allergic/immunologic complaints and Reports as per HPI [facility] Past Medical History Medical History Bilateral carotid artery disease With complete occlusion of the left carotid, right carotid endarterectomy 2004 CAD (coronary artery disease) COPD (chronic obstructive pulmonary disease) Diabetes mellitus Essential (primary) hypertension Gout, unspecified Hypertension with heart disease Ischemic cardiomyopathy EF of 15-20% on limited echo 08/10/2020 which had worsened from echocardiogram in April with EF 30-35%. He has life vest in place Kidney stones Mixed hyperlipidemia Spondylosis of lumbar
--- NOTE | 2022-08-26 17:57 | ECG_ITS ---
Measurements Intervals [place] Rate: 102 P: 83 SD: 279 QRS: -65 QRSD: 190 T: 105 QT: 433 QTc: 567 Interpretive Statements SINUS TACHYCARDIA LEFT ATRIAL ENLARGEMENT LEFT AXIS DEVIATION LEFT BUNDLE BRANCH BLOCK BASELINE ARTIFACT- I, II, AVR, AVL, AVF ABNORMAL ECG COMPARED TO ECG 08/24/2020 02:13:41 SINUS TACHYCARDIA NOW PRESENT Electronically Signed On 08-26-2022 21:42:00 CDT by John Zurita D.O.
[2022-08-26 18:15] LABS: Hematocrit 27.9 % (37.0-46.0); Hemoglobin 9.3 g/dL (12.4-15.3); Immature Platelet Fraction Pct 2.6 % (1.0-7.0); Mean Corpuscular HGB Conc 33.3 g/dL (32.0-36.0); Mean Corpuscular Hemoglobin 28.9 pg (27.0-31.0); Mean Corpuscular Volume 86.6 fL (78.0-102.0); Mean Platelet Volume 9.7 fl (8.7-11.0); Platelet Count Result 717 K/mm3 (150-420); Red Blood Count 3.22 M/mm3 (4.70-6.10); Red Cell Distribution Width 12.9 % (11.6-14.4)
[2022-08-26 18:18] LABS: White Blood Count 20.6 K/mm3 (4.8-10.8)
[2022-08-26] MEDS: LACTATED RINGERS 1,000 ML 75 ML IV CONT ×2 (18:22→19:25)
[2022-08-26 18:31] LABS: Band Neutrophils Percent 1 % (0-6); Basophils Percent Manual 0 % (0-1); Eosinophils Percent Manual 0 % (1-6); Lymphocytes Absolute Manual 1.85 K/mm3 (1.1-4.5); Lymphocytes Percent Manual 9 % (18-44); Metamyelocytes Percent 1 %; Monocytes Absolute Manual 1.23 K/mm3 (0.1-0.90); Monocytes Percent Manual 6 % (3-9); Neutrophils Percent Manual 83 % (46-73); Platelet Estimate Increased (Adequate); Total Cells Counted 100
[2022-08-26 18:32] LABS: Alanine Aminotransferase 23 U/L (16-63); Albumin Level 2.6 g/dL (3.4-5.0); Alkaline Phosphatase 116 U/L (46-116); Anion Gap 10 mmol/L (8-16); Aspartate Amino Transferase 24 U/L (15-37); Bilirubin,Total 0.5 mg/dL (0.00-1.00); Blood Urea Nitrogen 35 mg/dL (7-18); Calcium 8.9 mg/dL (8.5-10.1); Carbon Dioxide 29 mmol/L (21-32); Chloride 89 mmol/L (98-108); Estimated CRCL calculation 37 ml/min; Estimated Glomerular Filt Rate 47; Glucose 192 mg/dL (70-99); Magnesium 2.2 mg/dL (1.8-2.4); Osmolality Calculated 279 mOsm/kg (285-295); Potassium 3.4 mmol/L (3.5-5.1); Sodium 128 mmol/L (136-145); Uric Acid 2.8 mg/dL (3.5-7.2)
[2022-08-26 18:33] LABS: Troponin I 78.4 ng/L (0.00-60.4)
[2022-08-26 18:34] LABS: Lactic Acid Reflex 1.8 mmol/L (0.4-2.0)
--- NOTE | 2022-08-26 19:09 | PC.NURSE ---
Upon assessment, pt sitting in bed, he reports no pain and only weakness. Pt is alert x2 answers most questions appropriately and is somewhat confused as to where his address is and where he lives. Pt VSS, call being placed by tech to U for pts human machine interface engineer. Pt states his human machine interface engineer is Vicky Badillo at [facility].
[2022-08-26 20:07] LABS: Troponin I 102.5 ng/L (0.00-60.4)
[2022-08-26] MEDS: HEPARIN SOD/D5W 100 UNITS/ML 25,000 UNITS/250 ML BAG 9 UNITS IV CONT (21:07)
[2022-08-26] MEDS: AZITHROMYCIN 500 MG/NS 250 ML 500 MG/250 ML BAG 250 MG IVPB (21:16)
--- NOTE | 2022-08-26 22:20 | PC.NURSE ---
Pt stood c SBA to use urinal, pt transferred to EMS cot for transfer s difficulty. Monitor continues to show SR, VSS, no c/o. Report to [facility] for transfer given.
--- NOTE | 2022-09-02 14:18 | PC.NURSE ---
09/02/22 URINE CULTURE FINAL RESULTS NO GROWTH
== END 2022-08-26 22:25 | disposition short-term general hospital (02) ==
PROVIDERS: Emergency Provider Internal Medicine Critical Care Medicine; PCP Family Medicine
DX: I21.4 Non-ST elevation (NSTEMI) myocardial infarction (principal); K52.9 Noninfective gastroenteritis and colitis, unspecified; D72.829 Elevated white blood cell count, unspecified; E11.22 Type 2 diabetes mellitus with diabetic chronic kidney disease; I12.9 Hypertensive chronic kidney disease with stage 1 through stage 4 chronic kidney disease, or unspecified chronic kidney disease; N18.31 Chronic kidney disease, stage 3a; N17.9 Acute kidney failure, unspecified; E78.5 Hyperlipidemia, unspecified; J44.9 Chronic obstructive pulmonary disease, unspecified; I25.810 Atherosclerosis of coronary artery bypass graft(s) without angina pectoris; I48.0 Paroxysmal atrial fibrillation; E78.2 Mixed hyperlipidemia; Z95.1 Presence of aortocoronary bypass graft; Z79.82 Long term (current) use of aspirin; Z87.891 Personal history of nicotine dependence
CPT/HCPCS: 36415; 71045; 80053; 83605; 83735; 84484; 84550; 85025; 85055; 87040; 93005; 96361; 96365; 96368; 96375; 99291; J0456; J0696; J1644; J7120

== ENCOUNTER 2022-08-26 23:00 | Inpatient (IN) | payer MEDICARE, SELFPAY ==
--- NOTE | ~2022-08-26 | XR_ITS ---
Portable chest x-ray Comparison: 08/26/2022 Clinical History: Line placement Findings: Left-sided central venous line is present, tip in the SVC. Probable minimal left basilar a telectatic change. No pneumothorax. Right lung clear. Cardiomediastinal silhouette is stable. Bones and soft tissues are unremarkable. Impression: Left-sided central venous line in satisfactory position. No pneumothorax. Probable minimal left basilar atelectatic change. Reviewed, dictated and finalized at [facility]. Impression: Left-sided central venous line in satisfactory position. No pneumothorax. Probable minimal left basilar atelectatic change.
--- NOTE | ~2022-08-26 | XR_ITS ---
Portable chest x-ray Comparison: 08/29/2022 Clinical History: Dyspnea Findings: There is hazy bilateral airspace disease, most compatible with moderate pulmonary edema. P robable minimal right pleural effusion. Left-sided central venous line is unchanged. Cardiomediastin al silhouette is stable. Bones and soft tissues are unremarkable. Impression: Moderate pulmonary edema pattern with probable minimal right pleural effusion. Stable support line. Reviewed, dictated and finalized at location M. Impression: Moderate pulmonary edema pattern with probable minimal right pleural effusion. Stable support line.
--- NOTE | ~2022-08-26 | US_ITS ---
EXAMINATION: US paracentesis abd w/image DATE: 08/31/2022 13:29 INDICATION: Ascites. TECHNIQUE: The procedure and its risks and benefits were discussed with the patient. Potential risks discussed included bleeding and infection. The skin was prepped and draped in sterile fashion. 1% lid ocaine was used for local anesthesia. Under ultrasound guidance, a 5 Fr catheter with trochar was adv anced into the ascites in the right lower quadrant. Fluid was aspirated into vacuum bottles. The cath eter was removed, and a dressing was applied. There were no immediate complications. FINDINGS: Ultrasound images demonstrate ascites and the catheter within the fluid. IMPRESSION: 1. Successful ultrasound-guided paracentesis yielding 2600 mL of dark mario-colored fluid. Reviewed, dictated and finalized at location A. IMPRESSION: 1. Successful ultrasound-guided paracentesis yielding 2600 mL of dark mario-co lored fluid.
--- NOTE | ~2022-08-26 | CT_ITS ---
EXAMINATION: CT abdomen pelvis wo con DATE: 08/29/2022 12:38 INDICATION: Anemia. Shock. Acute kidney injury. TECHNIQUE: Computed tomography (CT) of the abdomen and pelvis was performed without intravenous contr ast. Automated exposure control and iterative reconstruction technique were employed. The dose-length product was 538.99 mGy-cm. COMPARISON: Chest CT 07/18/2020 FINDINGS: The visualized portions of the lung bases demonstrate small pleural effusions and dependent atelectasis. There is left ventricular enlargement of the heart. There are coronary artery calcifica tions. No pericardial effusion. There are at least 7 masses in the liver measuring up to 3.2 cm. Ther e are changes of cholecystectomy. The spleen is normal. The pancreas, adrenal glands, and kidneys are normal. The prostate is mildly enlarged. There is a Hodgson catheter in expected position. There are n o dilated loops of bowel. The appendix is not visualized. There is a large volume of ascites. There i s gastrohepatic and gastrosplenic lymphadenopathy. The gastrohepatic lymphadenopathy is contiguous wi th the stomach wall. There is peritoneal nodularity, worst in the greater omentum. There is a large v olume of ascites. There is a right inguinal hernia containing fat. There is calcified atherosclerosis of the aorta and many of the other arteries. There is severe lumbar spondylosis. There is mild chron ic anterior wedging of multiple thoracic vertebral bodies. IMPRESSION: 1. 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 2. Large volume of ascites. Paracentesis is recommended for diagnosis. 3. Small pleural effusions. Reviewed, dictated and finalized at location A. IMPRESSION: 1. Peritoneal carcinomatosis and liver masses, consistent with metastatic disea se, most likely from a stomach primary. 2. Large volume of ascites. Paracentesis is recommended for diagnosis. 3. Small pleural effusions.
--- NOTE | ~2022-08-26 | XR_ITS ---
Portable chest x-ray Comparison: 08/31/2022 Clinical History: Pulmonary edema Findings: Small left pleural effusion present with probable left basilar atelectasis. Pulmonary sabina a pattern otherwise is significantly improved from prior exam. Cardiomediastinal silhouette is stabl e. Bones and soft tissues are unremarkable. Impression: Probable minimal residual pulmonary edema, markedly improved from prior exam. Small left pleural effusion with left basilar presumed atelectasis. Reviewed, dictated and finalized at location . Impression: Probable minimal residual pulmonary edema, markedly improved from prior exam. Small left pleural effusion with left basilar presumed atelectasis.
--- NOTE | ~2022-08-26 | XR_ITS ---
EXAMINATION: XR chest 1V portable DATE: 08/29/2022 06:14 INDICATION: Pneumonia. TECHNIQUE: A single frontal view of the chest was obtained. COMPARISON: Chest single view 08/27/2022, chest CT 07/18/2020 FINDINGS: Again seen is mild elevation of left hemidiaphragm. There are airspace opacities in the low er lung zones. No pleural effusion or pneumothorax. Cardiomegaly is noted. Median sternotomy wires an d mediastinal surgical clips are seen, likely from prior coronary artery bypass grafting. A left inte rnal jugular central venous catheter is seen with tip in the superior vena cava. IMPRESSION: 1. Airspace opacities in the lower lung zones with mild worsening on the right, consistent with atele ctasis versus pneumonia. 2. Cardiomegaly. Reviewed, dictated and finalized at location A. IMPRESSION: 1. Airspace opacities in the lower lung zones with mild worsening on the right, consistent with atelectasis versus pneumonia. 2. Cardiomegaly.
--- NOTE | 2022-08-26 23:07 | ADMGEN ---
This patient, Mahendra Fletcher, was admitted to IMU Room 200-01. Patient/family oriented to hospital policies and general routines including ID bracelet, bed and alarms, visiting hours, pain management, procedures, bathroom and other care routines, personal items, smoking policy, room service/diet, and visiting hours. Information on how to activate the Rapid Response Team has been discussed. Patient/Family are encouraged to report perceived risks to care and to ask questions if they do not understand what they are told or what they should do.
--- NOTE | 2022-08-26 23:43 | PM.IMHP ---
H&P: HPI History of Present Illness Date/Time: 08/26/22 23:43 Chief Complaint: hypotension sepsis Anemia Referred from [facility] Narrative: This is an 81-year-old gentleman with a past medical history including but not limited to CAD, s/p CABG(), s/p stent (U 2020),? smoker, with a history of hypertension, dyslipidemia, diabetes mellitus, COPD, peripheral vascular disease status post right CEA in 1985, CVA, gout, kidney stones, lumbar spondylosis, coronary artery disease status post CABG in April of 2020, status post stents in August of 2020, cardiomyopathy with an EF of 15-20% with paroxysmal atrial fibrillation referred from [facility] for management of sepsis. The patient was in his usual state of health until about a week ago. He presented to the ER in [place] with a 3 day history of nausea with multiple episodes of vomiting, now resolved, multiple episodes of watery diarrhea which has now resolved. He denies fever or abdominal pain. There is no fever, chills or diaphoresis.? No abdominal pain. There is no chest pain, SOB, LE swelling. At [place], patient was found to have leucocytosis. Chest Xray suggests LLL infiltrate. He was hypotensive with BP 82/50; He was started on LR. Troponin was elevated 78->104. Patient was started on heparin drip. Patient transferred to [facility] for higher level of care. BP on arrival 109/58; it dropped to 71/38 and a bolus of lactated Ringer at 125cc/s per hour was started X 2 hour. Review of Systems Review of Systems: CONSTITUTIONAL: Negative for any fevers, chills, night sweats, tiredness, fatigue, malaise, anorexia or weight loss. CARDIOVASCULAR: Negative for chest pain, palpitations, dizziness, orthopnea or lower extremity edema. RESPIRATORY: Negative for shortness of breath, cough, wheezing, sputum. GASTROINTESTINAL: Positive for nausea, vomiting and diarrhea. Negative for abdominal pain. GENITOURINARY: Negative for frequency, nocturia, dysuria, hematuria. GYNECOLOGIC: Negative for abnormal bleeding. HEMATOLOGIC: Negative for any abnormal bleeding or bruising. MUSCULOSKELETAL: Negative for joint swelling, stiffness or pain. SKIN: Negative for rashes, eruptions, lesions or dryness. NEUROLOGIC: Negative for any focal neurologic complaints. PSYCHIATRIC: Negative for anxiety, panic, depression. [facility] Past Medical History Medical History Bilateral carotid artery disease With complete occlusion of the left carotid, right carotid endarterectomy 2004 CAD (coronary artery disease) COPD (chronic obstructive pulmonary disease) Diabetes mellitus Essential (primary) hypertension Gout, unspecified Hypertension with heart disease Ischemic cardiomyopathy EF of 15-20% on limited echo 08/10/2020 which had worsened from echocardiogram in April with EF 30-35%. He has life vest in place Kidney stones Mixed hyperlipidemia Spondylosis of lumbar region without myelopathy or radiculopathy Tobacco dependence He chewed tobacco from time he was a teenager up until use 58 years old at that time he began smoking and smoked 2.5 packs per day quit smoking April 2020 Surgical History Surgical History History of cardiac catheterization (05/03/20) Left main: large caliber vessel but seems to be very heavily calcified with 90% stenosis involving most of the body of the left main Lad medium size artery showed proximal calcified 90%, and mid 75%, 1st diagonal branch with proximal 75% disease Left circumflex artery, mid circ 75% disease RCA: Dominant vessel, showed mid RCA significant irregularity with a 40-50% disease. History of right-sided carotid endarterectomy (~2004) Hx of cholecystectomy S/P CABG (coronary artery bypass graft) (05/06/20) 3 vessel CABG performed at [facility] by Dr. Armendariz Family History Family History (Reviewed 08/27/22 @ 01:01 by Juan Miguel
[2022-08-26 23:50] VITALS: BP 87/47; PULSE 104; RESP 20; TEMP 36.5; O2SAT 98; BMI 21.3
[2022-08-27] VITALS (27 sets, daily range): BP systolic 62–123; BP diastolic 31–68; PULSE 50–118; RESP 11–26; TEMP 36.5–36.8; O2SAT 91–97
--- NOTE | 2022-08-27 | ECHO_ITS ---
Patient Info Name: Mahendra Fletcher Age: 81 years : 1940 Gender: Male Ht: 70 in Wt: 165 lbs BSA: 1.93 m2 HR: 95 bpm BP: 123 / 59 mmHg Technical Quality: Good Exam Date: 08/27/2022 9:00 AM Exam Location: [facility] Patient Status: Inpatient Admit Date: 08/26/2022 Staff Ordering Physician: Elier Hahn MD Crushing Foreman: MIKEL Attending Provider: Elvia Bojorquez MD Exam Type: CA echo doppler color flow Study Info Indications - CHF Complete two-dimensional, color flow and Doppler transthoracic echocardiogram is performed. Summary 1. Complete two-dimensional, color flow and Doppler transthoracic echocardiogram is performed. 2. Left ventricular chamber dimension is severely enlarged. 3. Left ventricular systolic function is moderately reduced, estimated at 35-40%. 4. There is mild concentric increased left ventricular wall thickness. 5. Left ventricular septal wall motion is abnormal with septal motion related to bundle branch block. 6. The left ventricular diastolic function is grade I diastolic dysfunction. 7. E/e' 10 is mildly elevated. 8. There is mild aortic valve sclerosis. 9. The mitral valve has mildly calcified annulus. 10. There is mild mitral valve regurgitation. 11. There is mild tricuspid valve regurgitation. 12. No pulmonary hypertension, estimated pulmonary arterial systolic pressure is 14 mmHg. 13. Pleural effusion. Left Ventricle E/e' 10 is mildly elevated. Left ventricular chamber dimension is severely enlarged. Left ventricular systolic function is moderately reduced, estimated at 35-40%. There is mild concentric increased left ventricular wall thickness. Left ventricular septal wall motion is abnormal with septal motion related to bundle branch block. The left ventricular diastolic function is grade I diastolic dysfunction. Right Ventricle Right ventricular chamber dimension is normal. Right ventricular systolic function is normal. Left Atria Left atrial chamber dimension is normal. Right Atria Right atrial chamber dimension is normal. Aortic Valve The aortic valve is trileaflet. There is mild aortic valve sclerosis. There is no aortic valve stenosis. There is no aortic valve regurgitation. Pulmonic Valve There is no pulmonic regurgitation. Mitral Valve The mitral valve has mildly calcified annulus. There is no mitral valve stenosis. There is mild mitral valve regurgitation. Tricuspid Valve There is mild tricuspid valve regurgitation. No pulmonary hypertension, estimated pulmonary arterial systolic pressure is 14 mmHg. Pericardium/Pleural Pleural effusion. There is no pericardial effusion. Inferior Vena Cava Normal inferior vena cava with >50% collapse upon inspiration consistent with normal right atrial pressure, 5 mmHg. Aorta The aortic root size at the sinus of Valsalva is normal. Left Ventricular Outflow Tract Name Value Normal LVOT 2D LVOT Diameter 2.0 cm LVOT Doppler LVOT Peak Gradient 3 mmHg LVOT Mean Gradient 1 mmHg LVOT VTI 10 cm LVOT VTI/AV VTI Ratio 0.9 LVOT Stroke Volume 33 ml
[2022-08-27 01:44] LABS: Basophils Percent Auto 0.2 % (0.2-1.2); Eosinophils Absolute Auto 0.5 K/mm3 (0-0.3); Eosinophils Percent Auto 2.8 % (0-4.4); Hemoglobin 8.4 g/dL (14.0-18.0); Lymphocytes Absolute Auto 1.01 K/mm3 (0.9-3.2); Lymphocytes Percent Auto 5.3 % (18.3-44.2); Mean Corpuscular HGB Conc 33.6 g/dl (32-36); Mean Corpuscular Hemoglobin 29.2 pg (26-34); Mean Corpuscular Volume 86.8 fl (80-100); Mean Platelet Volume 9.5 fl (7.4-10.4); Monocytes Absolute Auto 1.4 K/mm3 (0.1-0.6); Monocytes Percent Auto 7.4 % (2.6-8.5); Neutrophils Percent Auto 83.3 % (45.5-73.1); Platelet Count Result 536 k/mm3 (150-375); Red Blood Count 2.88 M/mm3 (4.6-6.20); Red Cell Distribution Width 13.2 % (11.5-14.5); White Blood Count 19.2 K/mm3 (4.5-10.0)
[2022-08-27 02:00] LABS: Lactic Acid Reflex 1.1 mmol/L (0.7-2.0)
[2022-08-27 02:01] LABS: Alanine Aminotransferase 21 U/L (6-50); Albumin Level 2.7 g/dL (3.5-5.1); Alkaline Phosphatase 103 U/L (38-126); Anion Gap 4 mmol/L (8-16); Aspartate Amino Transferase 29 U/L (17-59); Bilirubin,Total 0.5 mg/dL (0.2-1.3); Blood Urea Nitrogen 34 mg/dL (9-20); Calcium 8.1 mg/dL (8.4-10.2); Carbon Dioxide 30 mmol/L (22-30); Chloride 91 mmol/L (98-107); Estimated CRCL calculation 45 ml/min; Estimated Glomerular Filt Rate > 60; Glucose 164 mg/dL (65-110); Potassium 3.1 mmol/L (3.4-5.0); Sodium 125 mmol/L (137-145)
[2022-08-27 02:05] LABS: INR 1.2; Prothrombin Time 15.8 Seconds (11.1-14.7)
[2022-08-27 02:06] LABS: Partial Thromboplastin Time 37.5 SECONDS (22.3-36.8)
[2022-08-27 02:18] LABS: Troponin I 0.095 ng/mL (0.000-0.034)
--- NOTE | 2022-08-27 02:30 | ED.PROCEDURE ---
Procedures Central Line Placement Left IJ: Central Line Date: 08/27/22 Central Line Time: 02:00 Discussed w/ the patient/family/POA,the placement of a central venous catheter, including its clinical necessity/indication & associated potential risks, benifits and alternatives.: Yes The patient/family/POA understand(s) and acknowledge(s) the need to proceed with central venous catheter insertion as an important element of the patient's clinical management.: Yes Performed Emergently - Given emergent patient condition, temporal constraints may have precluded informed consent.: Yes Consent: I have discussed with the patient and/or surrogate, the non-emergent placement of a central venous catheter, including its clinical necessity/indication and associated potential risks and complications. The patient and/or surrogate understand(s) and acknowledge(s) the need to proceed with central venous catheter insertion as an important element of the patient's clinical management. Time Out Performed: Yes Patient Position: trendelenburg Patient placed on monitor/pulse ox: Yes Provider Prep: mask, sterile gown, sterile gloves, Max. sterile barrier precautions and hand hygiene with conventional soap/water or alcohol based hand rub Central line prep: 2% Chlorhexidine scrub and sterile full body sheet applied Local anesthesia used: lidocaine 2% Amount of anesthesia used (ml): 5 Sterile US Technique with sterile gel/sterile probe covers: Yes Central line lumen inserted: triple Length (cm): 16 Post Procedure: sutured in place, good blood return, all ports aspirated, flushed, capped, transparent dressing, hemostatic product and antimicrobial product Post procedure x-ray: tip of catheter in good position ( X-ray was rotated and tilted. Confirmatory venous blood gas has been ordered which was consistent w/ venous blood) and no pneumothorax seen Patient tolerated procedure: well
[2022-08-27 02:55] LABS: Fractional Inspired Oxygen 21 %; HCO3 VBG 27.6 mEq/l (24.0-30.0); PCO2 VBG 37.1 mmHg (42.0-48.0); PO2 VBG 46.6 mmHg (35.0-45.0)
[2022-08-27 02:56] LABS: Device ROOM AIR
[2022-08-27] MEDS: PIPERACILLIN/TAZ 2.25G/NS 50ML 2.25 GM/50 ML BAG IVPB ×2 (03:09→08:34)
--- NOTE | 2022-08-27 03:24 | PC.NURSE ---
Upon arrival to Imu. Pt bp was 87/47. Pt still alert and oriented. Alerted qualifications examiner and got orders for fluid bolus. Post bolus pressure had multiple systolics in the 60's. Also still alert and oriented. Discussed with qualifications examiner about other options of treatment and decided on ICU transfer to room 6 and start on pressors. Central line was placed by ER Physician using sterile technique at bedside.
[2022-08-27 03:30] LABS: Magnesium 2.1 mg/dL (1.6-2.3)
[2022-08-27] MEDS: NOREPINEPHRINE 8 MG/D5W 250 ML 8 MG/250 ML BAG 9.38 MG IV CONT (03:40)
[2022-08-27] MEDS: LACTATED RINGERS 1,000 ML 150 ML IV CONT (03:45)
[2022-08-27] MEDS: PANTOPRAZOLE SODIUM IV 40 MG VIAL IV PUSH (03:51)
[2022-08-27] MEDS: KCL 20 MEQ/SW 100 ML 100 ML 50 MEQ IVPB (04:16)
[2022-08-27] MEDS: HEPARIN SOD/D5W 100 UNITS/ML 25,000 UNITS/250 ML BAG 11 UNITS IV CONT (04:17)
[2022-08-27] MEDS: HEPARIN SODIUM 5,000 UNITS/ML VIAL 4000 UNITS IV PUSH (05:58)
[2022-08-27] MEDS: CENTRAL LINE FLUSH 10 ML IV PUSH ×3 (06:01→23:29)
[2022-08-27 06:17] LABS: Basophils Absolute Auto 0.1 K/mm3 (0.0-0.1); Basophils Percent Auto 0.2 % (0.2-1.2); Eosinophils Absolute Auto 0.7 K/mm3 (0-0.3); Eosinophils Percent Auto 2.8 % (0-4.4); Hematocrit 26.4 % (42.0-52.0); Hemoglobin 8.6 g/dL (14.0-18.0); Immature Granulocyte Absolute 0.36 K/mm3 (0.00-0.031); Immature Granulocyte Percent A 1.5 % (0-0.5); Lymphocytes Absolute Auto 0.78 K/mm3 (0.9-3.2); Lymphocytes Percent Auto 3.3 % (18.3-44.2); Mean Corpuscular HGB Conc 32.6 g/dl (32-36); Mean Corpuscular Hemoglobin 28.3 pg (26-34); Mean Corpuscular Volume 86.8 fl (80-100); Mean Platelet Volume 9.8 fl (7.4-10.4); Monocytes Absolute Auto 1.7 K/mm3 (0.1-0.6); Monocytes Percent Auto 7.2 % (2.6-8.5); Neutrophils Absolute Auto 20.2 K/mm3 (1.3-6.7); Platelet Count Result 734 k/mm3 (150-375); Red Blood Count 3.04 M/mm3 (4.6-6.20); Red Cell Distribution Width 13.1 % (11.5-14.5); White Blood Count 23.7 K/mm3 (4.5-10.0)
[2022-08-27 06:30] LABS: Anion Gap 6 mmol/L (8-16); Blood Urea Nitrogen 32 mg/dL (9-20); Carbon Dioxide 28 mmol/L (22-30); Chloride 90 mmol/L (98-107); Estimated CRCL calculation 53 ml/min; Estimated Glomerular Filt Rate > 60; Glucose 180 mg/dL (65-110); Magnesium 2.1 mg/dL (1.6-2.3); Potassium 3.5 mmol/L (3.4-5.0); Sodium 124 mmol/L (137-145)
[2022-08-27] MEDS: POTASSIUM CHLORIDE 20 MEQ ER TABLET 40 MEQ PO (08:33)
[2022-08-27] MEDS: CLOPIDOGREL BISULFATE 75 MG TABLET PO (08:33)
[2022-08-27] MEDS: allopurinoL 300 MG TABLET PO (08:33)
[2022-08-27] MEDS: AMIODARONE HCL 200 MG TABLET PO (08:33)
[2022-08-27] MEDS: ROSUVASTATIN 10 MG TABLET 20 MG PO (08:34)
[2022-08-27 08:42] LABS: NT Pro B Type Natriuretic Pept 2140 pg/mL (19.9-100)
[2022-08-27 08:50] LABS: Procalcitonin 0.7 ng/mL
--- NOTE | 2022-08-27 09:26 | WPDCNINT ---
Assessment and Plan Assessment and plan (1) Shock: Code(s): R57.9 - Shock, unspecified Status: Acute Assessment and Plan: Patient transferred to ICU secondary to hypotension. He has a mixed picture and I suspect his hypotension is secondary to dehydration from his diarrhea, multiple cardiac medication that he is on, cardiogenic from cardiomyopathy and possible sepsis He states he has not had any bowel movement last 2 days and his diarrhea has resolved and he is completely asymptomatic at this time His chest x-ray suggest possible pneumonia but he does not have any respiratory symptoms. His WBC was elevated but he is afebrile Blood cultures have been ordered and are pending. Urine Legionella and pneumococcal antigen are pending Check UA and microscopy Check procalcitonin level Continue empiric antibiotics Rocephin and doxycycline Continue cautious IV fluids Continue to hold cardiac medications including diuretics beta-damian and Entresto Will give albumin instead of of crystalloid Continue IV fluids at low rate for next 24 hours (2) Sepsis: Qualifiers: Sepsis type: sepsis due to unspecified organism Code(s): A41.9 - Sepsis, unspecified organism Status: Acute Assessment and Plan: See above (3) Community acquired pneumonia: Code(s): J18.9 - Pneumonia, unspecified organism Status: Acute Assessment and Plan: See above (4) FRANCISCO (acute kidney injury): Code(s): N17.9 - Acute kidney failure, unspecified Status: Acute Assessment and Plan: Presented with acute kidney injury which likely secondary to dehydration hypovolemia His creatinine has improved and normalized Monitor urine output electrolytes and creatinine (5) NSTEMI (non-ST elevated myocardial infarction): Code(s): I21.4 - Non-ST elevation (NSTEMI) myocardial infarction Status: Acute Assessment and Plan: Patient has history of coronary disease status post CABG and PCI likely type 2 non STEMI secondary to hypotension and dehydration. Patient denies any chest pain or anginal equivalents Troponin elevated Cardiology consulted Continue aspirin heparin infusion Plavix and statin. Beta-damian is on hold due to hypotension Check echo (6) Ischemic cardiomyopathy: Code(s): I25.5 - Ischemic cardiomyopathy Status: Acute Assessment and Plan: History of ischemic cardiomyopathy with last recorded EF 16% on echocardiogram done in 2020 Will repeat echo at this time Conservative IV fluids (7) CAD (coronary artery disease): Code(s): I25.10 - Atherosclerotic heart disease of [place] coronary artery without angina pectoris Status: Acute Assessment and Plan: See above (8) Diabetes mellitus with hyperglycemia: Qualifiers: Diabetes mellitus type: type 2 Diabetes mellitus assisted insulin use: without assisted use Qualified Code(s): E11.65 - Type 2 diabetes mellitus with hyperglycemia Code(s): E11.65 - Type 2 diabetes mellitus with hyperglycemia Status: Acute Assessment and Plan: Sliding scale insulin (9) COPD (chronic obstructive pulmonary disease): Qualifiers: COPD type: unspecified COPD Qualified Code(s): J44.9 - Chronic obstructive pulmonary disease, unspecified Code(s): J44.9 - Chronic obstructive pulmonary disease, unspecified Status: Acute Assessment and Plan: Not in exacerbation Will order bronchodilators Plan DVT prophylaxis -heparin infusion Nutrition -heart healthy diet Code Status - Full Code Total Critical Care Time - 40 minutes Due to a high probability of clinically significant, life threatening deterioration, the patient required my highest level of preparedness to intervene emergently and I personally spent this critical care time directly and personally managing the patient. This critical care time included obtaining a history; examining the patient; pulse
[2022-08-27] MEDS: ALBUMIN HUMAN 5% 25 GM/500 ML BTL IV CONT (09:39)
[2022-08-27 09:48] LABS: Appearance Urine Cloudy (Clear); Bacteria Urine None Seen /hpf; Bilirubin Urine Negative (Negative); Blood Urine 1+ (Negative); Color Urine Yellow (Yellow); Glucose Urine UA Trace mg/dL (Negative); Granular Casts Urine Present /lpf; Ketones Urine 1+ mg/dL (Negative); Leukocyte Esterase Ur Negative LEU/UL (Negative); Need Manual Microscopic Reviewed; Nitrate Urine Negative (Negative); Protein Urine 2+ mg/dL (Negative); RBC Urine 0-2 /hpf (0-2); Specific Grav Ur 1.019 (1.001-1.035); Squamous Epithelial Cell Urine Few /hpf (Few); Urobilinogen Urine 0.2 mg/dL (<2.0); WBC Urine 0-5 /hpf
--- NOTE | 2022-08-27 09:49 | PM.CNCAR ---
Assessment and Plan Assessment and plan (1) Shock: Code(s): R57.9 - Shock, unspecified Status: Acute Assessment and Plan: Appears to be septic. On Levophed. Cannot rule out underlying cardiogenic shock component, however, patient is not currently in decompensated heart failure, therefore, making cardiogenic shock less likely. Continue pressor support as needed, management as per ICU team. (2) FRANCISCO (acute kidney injury): Code(s): N17.9 - Acute kidney failure, unspecified Status: Acute Assessment and Plan: Resolved. (3) Elevated troponin: Code(s): R77.8 - Other specified abnormalities of plasma proteins Status: Acute Assessment and Plan: OSH troponin at 78 followed by 102 (high sensitivity assay). Troponin here at 0.095. EKG with sinus rhythm with chronic LBBB. No anginal symptoms. Likely demand ischemia from sepsis, shock. I will stop the Heparin drip as it does not appear to be an acute coronary syndrome. (4) Sepsis: Qualifiers: Sepsis type: sepsis due to unspecified organism Code(s): A41.9 - Sepsis, unspecified organism Status: Acute Assessment and Plan: Management as per ICU team. (5) Ischemic cardiomyopathy: Code(s): I25.5 - Ischemic cardiomyopathy Status: Acute Assessment and Plan: Last known EF 16%. Echocardiogram ordered and pending. Home GDMT medications of Toprol, Entresto, Spironolactone, Lasix are on hold given pressor requirements. Once patient is no longer requiring pressors and sepsis has resolved, recommend to slowly reintroduce GDMT as tolerated by hemodynamics and renal function. (6) CAD (coronary artery disease): Code(s): I25.10 - Atherosclerotic heart disease of [place] coronary artery without angina pectoris Status: Acute Assessment and Plan: Stable. No anginal symptoms. Continue ASA, Plavix, statin. (7) Acute on chronic anemia: Code(s): D64.9 - Anemia, unspecified Status: Acute Assessment and Plan: Has acute on chronic anemia with Hgb now in the 8s. Workup and management as per primary team. Plan Recommendations/plan discussed with Cut Roll Machine Offbearer, Dr. Hahn. History of Present Illness History of Present Illness Consult date/time: 08/27/22 09:49 Requesting physician: Elvia Bojorquez MD Consult reason: Other (Elevated troponins) Reason For Visit: Sepsis Narrative: We are consulted for elevated troponins. This is an 81-year-old male with complex coronary artery disease s/p CABG with early graft occlusion and PCI (RED CROSS WORKER of the left main with subtotal occlusion of channel from LAD to LCX, patent SVG to Diagonal, known occluded SVG to OM, and known patent RODRIGUEZ to LAD, s/p PCI to the left main in August 2020), heart failure with reduced ejection fraction with LVEF 16%, history of post-operative atrial fibrillation, CVA, LBBB, carotid artery stenosis s/p CEA, hypertension, diabetes mellitus, COPD. Patient follows with [facility]. Patient presented to [facility] 08/26 with 3 day history of nausea with multiple episodes of vomiting, multiple episodes of watery diarrhea. Found to be hypotensive on arrival and given IVFs with improvement. Troponin was elevated at 78 with repeat at 104 (high sensitivity assay). Patient started on Heparin drip. Patient transferred to [facility] for further management. Patient states he no longer has diarrhea, nausea, vomiting. No recent history or active chest pain, shortness of breath, orthopnea, lower extremity edema. Patient was initially admitted to the floors, however, due to hypotension, moved to the ICU and started on Levophed drip. WBC at 23.7. Hgb at 8.6. Had an FRANCISCO initially with SCr of 1.45, which has now resolved. Lactic acid normal. Troponin here at 0.095. BNP elevated at 2,140. EKG with sinus rhythm with chronic LBBB. CXR essentially clear. Patient states he is feeling much better this morning. Review of Systems Review of Syst
[2022-08-27 10:00] LABS: Add Urine Microscopic? YES
[2022-08-27] MEDS: cefTRIAXone 2 GM/NS 100 ML 2 GM/100 ML BAG IVPB (10:23)
[2022-08-27] MEDS: DOXYCYCLINE 100 MG/NS 100 ML 100 MG/100 ML BAG IVPB ×2 (11:38→23:29)
[2022-08-27 12:00] LABS: Lactic Acid Reflex 0.8 mmol/L (0.7-2.0)
[2022-08-27] MEDS: IPRATROPIUM BR 0.02% INH SOLN 0.5 MG/2.5 ML VIAL INHALATION ×2 (14:00→20:52)
[2022-08-27] MEDS: ALBUTEROL SULFATE NEB 2.5 MG/3 ML INH INHALATION ×2 (14:00→20:50)
[2022-08-27] MEDS: ASPIRIN 325 MG ENTERIC TABLET PO (17:06)
--- NOTE | 2022-08-27 17:59 | PM.IMPN ---
Progress Note: A&P Assessment and Plan (1) Shock: Code(s): R57.9 - Shock, unspecified Status: Acute Assessment and Plan: Patient transferred to ICU secondary to hypotension. He has a mixed picture and I suspect his hypotension is secondary to dehydration from his diarrhea, multiple cardiac medication that he is on, cardiogenic from cardiomyopathy and possible sepsis He states he has not had any bowel movement last 2 days and his diarrhea has resolved and he is completely asymptomatic at this time His chest x-ray suggest possible pneumonia but he does not have any respiratory symptoms. His WBC was elevated but he is afebrile Blood cultures have been ordered and are pending. Urine Legionella and pneumococcal antigen are pending Check UA and microscopy Check procalcitonin level Continue empiric antibiotics Rocephin and doxycycline Continue cautious IV fluids Continue to hold cardiac medications including diuretics beta-damian and Entresto Will give albumin instead of of crystalloid Continue IV fluids at low rate for next 24 hours (2) Sepsis: Qualifiers: Sepsis type: sepsis due to unspecified organism Code(s): A41.9 - Sepsis, unspecified organism Status: Acute Assessment and Plan: See above (3) Community acquired pneumonia: Code(s): J18.9 - Pneumonia, unspecified organism Status: Acute Assessment and Plan: See above (4) FRANCISCO (acute kidney injury): Code(s): N17.9 - Acute kidney failure, unspecified Status: Acute Assessment and Plan: Presented with acute kidney injury which likely secondary to dehydration hypovolemia His creatinine has improved and normalized Monitor urine output electrolytes and creatinine (5) NSTEMI (non-ST elevated myocardial infarction): Code(s): I21.4 - Non-ST elevation (NSTEMI) myocardial infarction Status: Acute Assessment and Plan: Patient has history of coronary disease status post CABG and PCI likely type 2 non STEMI secondary to hypotension and dehydration. Patient denies any chest pain or anginal equivalents Troponin elevated Cardiology consulted Continue aspirin heparin infusion Plavix and statin. Beta-damian is on hold due to hypotension Check echo (6) Ischemic cardiomyopathy: Code(s): I25.5 - Ischemic cardiomyopathy Status: Acute Assessment and Plan: History of ischemic cardiomyopathy with last recorded EF 16% on echocardiogram done in 2020 Will repeat echo at this time Conservative IV fluids (7) CAD (coronary artery disease): Code(s): I25.10 - Atherosclerotic heart disease of [place] coronary artery without angina pectoris Status: Acute Assessment and Plan: See above (8) Diabetes mellitus with hyperglycemia: Qualifiers: Diabetes mellitus type: type 2 Diabetes mellitus longterm insulin use: without longterm use Qualified Code(s): E11.65 - Type 2 diabetes mellitus with hyperglycemia Code(s): E11.65 - Type 2 diabetes mellitus with hyperglycemia Status: Acute Assessment and Plan: Sliding scale insulin (9) COPD (chronic obstructive pulmonary disease): Qualifiers: COPD type: unspecified COPD Qualified Code(s): J44.9 - Chronic obstructive pulmonary disease, unspecified Code(s): J44.9 - Chronic obstructive pulmonary disease, unspecified Status: Acute Assessment and Plan: Not in exacerbation Will order bronchodilators Plan DVT prophylaxis -heparin infusion Nutrition -heart healthy diet Code Status - Full Code Subjective Date/time seen: 08/27/22 17:59 Interval history: I saw the patient today, patient feels better, patient is still on Levophed, patient is afebrile. Patient denies chest pain, shortness of breath, abdomen pain, nausea vomiting Exam Narrative: General: Pt is alert awake and in NAD Lungs/Chest: Trachea central Clear BS B/L, bilateral occasional wheezing.
[2022-08-28] VITALS (24 sets, daily range): BP systolic 89–115; BP diastolic 45–70; PULSE 85–125; RESP 10–25; TEMP 35.8–36.6; O2SAT 92–98
[2022-08-28] MEDS: IPRATROPIUM BR 0.02% INH SOLN 0.5 MG/2.5 ML VIAL INHALATION ×4 (02:53→20:52)
[2022-08-28] MEDS: ALBUTEROL SULFATE NEB 2.5 MG/3 ML INH INHALATION ×4 (02:56→20:52)
[2022-08-28 05:12] LABS: Basophils Percent Auto 0.2 % (0.2-1.2); Eosinophils Absolute Auto 0.5 K/mm3 (0-0.3); Eosinophils Percent Auto 2.1 % (0-4.4); Hematocrit 26.2 % (42.0-52.0); Hemoglobin 8.5 g/dL (14.0-18.0); Immature Granulocyte Absolute 0.32 K/mm3 (0.00-0.031); Immature Granulocyte Percent A 1.3 % (0-0.5); Lymphocytes Absolute Auto 0.66 K/mm3 (0.9-3.2); Lymphocytes Percent Auto 2.6 % (18.3-44.2); Mean Corpuscular HGB Conc 32.4 g/dl (32-36); Mean Corpuscular Hemoglobin 29.2 pg (26-34); Mean Platelet Volume 9.4 fl (7.4-10.4); Monocytes Absolute Auto 1.9 K/mm3 (0.1-0.6); Monocytes Percent Auto 7.5 % (2.6-8.5); Neutrophils Absolute Auto 21.7 K/mm3 (1.3-6.7); Neutrophils Percent Auto 86.3 % (45.5-73.1); Platelet Count Result 622 k/mm3 (150-375); Red Blood Count 2.91 M/mm3 (4.6-6.20); Red Cell Distribution Width 13.6 % (11.5-14.5); White Blood Count 25.1 K/mm3 (4.5-10.0)
[2022-08-28 05:24] LABS: Alanine Aminotransferase 19 U/L (6-50); Albumin Level 2.7 g/dL (3.5-5.1); Alkaline Phosphatase 96 U/L (38-126); Anion Gap 5 mmol/L (8-16); Aspartate Amino Transferase 28 U/L (17-59); Bilirubin,Total 0.5 mg/dL (0.2-1.3); Blood Urea Nitrogen 18 mg/dL (9-20); Calcium 8.1 mg/dL (8.4-10.2); Carbon Dioxide 28 mmol/L (22-30); Chloride 94 mmol/L (98-107); Estimated CRCL calculation 67 ml/min; Estimated Glomerular Filt Rate > 60; Glucose 163 mg/dL (65-110); Potassium 3.5 mmol/L (3.4-5.0); Sodium 127 mmol/L (137-145)
[2022-08-28] MEDS: CENTRAL LINE FLUSH 10 ML IV PUSH ×3 (06:28→22:10)
[2022-08-28] MEDS: hetaSTARCH 6%/NACL 500 ML 250 ML IV CONT (08:46)
[2022-08-28] MEDS: allopurinoL 300 MG TABLET PO (08:47)
[2022-08-28] MEDS: CLOPIDOGREL BISULFATE 75 MG TABLET PO (08:47)
[2022-08-28] MEDS: AMIODARONE HCL 200 MG TABLET PO (08:47)
[2022-08-28] MEDS: ENOXAPARIN 40 MG/0.4 ML SYRINGE SUB-Q (08:47)
[2022-08-28] MEDS: cefTRIAXone 2 GM/NS 100 ML 2 GM/100 ML BAG IVPB (09:23)
[2022-08-28] MEDS: DOXYCYCLINE 100 MG/NS 100 ML 100 MG/100 ML BAG IVPB ×2 (10:04→22:10)
[2022-08-28] MEDS: SODIUM CHLORIDE 0.9% IV 1,000 ML 999 ML IV CONT (11:22)
--- NOTE | 2022-08-28 12:41 | WPDINTPN ---
Progress Note: A&P Assessment and Plan (1) Shock: Code(s): R57.9 - Shock, unspecified Status: Acute Assessment and Plan: Patient transferred to ICU secondary to hypotension. He has a mixed picture and I suspect his hypotension is secondary to dehydration from his diarrhea, multiple cardiac medication that he is on, cardiogenic from cardiomyopathy and possible sepsis He states he has not had any bowel movement last 2 days and his diarrhea has resolved and he is completely asymptomatic at this time His chest x-ray suggest possible pneumonia but he does not have any respiratory symptoms. His WBC was elevated but he is afebrile 08/26: Blood cultures -preliminary report is negative x2 Urine Legionella and pneumococcal antigen are pending -mycoplasma IgG is pending -UA did not show any infected chin - procalcitonin was mildly elevated at 0.7 -continue Rocephin and doxycycline (08/27) -lactic acid was 0.8 -patient received 1 L of IV fluid bolus this morning along with 500 mL of Hespan as he significantly good urine output and is in negative fluid balance Continue to hold cardiac medications including diuretics beta-damian and Entresto -will start albumin -will continue maintenance IV fluids follow 1000 mL -Renal function has normalized (2) Sepsis: Qualifiers: Sepsis type: sepsis due to unspecified organism Code(s): A41.9 - Sepsis, unspecified organism Status: Acute Assessment and Plan: See above (3) Community acquired pneumonia: Code(s): J18.9 - Pneumonia, unspecified organism Status: Acute Assessment and Plan: See above (4) FRANCISCO (acute kidney injury): Code(s): N17.9 - Acute kidney failure, unspecified Status: Acute Assessment and Plan: Presented with acute kidney injury which likely secondary to dehydration hypovolemia His creatinine has improved and normalized Monitor urine output electrolytes and creatinine (5) NSTEMI (non-ST elevated myocardial infarction): Code(s): I21.4 - Non-ST elevation (NSTEMI) myocardial infarction Status: Acute Assessment and Plan: Patient has history of coronary disease status post CABG and PCI likely type 2 non STEMI secondary to hypotension and dehydration. Patient denies any chest pain or anginal equivalents Troponin elevated Cardiology consulted Continue aspirin heparin infusion Plavix and statin. Beta-damian is on hold due to hypotension 08/27/2022 echocardiogram: Showed EF of 35-40%, LV chamber is severely enlarged, mild concentric LV thickness, left ventricular septal wall motion is abnormal with septal motion related to bundle branch block, grade 1 diastolic dysfunction, mild aortic valve sclerosis, mild mitral valve regurgitation, mild tricuspid valve regurgitation. No pulmonary hypertension (6) Ischemic cardiomyopathy: Code(s): I25.5 - Ischemic cardiomyopathy Status: Acute Assessment and Plan: History of ischemic cardiomyopathy with last recorded EF 16% on echocardiogram done in 2020 Repeat echo this admission as above Conservative IV fluids (7) CAD (coronary artery disease): Code(s): I25.10 - Atherosclerotic heart disease of [place] coronary artery without angina pectoris Status: Acute Assessment and Plan: See above (8) Diabetes mellitus with hyperglycemia: Qualifiers: Diabetes mellitus type: type 2 Diabetes mellitus terminal superintendent insulin use: without terminal superintendent use Qualified Code(s): E11.65 - Type 2 diabetes mellitus with hyperglycemia Code(s): E11.65 - Type 2 diabetes mellitus with hyperglycemia Status: Acute Assessment and Plan: Sliding scale insulin (9) COPD (chronic obstructive pulmonary disease): Qualifiers: COPD type: unspecified COPD Qualified Code(s): J44.9 - Chronic obstructive pulmonary disease, unspecified Code(s): J44.9 - Chronic obstructive pulmonary disease, unspecified Status: Ac
[2022-08-28] MEDS: ALBUMIN HUMAN 25% 25 GM/100 ML 100 ML IVPB ×3 (13:01→23:25)
--- NOTE | 2022-08-28 13:32 | PM.IMPN ---
Progress Note: A&P Assessment and Plan (1) Shock: Code(s): R57.9 - Shock, unspecified Status: Acute Assessment and Plan: (1) Shock: ?Code(s): R57.9 - Shock, unspecified ?Status:?Acute ?Assessment and Plan: Patient transferred to ICU secondary to hypotension. hypotension is secondary to multiple factors, dehydration from his diarrhea, multiple cardiac medication that he is on, cardiogenic from cardiomyopathy and possible sepsis He states he has not had any bowel movement last 2 days and his diarrhea has resolved and he is completely asymptomatic at this time His chest x-ray suggest possible pneumonia but he does not have any respiratory symptoms. His WBC was elevated but he is afebrile 08/26: Blood cultures -preliminary report is negative x2 Urine Legionella and pneumococcal antigen are pending -mycoplasma IgG is pending -UA did not show any infected chin - procalcitonin was mildly elevated at 0.7 -continue Rocephin and doxycycline (08/27) -lactic acid was 0.8 -patient received 1 L of IV fluid bolus this morning along with 500 mL of Hespan as he significantly good urine output and is in negative fluid balance Continue to hold cardiac medications including diuretics beta-damian and Entresto -will start albumin -will continue maintenance IV fluids follow 1000 mL -Renal function has normalized (3) Community acquired pneumonia: ?Code(s): J18.9 - Pneumonia, unspecified organism ?Status:?Acute ?Assessment and Plan: See above (4) FRANCISCO (acute kidney injury): ?Code(s): N17.9 - Acute kidney failure, unspecified ?Status:?Acute ?Assessment and Plan: Presented with acute kidney injury which likely secondary to dehydration hypovolemia His creatinine has improved and normalized Monitor urine output electrolytes and creatinine (5) NSTEMI (non-ST elevated myocardial infarction): ?Code(s): I21.4 - Non-ST elevation (NSTEMI) myocardial infarction ?Status:?Acute ?Assessment and Plan: Patient has history of coronary disease status post CABG and PCI ?likely type 2 non STEMI secondary to hypotension and dehydration.? Patient denies any chest pain or anginal equivalents Troponin elevated Cardiology consulted Continue aspirin heparin infusion Plavix and statin.? Beta-damian is on hold due to hypotension Check echo (6) Ischemic cardiomyopathy: ?Code(s): I25.5 - Ischemic cardiomyopathy ?Status:?Acute ?Assessment and Plan: History of ischemic cardiomyopathy with last recorded EF 16% on echocardiogram done in 2020 Will repeat echo at this time Conservative IV fluids (7) CAD (coronary artery disease): ?Code(s): I25.10 - Atherosclerotic heart disease of [place] coronary artery without angina pectoris ?Status:?Acute ?Assessment and Plan: See above (8) Diabetes mellitus with hyperglycemia: ?Qualifiers: ?Diabetes mellitus type:?type 2??Diabetes mellitus skilled nursing insulin use:?without manager long term care use? Qualified Code(s):?E11.65 - Type 2 diabetes mellitus with hyperglycemia ?Code(s): E11.65 - Type 2 diabetes mellitus with hyperglycemia ?Status:?Acute ?Assessment and Plan: Sliding scale insulin (9) COPD (chronic obstructive pulmonary disease): ?Qualifiers: ?COPD type:?unspecified COPD? Qualified Code(s):?J44.9 - Chronic obstructive pulmonary disease, unspecified ?Code(s): J44.9 - Chronic obstructive pulmonary disease, unspecified ?Status:?Acute ?Assessment and Plan: Not in exacerbation Will order bronchodilators Plan DVT prophylaxis -heparin infusion Nutrition -heart healthy diet Code Status - Full Code (2) Sepsis: Qualifiers: Sepsis type: sepsis due to unspecified organism Code(s): A41.9 - Sepsis, unspecified organism Status: Acute Assessment and Plan: See above (3) Community acquired pneumonia: Code(s): J18.9 - Pneumonia, unspecified organism Stat
[2022-08-28] MEDS: LACTATED RINGERS 1,000 ML 75 ML IV CONT (13:50)
--- NOTE | 2022-08-28 16:11 | PCPTNOTE ---
On 08/28/22, the student, DEANNA Stein, provided care and completed [facility] documentation on this patient. I have reviewed the student's documentation and agree with the findings.
[2022-08-28] MEDS: HYDROcodone/acetaminophen (*CRX) 7.5-325 MG TABLET 1 TAB PO (18:38)
[2022-08-28] MEDS: ASPIRIN 325 MG ENTERIC TABLET PO (18:38)
[2022-08-29] VITALS (28 sets, daily range): BP systolic 95–109; BP diastolic 54–75; PULSE 96–115; RESP 18–233; TEMP 36.4–36.8; O2SAT 90–100
[2022-08-29] MEDS: IPRATROPIUM BR 0.02% INH SOLN 0.5 MG/2.5 ML VIAL INHALATION ×4 (02:26→20:15)
[2022-08-29] MEDS: ALBUTEROL SULFATE NEB 2.5 MG/3 ML INH INHALATION ×4 (02:26→20:15)
[2022-08-29] MEDS: HYDROcodone/acetaminophen (*CRX) 7.5-325 MG TABLET 1 TAB PO ×2 (02:42→17:33)
[2022-08-29] MEDS: CENTRAL LINE FLUSH 10 ML IV PUSH ×3 (04:56→21:02)
[2022-08-29] MEDS: ALBUMIN HUMAN 25% 25 GM/100 ML 100 ML IVPB ×3 (04:56→17:25)
[2022-08-29 05:18] LABS: Basophils Percent Auto 0.1 % (0.2-1.2); Eosinophils Absolute Auto 0.5 K/mm3 (0-0.3); Eosinophils Percent Auto 3.1 % (0-4.4); Hematocrit 22.3 % (42.0-52.0); Hemoglobin 7.1 g/dL (14.0-18.0); Immature Granulocyte Absolute 0.14 K/mm3 (0.00-0.031); Immature Granulocyte Percent A 0.8 % (0-0.5); Lymphocytes Absolute Auto 0.39 K/mm3 (0.9-3.2); Lymphocytes Percent Auto 2.4 % (18.3-44.2); Mean Corpuscular HGB Conc 31.8 g/dl (32-36); Mean Corpuscular Hemoglobin 28.9 pg (26-34); Mean Corpuscular Volume 90.7 fl (80-100); Mean Platelet Volume 9.3 fl (7.4-10.4); Monocytes Absolute Auto 1.2 K/mm3 (0.1-0.6); Monocytes Percent Auto 7.2 % (2.6-8.5); Neutrophils Absolute Auto 14.3 K/mm3 (1.3-6.7); Neutrophils Percent Auto 86.4 % (45.5-73.1); Platelet Count Result 350 k/mm3 (150-375); Red Blood Count 2.46 M/mm3 (4.6-6.20); Red Cell Distribution Width 13.8 % (11.5-14.5); White Blood Count 16.6 K/mm3 (4.5-10.0)
[2022-08-29 05:46] LABS: Lactic Acid Reflex 0.8 mmol/L (0.7-2.0)
[2022-08-29 05:52] LABS: Alanine Aminotransferase 14 U/L (6-50); Albumin Level 2.5 g/dL (3.5-5.1); Alkaline Phosphatase 62 U/L (38-126); Anion Gap -2 mmol/L (8-16); Aspartate Amino Transferase 20 U/L (17-59); Bilirubin,Total 0.5 mg/dL (0.2-1.3); Blood Urea Nitrogen 12 mg/dL (9-20); Calcium 7.9 mg/dL (8.4-10.2); Carbon Dioxide 31 mmol/L (22-30); Chloride 97 mmol/L (98-107); Estimated CRCL calculation 76 ml/min; Estimated Glomerular Filt Rate > 60; Glucose 135 mg/dL (65-110); Magnesium 1.9 mg/dL (1.6-2.3); Phosphorus 2.5 mg/dL (2.5-4.5); Potassium 3.1 mmol/L (3.4-5.0); Sodium 126 mmol/L (137-145)
[2022-08-29] MEDS: allopurinoL 300 MG TABLET PO (08:48)
[2022-08-29] MEDS: POTASSIUM CHLORIDE 20 MEQ PACKET (FOR LIQUID) 40 MEQ PO (08:48)
[2022-08-29] MEDS: AMIODARONE HCL 200 MG TABLET PO (08:49)
[2022-08-29] MEDS: ROSUVASTATIN 10 MG TABLET 20 MG PO (08:49)
[2022-08-29 08:58] LABS: INR 1.5; Prothrombin Time 18.4 Seconds (11.1-14.7)
[2022-08-29 10:03] LABS: Folic Acid 5.2 ng/mL (2.76->20)
[2022-08-29 10:50] LABS: Iron 20 ug/dL (49-181)
[2022-08-29 11:01] LABS: Percent Iron Saturation 12 % (20-50)
[2022-08-29] MEDS: cefTRIAXone 2 GM/NS 100 ML 2 GM/100 ML BAG IVPB (11:19)
[2022-08-29] MEDS: DOXYCYCLINE 100 MG/NS 100 ML 100 MG/100 ML BAG IVPB ×2 (11:20→22:18)
[2022-08-29] MEDS: SODIUM CHLORIDE 0.9% IV 250 ML 30 ML IV CONT (12:00)
--- NOTE | 2022-08-29 12:08 | WPDINTPN ---
Progress Note: A&P Assessment and Plan (1) Anemia: Qualifiers: Anemia type: unspecified type Qualified Code(s): D64.9 - Anemia, unspecified Code(s): D64.9 - Anemia, unspecified Status: Inactive Assessment and Plan: Patient also dropped his hemoglobin to 7.1 this morning (13.8 on admission on 08/24/2022). -folic acid and vitamin B12 levels are normal -check stool for occult blood -iron panel with low iron, low TIBC and low % saturation -will 1 dose of Venofer -will transfuse 1 unit of packed RBCs -recheck H&H post transfusion -will obtain CT scan of the abdomen and pelvis to rule out retroperitoneal bleed as patient was on aspirin, Lovenox, Plavix (2) Shock: Code(s): R57.9 - Shock, unspecified Status: Acute Assessment and Plan: Patient transferred to ICU secondary to hypotension. He has a mixed picture and I suspect his hypotension is secondary to dehydration from his diarrhea, multiple cardiac medication that he is on, cardiogenic from cardiomyopathy and possible sepsis He states he has not had any bowel movement last 2 days and his diarrhea has resolved and he is completely asymptomatic at this time His chest x-ray suggest possible pneumonia but he does not have any respiratory symptoms. His WBC was elevated but he is afebrile 08/26: Blood cultures -preliminary report is negative x2 -Urine Legionella and pneumococcal antigen are pending -mycoplasma IgG is pending -UA did not show any infected chin - procalcitonin was mildly elevated at 0.7 -continue Rocephin and doxycycline (08/27) - 08/29 - lactic acid was 0.8 -patient has received adequate IV fluids -OFF Levophed his 9:30 a.m. on 08/28/2022 -Continue to hold cardiac medications including diuretics beta-damian and Entresto due to borderline blood pressures -status post albumin -off all IV fluids -Renal function has normalized (3) Sepsis: Qualifiers: Sepsis type: sepsis due to unspecified organism Code(s): A41.9 - Sepsis, unspecified organism Status: Acute Assessment and Plan: See above (4) Community acquired pneumonia: Code(s): J18.9 - Pneumonia, unspecified organism Status: Acute Assessment and Plan: Chest x-ray this morning: Airspace opacities in the lower lung zones with mild worsening on the right, consistent with atelectasis versus pneumonia. Cardiomegaly. Continue antibiotics as above (5) FRANCISCO (acute kidney injury): Code(s): N17.9 - Acute kidney failure, unspecified Status: Acute Assessment and Plan: Presented with acute kidney injury which likely secondary to dehydration hypovolemia His creatinine has improved and normalized Monitor urine output electrolytes and creatinine (6) NSTEMI (non-ST elevated myocardial infarction): Code(s): I21.4 - Non-ST elevation (NSTEMI) myocardial infarction Status: Acute Assessment and Plan: Patient has history of coronary disease status post CABG and PCI likely type 2 non STEMI secondary to hypotension and dehydration. Patient denies any chest pain or anginal equivalents Troponin elevated Cardiology consulted HOLD aspirin heparin infusion Plavix due to anemia -continue statin. -Hold beta-damian due to hypotension 08/27/2022 echocardiogram: Showed EF of 35-40%, LV chamber is severely enlarged, mild concentric LV thickness, left ventricular septal wall motion is abnormal with septal motion related to bundle branch block, grade 1 diastolic dysfunction, mild aortic valve sclerosis, mild mitral valve regurgitation, mild tricuspid valve regurgitation. No pulmonary hypertension (7) Ischemic cardiomyopathy: Code(s): I25.5 - Ischemic cardiomyopathy Status: Acute Assessment and Plan: History of ischemic cardiomyopathy with last recorded EF 16% on echocardiogram done in 2020 Repeat echo this admission as above Off IV fluids at this time (8) CAD (coronary artery disease): Code(
[2022-08-29] MEDS: PANTOPRAZOLE SODIUM IV 40 MG VIAL IV PUSH ×2 (12:46→21:02)
--- NOTE | 2022-08-29 13:52 | PM.IMPN ---
Progress Note: A&P Assessment and Plan (1) Anemia: Qualifiers: Anemia type: unspecified type Qualified Code(s): D64.9 - Anemia, unspecified Code(s): D64.9 - Anemia, unspecified Status: Inactive Assessment and Plan: No obvious bleeding, patient has some black emesis, bloody stool, Received 1 packed RBC in the issue Patient is found to have iron deficiency Patient received heparin supplement Follow-up CT abdomen pelvis folic acid and vitamin B12 levels are normal Follow-up stool for occult blood Follow hemoglobin, transfuse. (2) Shock: Code(s): R57.9 - Shock, unspecified Status: Acute Assessment and Plan: Patient transferred to ICU secondary to hypotension. He has a mixed picture and I suspect his hypotension is secondary to dehydration from his diarrhea, multiple cardiac medication that he is on, cardiogenic from cardiomyopathy and possible sepsis His chest x-ray suggest possible pneumonia but he does not have any respiratory symptoms. His WBC was elevated but he is afebrile /: Blood cultures -preliminary report is negative x2 -Urine Legionella and pneumococcal antigen are pending -mycoplasma IgG is pending -Continue to hold cardiac medications including diuretics beta-damian and Entresto due to borderline blood pressures -status post albumin -off all IV fluids -Renal function has normalized (3) Sepsis: Qualifiers: Sepsis type: sepsis due to unspecified organism Code(s): A41.9 - Sepsis, unspecified organism Status: Acute Assessment and Plan: See above (4) Community acquired pneumonia: Code(s): J18.9 - Pneumonia, unspecified organism Status: Acute Assessment and Plan: Chest x-ray this morning: Airspace opacities in the lower lung zones with mild worsening on the right, consistent with atelectasis versus pneumonia. Cardiomegaly. Continue antibiotics as above (5) FRANCISCO (acute kidney injury): Code(s): N17.9 - Acute kidney failure, unspecified Status: Acute Assessment and Plan: Presented with acute kidney injury which likely secondary to dehydration hypovolemia His creatinine has improved and normalized Monitor urine output electrolytes and creatinine (6) NSTEMI (non-ST elevated myocardial infarction): Code(s): I21.4 - Non-ST elevation (NSTEMI) myocardial infarction Status: Acute Assessment and Plan: Patient has history of coronary disease status post CABG and PCI likely type 2 non STEMI secondary to hypotension and dehydration. Patient denies any chest pain or anginal equivalents Troponin elevated Cardiology consulted HOLD aspirin heparin infusion Plavix due to anemia -continue statin. -Hold beta-damian due to hypotension 08/27/2022 echocardiogram: Showed EF of 35-40%, grade 1 diastolic dysfunction, mild aortic valve sclerosis, mild mitral valve regurgitation, mild tricuspid valve regurgitation. No pulmonary hypertension (7) Ischemic cardiomyopathy: Code(s): I25.5 - Ischemic cardiomyopathy Status: Acute Assessment and Plan: History of ischemic cardiomyopathy with last recorded EF 16% on echocardiogram done in 2020 Repeat echo this admission as above Off IV fluids at this time (8) CAD (coronary artery disease): Code(s): I25.10 - Atherosclerotic heart disease of [place] coronary artery without angina pectoris Status: Acute Assessment and Plan: See above (9) Diabetes mellitus with hyperglycemia: Qualifiers: Diabetes mellitus type: type 2 Diabetes mellitus terminal gauger insulin use: without [place] [facility] use Qualified Code(s): E11.65 - Type 2 diabetes mellitus with hyperglycemia Code(s): E11.65 - Type 2 diabetes mellitus with hyperglycemia Status: Acute Assessment and Plan: Continue Accu-Cheks (10) COPD (chronic obstructive pulmonary disease): Qualifiers: COPD type: unspecified COPD Qualified Code(s
[2022-08-29] MEDS: IRON SUCROSE COMPLEX 200 MG in SODIUM CHLORIDE 0.9% IV 50 ML 120 MG IVPB (15:07)
[2022-08-29 16:36] LABS: Hematocrit 25.2 % (42.0-52.0); Hemoglobin 8.2 g/dL (14.0-18.0); Mean Corpuscular HGB Conc 32.5 g/dl (32-36); Mean Corpuscular Hemoglobin 29.6 pg (26-34); Mean Platelet Volume 9.5 fl (7.4-10.4); Platelet Count Result 351 k/mm3 (150-375); Red Blood Count 2.77 M/mm3 (4.6-6.20); Red Cell Distribution Width 13.7 % (11.5-14.5); White Blood Count 16.7 K/mm3 (4.5-10.0)
[2022-08-29 18:38] LABS: Pneumococcal Antigen Urine Not Detected (Not Detected)
[2022-08-29] MEDS: MELATONIN 5 MG TABLET PO (22:18)
[2022-08-30] VITALS (22 sets, daily range): BP systolic 88–112; BP diastolic 56–73; PULSE 109–128; RESP 17–32; TEMP 36.4–36.7; O2SAT 90–97
[2022-08-30] MEDS: HYDROcodone/acetaminophen (*CRX) 7.5-325 MG TABLET 1 TAB PO ×3 (00:39→22:18)
[2022-08-30] MEDS: IPRATROPIUM BR 0.02% INH SOLN 0.5 MG/2.5 ML VIAL INHALATION ×4 (01:55→20:19)
[2022-08-30] MEDS: ALBUTEROL SULFATE NEB 2.5 MG/3 ML INH INHALATION ×2 (01:55→08:56)
[2022-08-30] MEDS: CENTRAL LINE FLUSH 10 ML IV PUSH ×3 (04:23→20:26)
[2022-08-30 04:34] LABS: Hematocrit 26.9 % (42.0-52.0); Hemoglobin 8.7 g/dL (14.0-18.0); Mean Corpuscular HGB Conc 32.3 g/dl (32-36); Mean Corpuscular Hemoglobin 29.8 pg (26-34); Mean Corpuscular Volume 92.1 fl (80-100); Mean Platelet Volume 9.7 fl (7.4-10.4); Platelet Count Result 468 k/mm3 (150-375); Red Blood Count 2.92 M/mm3 (4.6-6.20); Red Cell Distribution Width 14.2 % (11.5-14.5); White Blood Count 25.8 K/mm3 (4.5-10.0)
[2022-08-30 04:54] LABS: Alanine Aminotransferase 15 U/L (6-50); Albumin Level 3.1 g/dL (3.5-5.1); Alkaline Phosphatase 67 U/L (38-126); Anion Gap 3 mmol/L (8-16); Aspartate Amino Transferase 23 U/L (17-59); Bilirubin,Total 0.8 mg/dL (0.2-1.3); Blood Urea Nitrogen 13 mg/dL (9-20); Calcium 8.5 mg/dL (8.4-10.2); Carbon Dioxide 28 mmol/L (22-30); Chloride 96 mmol/L (98-107); Estimated CRCL calculation 66 ml/min; Estimated Glomerular Filt Rate > 60; Glucose 157 mg/dL (65-110); Magnesium 1.9 mg/dL (1.6-2.3); Phosphorus 2.7 mg/dL (2.5-4.5); Sodium 127 mmol/L (137-145)
[2022-08-30] MEDS: LACTATED RINGERS 1,000 ML 999 ML IV CONT (04:55)
[2022-08-30] MEDS: SODIUM CHLORIDE 0.9% IV 1,000 ML 100 ML IV CONT (07:59)
[2022-08-30 08:04] LABS: Albumin Level 2.9 g/dL (3.5-5.1)
[2022-08-30] MEDS: AMIODARONE HCL 200 MG TABLET PO (08:31)
[2022-08-30] MEDS: allopurinoL 300 MG TABLET PO (08:31)
[2022-08-30] MEDS: cefTRIAXone 2 GM/NS 100 ML 2 GM/100 ML BAG IVPB ×2 (08:32→20:26)
[2022-08-30] MEDS: PANTOPRAZOLE SODIUM IV 40 MG VIAL IV PUSH ×2 (08:33→20:26)
--- NOTE | 2022-08-30 09:03 | WPDGICN ---
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 When patient is more stable an EGD will be considered early this next week. In the interim paracentesis with cytology may be of benefit. (2) Anemia: Code(s): D64.9 - Anemia, unspecified Status: Acute Assessment and Plan: Patient with chronic anemia. Iron indices appeared most consistent with anemia of chronic disease. Plan to check stool occult blood given the abnormal CT scan findings. (3) Community acquired pneumonia: Code(s): J18.9 - Pneumonia, unspecified organism Status: Acute Assessment and Plan: Patient in the ICU with apparent sepsis. Elevated white count noted. Pneumonia identified on imaging studies may be etiology for this. (4) Elevated troponin: Code(s): R77.8 - Other specified abnormalities of plasma proteins Status: Acute Assessment and Plan: Patient reported to have elevated troponin levels. Workup for possible AK in progress. (5) Ascites: Code(s): R18.8 - Other ascites Status: Acute Assessment and Plan: The ascites evident on imaging studies is suspected to be malignant. Paracentesis may be beneficial also for diagnosis if cytology can be obtained. (6) Metastasis to liver: Code(s): C78.7 - Secondary malignant neoplasm of liver and intrahepatic bile duct Status: Acute Assessment and Plan: Liver lesions identified on CT scan her suspicious for metastases. Plan for paracentesis in ultimately an EGD. If this fails to identify source then liver biopsy can be considered after this is accomplished. (7) Gastric mass: Code(s): K31.89 - Other diseases of stomach and duodenum Status: Acute Assessment and Plan: Thickening to the stomach on CT scan imaging raises the question of possible gastric lesion. Plan for EGD when patient is more stable for biopsy. Perhaps early next week. GI Consult Note Consult date/time: 08/30/22 09:03 Reason for consult: Abnormal CT scan HPI: Mahendra Fletcher is a 81 year old male I am asked to see because of abnormal CT scan. Patient has a history of COPD and atherosclerotic heart disease. Apparently over the last several days developed nausea and vomiting general malaise. Patient states he has not had a bowel movement for 4-5 days however records suggest when he went to [facility] he had loose diarrhea stools. Patient ultimately was found to have elevated troponins and a low blood pressure. He was placed on pressor agents and transferred [facility]. At our hospital he was noted to have abdominal distention and normochromic normocytic anemia. A CT scan of the abdomen was performed and identified patient is having liver metastases peritoneal carcinomatosis, ascites and thickening to the stomach raising the question of a gastric primary lesion. Patient denies any abdominal pain. He denies any bleeding. Currently off pressor agents he is anxious to go home. Chest x-ray suggested pneumonia and patient has been placed in the ICU. Review of Systems Review of Systems: Review of systems noncontributory. [facility] Past Medical History Medical History Bilateral carotid artery disease With complete occlusion of the left carotid, right carotid endarterectomy 2004 CAD (coronary artery disease) COPD (chronic obstructive pulmonary disease) Diabetes mellitus Essential (primary) hypertension Gout, unspecified Hypertension with heart disease Ischemic cardiomyopathy EF of 15-20% on limited echo 08/10/2020 which had worsened from echocardiogram in April with EF 30-35%. He has life vest in pl
--- NOTE | 2022-08-30 10:29 | ECG_ITS ---
Measurements Intervals [place] Rate: 120 P: -33 PA: 87 QRS: -46 QRSD: 188 T: 103 QT: 380 QTc: 537 Interpretive Statements ATRIAL TACHYCARDIA WITH RAPID VENTRICULAR RESPONSE VENTRICULAR PREMATURE COMPLEX LEFT AXIS DEVIATION LEFT BUNDLE BRANCH BLOCK BASELINE WANDER- AVR ABNORMAL ECG COMPARED TO ECG 08/26/2022 18:04:42 ATRIAL TACHYCARDIA NOW PRESENT Electronically Signed On 08-30-2022 18:37:09 CDT by John Zurita D.O.
[2022-08-30] MEDS: DOXYCYCLINE 100 MG/NS 100 ML 100 MG/100 ML BAG IVPB ×2 (11:25→22:18)
[2022-08-30] MEDS: ALBUMIN HUMAN 25% 25 GM/100 ML 100 ML IVPB ×3 (11:25→23:27)
--- NOTE | 2022-08-30 13:19 | WPDINTPN ---
Progress Note: A&P Assessment and Plan (1) Anemia: Qualifiers: Anemia type: unspecified type Qualified Code(s): D64.9 - Anemia, unspecified Code(s): D64.9 - Anemia, unspecified Status: Inactive Assessment and Plan: Patient also dropped his hemoglobin to 7.1 this morning (13.8 on admission on 08/24/2022). -folic acid and vitamin B12 levels are normal -stool for occult blood has been ordered -iron panel with low iron, low TIBC and low % saturation -received 1 dose of Venofe on 08/29 -08/29: transfused 1 unit of packed RBCs -hemoglobin is stable this morning 08/29/2022: CT abdomen and pelvis showed peritoneal carcinomatosis and liver masses, consistent with metastatic disease, most likely from sepsis a stomach primary. Large volume ascites, paracentesis is recommended for diagnosis, small pleural effusion (2) Shock: Code(s): R57.9 - Shock, unspecified Status: Acute Assessment and Plan: Patient transferred to ICU secondary to hypotension. He has a mixed picture and I suspect his hypotension is secondary to dehydration from his diarrhea, multiple cardiac medication that he is on, cardiogenic from cardiomyopathy and possible sepsis He states he has not had any bowel movement last 2 days and his diarrhea has resolved and he is completely asymptomatic at this time His chest x-ray suggest possible pneumonia but he does not have any respiratory symptoms. His WBC was elevated but he is afebrile 08/26: Blood cultures -preliminary report is negative x2 -Urine Legionella pending -urine pneumococcal antigen not detected -mycoplasma IgG is pending -UA did not show any infection - procalcitonin was mildly elevated at 0.7 -continue Rocephin and doxycycline (08/27) - 08/29 - lactic acid was 0.8 -patient has received adequate IV fluids -OFF Levophed his 9:30 a.m. on 08/28/2022 -Continue to hold cardiac medications including diuretics beta-damian and Entresto due to borderline blood pressures 08/30: Hypotension requiring fluid bolus, and also start albumin . elevated WBC count, will start vancomycin -Renal function has normalized (3) Sepsis: Qualifiers: Sepsis type: sepsis due to unspecified organism Code(s): A41.9 - Sepsis, unspecified organism Status: Acute Assessment and Plan: See above (4) Community acquired pneumonia: Code(s): J18.9 - Pneumonia, unspecified organism Status: Acute Assessment and Plan: Chest x-ray this morning: Airspace opacities in the lower lung zones with mild worsening on the right, consistent with atelectasis versus pneumonia. Cardiomegaly. Continue antibiotics as above (5) FRANCISCO (acute kidney injury): Code(s): N17.9 - Acute kidney failure, unspecified Status: Acute Assessment and Plan: Presented with acute kidney injury which likely secondary to dehydration hypovolemia His creatinine has normalized Monitor urine output electrolytes and creatinine (6) NSTEMI (non-ST elevated myocardial infarction): Code(s): I21.4 - Non-ST elevation (NSTEMI) myocardial infarction Status: Acute Assessment and Plan: Patient has history of coronary disease status post CABG and PCI likely type 2 non STEMI secondary to hypotension and dehydration. Patient denies any chest pain or anginal equivalents Troponin elevated Cardiology consulted HOLD aspirin, heparin infusion Plavix due to anemia -continue statin. -Hold beta-damian due to hypotension 08/27/2022 echocardiogram: Showed EF of 35-40%, LV chamber is severely enlarged, mild concentric LV thickness, left ventricular septal wall motion is abnormal with septal motion related to bundle branch block, grade 1 diastolic dysfunction, mild aortic valve sclerosis, mild mitral valve regurgitation, mild tricuspid valve regurgitation. No pulmonary hypertension (7) Ischemic cardiomyopathy: Code(s): I25.5 - Ischemic cardiomyopathy Status: Acute
[2022-08-30] MEDS: LEVALBUTEROL NEB 1.25 MG/3 ML 0.63 MG INHALATION ×2 (13:42→20:19)
--- NOTE | 2022-08-30 16:15 | PM.IMPN ---
Progress Note: A&P Assessment and Plan (1) Anemia: Qualifiers: Anemia type: unspecified type Qualified Code(s): D64.9 - Anemia, unspecified Code(s): D64.9 - Anemia, unspecified Status: Inactive Assessment and Plan: Patient also dropped his hemoglobin to 7.1 this morning (13.8 on admission on 08/24/2022). Patient received blood transfusion, Order CT abdomen pelvis to rule out intra-abdominal hematoma CT abdomen pelvis revealed no hematoma, but it showed peritoneal carcinomatosis and liver masses, consistent with metastatic disease, possible stomach is the primary. Large volume ascites, paracentesis is recommended for diagnosis, small pleural effusion Consult heme oncologist for evaluation (2) Shock: Code(s): R57.9 - Shock, unspecified Status: Acute Assessment and Plan: Patient transferred to ICU secondary to hypotension. He has a mixed picture and I suspect his hypotension is secondary to dehydration from his diarrhea, multiple cardiac medication that he is on, cardiogenic from cardiomyopathy and possible sepsis He states he has not had any bowel movement last 2 days and his diarrhea has resolved and he is completely asymptomatic at this time His chest x-ray suggest possible pneumonia but he does not have any respiratory symptoms. His WBC was elevated but he is afebrile 08/26: Blood cultures -preliminary report is negative x2 -Urine Legionella pending -urine pneumococcal antigen not detected -mycoplasma IgG is pending -UA did not show any infection - procalcitonin was mildly elevated at 0.7 -continue Rocephin and doxycycline (08/27) 08/30: Hypotension requiring fluid bolus, and also start albumin . elevated WBC count, will start vancomycin -Renal function has normalized (3) Sepsis: Qualifiers: Sepsis type: sepsis due to unspecified organism Code(s): A41.9 - Sepsis, unspecified organism Status: Acute Assessment and Plan: See above (4) Community acquired pneumonia: Code(s): J18.9 - Pneumonia, unspecified organism Status: Acute Assessment and Plan: Chest x-ray this morning: Airspace opacities in the lower lung zones with mild worsening on the right, consistent with atelectasis versus pneumonia. Cardiomegaly.Continue antibiotics as above (5) FRANCISCO (acute kidney injury): Code(s): N17.9 - Acute kidney failure, unspecified Status: Acute Assessment and Plan: Presented with acute kidney injury which likely secondary to dehydration hypovolemia His creatinine has normalized Monitor urine output electrolytes and creatinine (6) NSTEMI (non-ST elevated myocardial infarction): Code(s): I21.4 - Non-ST elevation (NSTEMI) myocardial infarction Status: Acute Assessment and Plan: Patient has history of coronary disease status post CABG and PCI likely type 2 non STEMI secondary to hypotension and dehydration. Patient denies any chest pain or anginal equivalents Troponin elevated Cardiology consulted HOLD aspirin, heparin infusion Plavix due to anemia -continue statin. -Hold beta-damian due to hypotension 08/27/2022 echocardiogram: Showed EF of 35-40%, LV chamber is severely enlarged, mild concentric LV thickness, left ventricular septal wall motion is abnormal with septal motion related to bundle branch block, grade 1 diastolic dysfunction, mild aortic valve sclerosis, mild mitral valve regurgitation, mild tricuspid valve regurgitation. No pulmonary hypertension (7) Ischemic cardiomyopathy: Code(s): I25.5 - Ischemic cardiomyopathy Status: Acute Assessment and Plan: History of ischemic cardiomyopathy with last recorded EF 16% on echocardiogram done in 2020 Repeat echo this admission as above Off IV fluids at this time (8) CAD (coronary artery disease): Code(s): I25.10 - Atherosclerotic heart disease of [place] coronary artery without angina pectoris Status: Acute Assessme
[2022-08-30] MEDS: AMIODARONE 150 MG/D5W 100 ML 150 MG/100 ML BAG 600 MG IV CONT (18:50)
[2022-08-31] VITALS (24 sets, daily range): BP systolic 91–126; BP diastolic 52–77; PULSE 22–122; RESP 16–30; TEMP 36.4–36.6; O2SAT 87–100
[2022-08-31] MEDS: IPRATROPIUM BR 0.02% INH SOLN 0.5 MG/2.5 ML VIAL INHALATION ×4 (03:01→20:00)
[2022-08-31] MEDS: LEVALBUTEROL NEB 1.25 MG/3 ML 0.63 MG INHALATION ×4 (03:01→20:00)
[2022-08-31] MEDS: polyethylene glycoL 3350 17 GM POWD.PACK PO (03:15)
[2022-08-31 04:18] LABS: Hematocrit 24.6 % (42.0-52.0); Hemoglobin 7.8 g/dL (14.0-18.0); Mean Corpuscular HGB Conc 31.7 g/dl (32-36); Mean Corpuscular Hemoglobin 29.3 pg (26-34); Mean Corpuscular Volume 92.5 fl (80-100); Mean Platelet Volume 9.7 fl (7.4-10.4); Platelet Count Result 419 k/mm3 (150-375); Red Blood Count 2.66 M/mm3 (4.6-6.20); Red Cell Distribution Width 14.3 % (11.5-14.5); White Blood Count 23.7 K/mm3 (4.5-10.0)
[2022-08-31 04:27] LABS: Alanine Aminotransferase 14 U/L (6-50); Albumin Level 3.4 g/dL (3.5-5.1); Alkaline Phosphatase 56 U/L (38-126); Anion Gap 4 mmol/L (8-16); Aspartate Amino Transferase 21 U/L (17-59); Bilirubin,Total 0.4 mg/dL (0.2-1.3); Blood Urea Nitrogen 22 mg/dL (9-20); Calcium 8.6 mg/dL (8.4-10.2); Carbon Dioxide 28 mmol/L (22-30); Chloride 96 mmol/L (98-107); Estimated CRCL calculation 75 ml/min; Estimated Glomerular Filt Rate > 60; Glucose 170 mg/dL (65-110); Magnesium 1.9 mg/dL (1.6-2.3); Potassium 3.7 mmol/L (3.4-5.0); Sodium 128 mmol/L (137-145)
[2022-08-31] MEDS: ALBUMIN HUMAN 25% 25 GM/100 ML 100 ML IVPB ×3 (05:36→18:56)
[2022-08-31] MEDS: CENTRAL LINE FLUSH 10 ML IV PUSH ×3 (05:37→21:21)
[2022-08-31] MEDS: PANTOPRAZOLE SODIUM IV 40 MG VIAL IV PUSH ×2 (08:16→21:18)
[2022-08-31] MEDS: allopurinoL 300 MG TABLET PO (08:16)
[2022-08-31] MEDS: ROSUVASTATIN 10 MG TABLET 20 MG PO (08:16)
[2022-08-31] MEDS: AMIODARONE HCL 200 MG TABLET PO (08:16)
[2022-08-31] MEDS: VANCOMYCIN 1,250 MG/NS 250 ML 1,250 MG/250 ML BAG 166.67 MG IVPB (08:17)
[2022-08-31] MEDS: cefTRIAXone 2 GM/NS 100 ML 2 GM/100 ML BAG IVPB (08:17)
--- NOTE | 2022-08-31 08:34 | WPDINTPN ---
Progress Note: A&P Assessment and Plan (1) Anemia: Qualifiers: Anemia type: unspecified type Qualified Code(s): D64.9 - Anemia, unspecified Code(s): D64.9 - Anemia, unspecified Status: Inactive Assessment and Plan: Patient also dropped his hemoglobin to 7.1 this morning (13.8 on admission on 08/24/2022). -folic acid and vitamin B12 levels are normal -stool for occult blood has been ordered -iron panel with low iron, low TIBC and low % saturation -received 1 dose of Venofe on 08/29 -08/29: transfused 1 unit of packed RBCs -hemoglobin slowly trending down -continue to monitor - d/w GI, EGD this week 08/29/2022: CT abdomen and pelvis showed peritoneal carcinomatosis and liver masses, consistent with metastatic disease, most likely from sepsis a stomach primary. Large volume ascites, paracentesis is recommended for diagnosis, small pleural effusion (2) Shock: Code(s): R57.9 - Shock, unspecified Status: Acute Assessment and Plan: Patient transferred to ICU secondary to hypotension. He has a mixed picture and I suspect his hypotension is secondary to dehydration from his diarrhea, multiple cardiac medication that he is on, cardiogenic from cardiomyopathy and possible sepsis He states he has not had any bowel movement last 2 days and his diarrhea has resolved and he is completely asymptomatic at this time His chest x-ray suggest possible pneumonia but he does not have any respiratory symptoms. His WBC was elevated but he is afebrile 08/26: Blood cultures -preliminary report is negative x2 -Urine Legionella pending -urine pneumococcal antigen not detected -mycoplasma IgG is pending -UA did not show any infection - procalcitonin was mildly elevated at 0.7 -continue Rocephin and doxycycline (08/27), Vancomycin (08/30) - 08/29 - lactic acid was 0.8 -patient has received adequate IV fluids -OFF Levophed his 9:30 a.m. on 08/28/2022 -Continue to hold cardiac medications including diuretics beta-damian and Entresto due to borderline blood pressures 08/30: Hypotension requiring fluid bolus, and albumin . elevated WBC count -Renal function has normalized (3) Sepsis: Qualifiers: Sepsis type: sepsis due to unspecified organism Code(s): A41.9 - Sepsis, unspecified organism Status: Acute Assessment and Plan: See above (4) Community acquired pneumonia: Code(s): J18.9 - Pneumonia, unspecified organism Status: Acute Assessment and Plan: Chest x-ray this morning: Airspace opacities in the lower lung zones with mild worsening on the right, consistent with atelectasis versus pneumonia. Cardiomegaly. Continue antibiotics as above (5) FRANCISCO (acute kidney injury): Code(s): N17.9 - Acute kidney failure, unspecified Status: Acute Assessment and Plan: Presented with acute kidney injury which likely secondary to dehydration hypovolemia His creatinine has normalized Monitor urine output electrolytes and creatinine (6) NSTEMI (non-ST elevated myocardial infarction): Code(s): I21.4 - Non-ST elevation (NSTEMI) myocardial infarction Status: Acute Assessment and Plan: Patient has history of coronary disease status post CABG and PCI likely type 2 non STEMI secondary to hypotension and dehydration. Patient denies any chest pain or anginal equivalents Troponin elevated Cardiology consulted HOLD aspirin, heparin infusion Plavix due to anemia -continue statin. -Hold beta-damian due to hypotension 08/27/2022 echocardiogram: Showed EF of 35-40%, LV chamber is severely enlarged, mild concentric LV thickness, left ventricular septal wall motion is abnormal with septal motion related to bundle branch block, grade 1 diastolic dysfunction, mild aortic valve sclerosis, mild mitral valve regurgitation, mild tricuspid valve regurgitation. No pulmonary hypertension Will have cardiology evaluate the pt (7) Ischemic cardiomyopathy:
--- NOTE | 2022-08-31 09:51 | PCOTNOTE ---
Attempted to see Patient for OT treatment session at this time. Patient declined to participate due to stating, its to early, I haven't woke up yet or eaten, come back later .
--- NOTE | 2022-08-31 12:00 | PCSTNOTE ---
Please refer to the Bedside Swallow Evaluation in the EMR. Please note, silent aspiration cannot be ruled out at bedside.
--- NOTE | 2022-08-31 12:01 | WPDGIPROGNO ---
Progress Note: A&P Assessment and Plan (1) Gastric mass: Code(s): K31.89 - Other diseases of stomach and duodenum Status: Acute Assessment and Plan: Abnormal CT scan suggest gastric mass as a potential primary lesion. EGD is anticipated but will be deferred until his blood pressure has improved. I discussed case with cryptologic linguist. Hopefully EGD can be accomplished later this week. (2) Metastasis to liver: Code(s): C78.7 - Secondary malignant neoplasm of liver and intrahepatic bile duct Status: Acute Assessment and Plan: CT scan suggests liver metastases along with carcinomatosis and ascites. (3) Ascites: Code(s): R18.8 - Other ascites Status: Acute Assessment and Plan: Ascites felt to be malignant by imaging. Suggest paracentesis for cytology and diagnosis. May also help give symptom relief. (4) Abnormal CT scan: Code(s): R93.89 - Abnormal findings on diagnostic imaging of other specified body structures Status: Acute (5) Shock: Code(s): R57.9 - Shock, unspecified Status: Acute (6) Community acquired pneumonia: Code(s): J18.9 - Pneumonia, unspecified organism Status: Acute (7) Ischemic cardiomyopathy: Code(s): I25.5 - Ischemic cardiomyopathy Status: Acute Subjective Date/time seen: 08/31/22 12:01 Interval history: Patient is alert comfortable this morning. ICU staff reports blood pressure continues to fluctuate. No signs of bleeding. Less short of breath. Review of Systems Review of Systems: Review of systems noncontributory. Exam Narrative: Physical exam reveals patient be alert. He is anicteric. Lungs are clear. Heart without murmur. Abdomen is somewhat doughy. Modest distention. No localized masses or tenderness. Objective Data Vital Signs Vital Signs: Vital Signs - 24 hr 08/30/22 13:43 08/30/22 13:57 08/30/22 14:00 Temperature Pulse Rate 123 H 116 H 123 H Respiratory Rate 22 H 21 H Blood Pressure Pulse Oximetry Oxygen Delivery Oxygen Flow Rate 08/30/22 14:00 08/30/22 16:00 08/30/22 16:00 Temperature 97.8 F Pulse Rate 123 H 114 H 114 H Respiratory Rate 28 H 26 H 21 H Blood Pressure 100/61 101/63 Pulse Oximetry 92 92 92 Oxygen Delivery Room Air Oxygen Flow Rate 08/30/22 16:00 08/30/22 18:00 08/30/22 18:00 Temperature Pulse Rate 124 H 123 H 124 H Respiratory Rate 32 H Blood Pressure 88/58 L Pulse Oximetry 92 Oxygen Delivery Oxygen Flow Rate 08/30/22 18:50 08/30/22 20:20 08/30/22 20:20 Temperature Pulse Rate 122 H 117 H Respiratory Rate 23 H Blood Pressure 104/65 Pulse Oximetry 92 Oxygen Delivery Room Air Oxygen Flow Rate 08/30/22 20:32 08/30/22 20:00 08/30/22 20:00 Temperature Pulse Rate 121 H 122 H Respiratory Rate 22 H Blood Pressure Pulse Oximetry 91 Oxygen Delivery Oxygen Flow Rate 08/30/22 20:00 08/30/22 22:00 08/30/22 22:00 Temperature 98 F Pulse Rate 122 H 118 H 118 H Respiratory Rate 28 H 22 H Blood Pressure 110/68 112/73 Pulse Oximetry 91 97 Oxygen Delivery Oxygen Flow Rate 08/31/22 00:00 08/31/22 00:00 08/31/22 00:00 Temperature 97.9 F Pulse Rate 122 H 121 H Respiratory Rate 26 H Blood Pressure 126/75 Pulse Oximetry 91 97 Oxygen Delivery Nasal Cannula Oxygen Flow Rate 1 08/31/22 02:00 08/31/22 02:00 08/31/22 04:00 Temperature Pulse Rate 110 H 110 H Respiratory Rate 21 H Blood Pressure 95/52 L Pulse Oximetry 99 96 Oxygen Delivery Nasal Cannula Oxygen Flow Rate 1 08/31/22 04:00 08/31/22 06:00 08/31/22 04:00 Temperature 98 F Pulse Rate 121 H 114 H 121 H Respiratory Rate 22 H Blood Pressure 112/77 Pulse Oximetry 98 Oxygen Delivery Oxygen Flow Rate 08/31/22 06:00 08/31/22 03:01 08/31/22 03:11 Temperature Pulse Rate 114 H 115 H 120 H Respiratory Rate 30 H 2
[2022-08-31] MEDS: DOXYCYCLINE 100 MG/NS 100 ML 100 MG/100 ML BAG IVPB ×2 (12:03→23:52)
--- NOTE | 2022-08-31 13:00 | PC.NURSE ---
Dr. Samuels at bedside for paracentesis. 2.4L removed. Patient resting quietly, so s/s of distress. Vital signs unchanged.
--- NOTE | 2022-08-31 13:12 | PCPTNOTE ---
Per RN patient having procedure done and is unable to be seen for PT at this time.
[2022-08-31] MEDS: CEFEPIME 2 GM/NS 50 ML 2 GM/50 ML BAG IVPB ×2 (13:27→21:20)
[2022-08-31 14:30] LABS: Appearance Peritoneal Fluid Hazy (Clear); Source Peritoneal Fluid Peritoneal Fluid
[2022-08-31 14:31] LABS: Color Peritoneal Fluid Other (Colorless)
[2022-08-31 14:33] LABS: Nucleated Cells Peritoneal Flu 1665 /uL (0-500)
[2022-08-31 14:39] LABS: RBC Peritoneal Fluid 8000 /uL (0-100000)
--- NOTE | 2022-08-31 15:27 | PM.IMPN ---
Progress Note: A&P Assessment and Plan (1) Anemia: Qualifiers: Anemia type: unspecified type Qualified Code(s): D64.9 - Anemia, unspecified Code(s): D64.9 - Anemia, unspecified Status: Inactive Assessment and Plan: Patientdropped his hemoglobin to 7.1, Patient received blood transfusion, Order CT abdomen pelvis to rule out intra-abdominal hematoma CT abdomen pelvis revealed no hematoma, but it showed? peritoneal carcinomatosis and liver masses, consistent with metastatic disease, possible? stomach is the primary.? Large volume ascites, paracentesis is recommended for diagnosis, small pleural effusion Consult heme oncologist for evaluation consult EGD this week (2) Shock: Code(s): R57.9 - Shock, unspecified Status: Acute Assessment and Plan: Patient transferred to ICU secondary to hypotension. He has a mixed picture and I suspect his hypotension is secondary to dehydration from his diarrhea, multiple cardiac medication that he is on, cardiogenic from cardiomyopathy and possible sepsis He states he has not had any bowel movement last 2 days and his diarrhea has resolved and he is completely asymptomatic at this time His chest x-ray suggest possible pneumonia but he does not have any respiratory symptoms. His WBC was elevated but he is afebrile 08/26: Blood cultures -preliminary report is negative x2 -Urine Legionella pending -urine pneumococcal antigen not detected -mycoplasma IgG is pending -UA did not show any infection - procalcitonin was mildly elevated at 0.7 -continue Rocephin and doxycycline (08/27), Vancomycin (08/30) - 08/29 - lactic acid was 0.8 -patient has received adequate IV fluids -OFF Levophed his 9:30 a.m. on 08/28/2022 -Continue to hold cardiac medications including diuretics beta-damian and Entresto due to borderline blood pressures Currently patient is hemodynamically stable, will move patient to IMCU for close monitoring, (3) Sepsis: Qualifiers: Sepsis type: sepsis due to unspecified organism Code(s): A41.9 - Sepsis, unspecified organism Status: Acute Assessment and Plan: See above (4) Community acquired pneumonia: Code(s): J18.9 - Pneumonia, unspecified organism Status: Acute Assessment and Plan: Chest x-ray: Airspace opacities in the lower lung zones with mild worsening on the right, consistent with atelectasis versus pneumonia. Cardiomegaly.Continue antibiotics as above (5) FRANCISCO (acute kidney injury): Code(s): N17.9 - Acute kidney failure, unspecified Status: Acute Assessment and Plan: Presented with acute kidney injury which likely secondary to dehydration hypovolemia His creatinine has normalized Monitor urine output electrolytes and creatinine (6) NSTEMI (non-ST elevated myocardial infarction): Code(s): I21.4 - Non-ST elevation (NSTEMI) myocardial infarction Status: Acute Assessment and Plan: Patient has history of coronary disease status post CABG and PCI likely type 2 non STEMI secondary to hypotension and dehydration. Patient denies any chest pain or anginal equivalents Troponin elevated Cardiology consulted HOLD aspirin, heparin infusion Plavix due to anemia -continue statin. -Hold beta-damian due to hypotension 08/27/2022 echocardiogram: Showed EF of 35-40%, LV chamber is severely enlarged, mild concentric LV thickness, left ventricular septal wall motion is abnormal with septal motion related to bundle branch block, grade 1 diastolic dysfunction, mild aortic valve sclerosis, mild mitral valve regurgitation, mild tricuspid valve regurgitation. No pulmonary hypertension Consult cardiology for evaluation treatment (7) Ischemic cardiomyopathy: Code(s): I25.5 - Ischemic cardiomyopathy Status: Acute Assessment and Plan: History of ischemic cardiomyopathy with last recorded EF 16% on echocardiogram done in 2020 Repeat echo this admission as
[2022-08-31 17:05] LABS: Eosinophils Peritoneal Fluid 1 %; Lymphocytes Peritoneal Fluid 15 %; Mesothelial Cells Peritoneal Fluid 1 %; Monocytes Peritoneal Fluid 24 %; Neutrophils Peritoneal Fluid 59 % (0-25)
--- NOTE | 2022-08-31 19:26 | PDONCCN ---
HPI - Date of Consult Date/Time: 08/31/22 19:26 Requesting Physician: Elvia Bojorquez MD Primary Care Provider: Kvng Mcclendon MD - Consult Narrative Reason for consult: Metastatic disease Narrative: Mahendra Fletcher is a 81 year old male with history of coronary artery disease status post coronary artery bypass grafting and without any history of underlying malignancy. He has other multiple comorbidities including peripheral vascular disease, stroke, gout, COPD, diabetes, hypertension and hyperlipidemia. He is also status post coronary artery bypass grafting done in April 2020. He came into the hospital with complain of diarrhea for 3 days duration without nausea vomiting and abdominal pain. He lost more than 20 lb weight but has bad dentition as well. He was admitted to the ICU with hypotensive shock. Blood cultures were ordered. He was diagnosed with possible pneumonia and antibiotics were started. CT abdomen and pelvis showed peritoneal carcinomatosis and liver masses along with large volume of ascites and small pleural effusion. He had paracentesis done with 2600 mL of fluid removed. Other labs showed thrombocytosis and leukocytosis with anemia. Liver enzymes and total bilirubin was normal. Review of Systems - Review of Systems All systems reviewed & are unremarkable except as noted in HPI and [facility] Medical History: Medical History (Last Reviewed 08/27/22 @ 10:01 by Lenny Jones MD) Bilateral carotid artery disease With complete occlusion of the left carotid, right carotid endarterectomy 2004 CAD (coronary artery disease) COPD (chronic obstructive pulmonary disease) Diabetes mellitus Essential (primary) hypertension Gout, unspecified Hypertension with heart disease Ischemic cardiomyopathy EF of 15-20% on limited echo 08/10/2020 which had worsened from echocardiogram in April with EF 30-35%. He has life vest in place Kidney stones Mixed hyperlipidemia Spondylosis of lumbar region without myelopathy or radiculopathy Tobacco dependence He chewed tobacco from time he was a teenager up until use 58 years old at that time he began smoking and smoked 2.5 packs per day quit smoking April 2020 Surgical History: Surgical History (Last Reviewed 08/27/22 @ 10:01 by Lenny Jones MD) History of cardiac catheterization Onset Date: 05/03/20 Left main: large caliber vessel but seems to be very heavily calcified with 90% stenosis involving most of the body of the left main Lad medium size artery showed proximal calcified 90%, and mid 75%, 1st diagonal branch with proximal 75% disease Left circumflex artery, mid circ 75% disease RCA: Dominant vessel, showed mid RCA significant irregularity with a 40-50% disease. History of right-sided carotid endarterectomy Onset Date: ~2004 Hx of cholecystectomy S/P CABG (coronary artery bypass graft) Onset Date: 05/06/20 3 vessel CABG performed at [facility] by Dr. Armenadriz Family History: Family History (Last Reviewed 08/27/22 @ 10:01 by Lenny Jones MD) Father Lung cancer - Social History Social History: Social History (Last Reviewed 08/27/22 @ 10:01 by Lenny Jones MD) Gender Identity: Gender identity (if verbalized by the patient): Male Sexual Orientation: Sexual Orientation (if Verbalized by the Patient): Straight or Heterosexual Alcohol Use: Alcohol intake: never Substance Use: Substance use: never Substance use type: does not use Others: Spiritual care concerns: No Living Arrangements: Living arrangements: alone Oppucation/Education: Occupation/Education: retired Smoking Status: Smoking status: Current every day smoker Tobacco type: cigarettes Second hand tobacco smoke exposure: Yes Smoking end date: 05/03/20 Smoking Pack-years: Smoking packs per day: 2 Smoking cigarettes per day: 40.0 Years smoked: 15 Smoking pack-years: 30.00 Social Determ
[2022-08-31] MEDS: MELATONIN 5 MG TABLET PO (21:18)
[2022-08-31] MEDS: HYDROcodone/acetaminophen (*CRX) 7.5-325 MG TABLET 1 TAB PO (21:18)
[2022-08-31 22:19] LABS: Carcinoembryonic Antigen 4.4 ng/mL (0.0-3.0)
[2022-09-01] VITALS (19 sets, daily range): BP systolic 92–107; BP diastolic 55–64; PULSE 110–117; RESP 17–25; TEMP 35.8–36.7; O2SAT 96–100
[2022-09-01] MEDS: IPRATROPIUM BR 0.02% INH SOLN 0.5 MG/2.5 ML VIAL INHALATION ×4 (02:05→20:05)
[2022-09-01] MEDS: LEVALBUTEROL NEB 1.25 MG/3 ML 0.63 MG INHALATION ×4 (02:05→20:05)
[2022-09-01 02:34] LABS: Vancomycin Trough 10.4 ug/mL (10.0-20.0)
[2022-09-01 03:25] LABS: Legionella pneumophila Ag Ur Not Detected (Not Detected)
[2022-09-01] MEDS: VANCOMYCIN 1,250 MG/NS 250 ML 1,250 MG/250 ML BAG 166.67 MG IVPB ×2 (04:33→16:45)
[2022-09-01 04:45] LABS: Basophils Percent Auto 0.1 % (0.2-1.2); Eosinophils Absolute Auto 0.3 K/mm3 (0-0.3); Eosinophils Percent Auto 1.5 % (0-4.4); Hematocrit 23.3 % (42.0-52.0); Hemoglobin 7.4 g/dL (14.0-18.0); Immature Granulocyte Absolute 0.24 K/mm3 (0.00-0.031); Immature Granulocyte Percent A 1.2 % (0-0.5); Lymphocytes Absolute Auto 0.35 K/mm3 (0.9-3.2); Lymphocytes Percent Auto 1.8 % (18.3-44.2); Mean Corpuscular HGB Conc 31.8 g/dl (32-36); Mean Corpuscular Hemoglobin 29.7 pg (26-34); Mean Corpuscular Volume 93.6 fl (80-100); Mean Platelet Volume 9.6 fl (7.4-10.4); Monocytes Absolute Auto 1.3 K/mm3 (0.1-0.6); Monocytes Percent Auto 6.8 % (2.6-8.5); Neutrophils Absolute Auto 17.4 K/mm3 (1.3-6.7); Neutrophils Percent Auto 88.6 % (45.5-73.1); Platelet Count Result 354 k/mm3 (150-375); Red Blood Count 2.49 M/mm3 (4.6-6.20); Red Cell Distribution Width 14.5 % (11.5-14.5); White Blood Count 19.7 K/mm3 (4.5-10.0)
[2022-09-01 04:56] LABS: Alanine Aminotransferase 15 U/L (6-50); Albumin Level 3.2 g/dL (3.5-5.1); Alkaline Phosphatase 54 U/L (38-126); Anion Gap 2 mmol/L (8-16); Aspartate Amino Transferase 25 U/L (17-59); Bilirubin,Total 0.6 mg/dL (0.2-1.3); Blood Urea Nitrogen 21 mg/dL (9-20); Calcium 8.5 mg/dL (8.4-10.2); Carbon Dioxide 28 mmol/L (22-30); Chloride 95 mmol/L (98-107); Estimated CRCL calculation 100 ml/min; Estimated Glomerular Filt Rate > 60; Glucose 144 mg/dL (65-110); Phosphorus 2.4 mg/dL (2.5-4.5); Potassium 3.6 mmol/L (3.4-5.0); Sodium 125 mmol/L (137-145)
[2022-09-01] MEDS: CEFEPIME 2 GM/NS 50 ML 2 GM/50 ML BAG IVPB ×3 (05:33→19:57)
[2022-09-01] MEDS: CENTRAL LINE FLUSH 10 ML IV PUSH ×3 (05:34→19:57)
[2022-09-01] MEDS: IRON SUCROSE COMPLEX 500 MG in SODIUM CHLORIDE 0.9% IV 250 ML 78.57 MG IVPB (08:32)
[2022-09-01] MEDS: AMIODARONE HCL 200 MG TABLET PO (08:32)
[2022-09-01] MEDS: allopurinoL 300 MG TABLET PO (08:32)
[2022-09-01] MEDS: PANTOPRAZOLE SODIUM IV 40 MG VIAL IV PUSH ×2 (08:32→19:57)
[2022-09-01] MEDS: HYDROcodone/acetaminophen (*CRX) 7.5-325 MG TABLET 1 TAB PO ×2 (09:22→20:44)
--- NOTE | 2022-09-01 10:25 | PCOTNOTE ---
Attempted to see Patient at this time, Patient refused to participate at this time.
[2022-09-01] MEDS: DOXYCYCLINE 100 MG/NS 100 ML 100 MG/100 ML BAG IVPB ×2 (11:08→23:53)
--- NOTE | 2022-09-01 13:06 | WPDGIPROGNO ---
Progress Note: A&P Assessment and Plan (1) Abnormal CT scan: Code(s): R93.89 - Abnormal findings on diagnostic imaging of other specified body structures Status: Acute Assessment and Plan: CT scan suggestive of a gastric mass with ascites carcinomatosis and liver metastases. Plan for EGD to assess more thoroughly. Will reassess in morning. Plan EGD either Wednesday or . Paracentesis performed. Cytology pending. (2) Gastric mass: Code(s): K31.89 - Other diseases of stomach and duodenum Status: Acute (3) Metastasis to liver: Code(s): C78.7 - Secondary malignant neoplasm of liver and intrahepatic bile duct Status: Acute (4) Ascites: Code(s): R18.8 - Other ascites Status: Acute Assessment and Plan: Status post paracentesis. Cytology pending. (5) Community acquired pneumonia: Code(s): J18.9 - Pneumonia, unspecified organism Status: Acute Assessment and Plan: Pneumonia clinically. On antibiotics. Less short of breath today. remains on supplemental oxygen. (6) Ischemic cardiomyopathy: Code(s): I25.5 - Ischemic cardiomyopathy Status: Acute Subjective Date/time seen: 09/01/22 13:06 Interval history: Patient alert more comfortable today. Had paracentesis yesterday. Blood pressure more stable. Patient has been downgraded to IMU status. Review of Systems Review of Systems: Review of systems noncontributory. Exam Narrative: Physical exam reveals patient be alert. Vital signs stable. He is anicteric. Lungs are clear. Heart without murmur. Abdomen softer. Less distended no tenderness no organomegaly appreciated. Objective Data Vital Signs Vital Signs: Vital Signs - 24 hr 08/31/22 14:00 08/31/22 14:00 08/31/22 13:25 Temperature Pulse Rate 115 H 115 H 109 H Respiratory Rate 24 H 19 Blood Pressure 114/65 Pulse Oximetry 100 Oxygen Delivery Oxygen Flow Rate Fraction of Inspired Oxygen 08/31/22 13:35 08/31/22 13:15 08/31/22 16:00 Temperature 97.7 F Pulse Rate 108 H 110 H 115 H Respiratory Rate 20 23 H 24 H Blood Pressure 93/56 L 107/60 Pulse Oximetry 97 95 Oxygen Delivery Oxygen Flow Rate Fraction of Inspired Oxygen 08/31/22 16:00 08/31/22 16:00 08/31/22 18:00 Temperature Pulse Rate 115 H 117 H Respiratory Rate Blood Pressure Pulse Oximetry 94 Oxygen Delivery Nasal Cannula Oxygen Flow Rate 1 Fraction of Inspired Oxygen 08/31/22 20:01 08/31/22 20:02 08/31/22 20:10 Temperature Pulse Rate 113 H 112 H 111 H Respiratory Rate 23 H 25 H Blood Pressure Pulse Oximetry 100 Oxygen Delivery Nasal Cannula Oxygen Flow Rate 1 Fraction of Inspired Oxygen 08/31/22 20:00 08/31/22 20:00 08/31/22 20:00 Temperature 98 F Pulse Rate 122 H 22 L Respiratory Rate 25 H Blood Pressure 98/55 L Pulse Oximetry 100 Oxygen Delivery Room Air Oxygen Flow Rate Fraction of Inspired Oxygen 08/31/22 22:00 09/01/22 00:00 09/01/22 00:00 Temperature Pulse Rate 120 H 117 H Respiratory Rate Blood Pressure Pulse Oximetry Oxygen Delivery Room Air Oxygen Flow Rate Fraction of Inspired Oxygen 09/01/22 00:00 09/01/22 02:05 09/01/22 02:15 Temperature 98 F Pulse Rate 117 H 117 H 115 H Respiratory Rate 24 H 24 H 19 Blood Pressure 103/64 Pulse Oximetry 99 Oxygen Delivery Oxygen Flow Rate Fraction of Inspired Oxygen 09/01/22 02:00 09/01/22 04:00 09/01/22 04:00 Temperature 97.8 F Pulse Rate 113 H 115 H 115 H Respiratory Rate 22 H Blood Pressure 100/57 L Pulse Oximetry 100 Oxygen Delivery Oxygen Flow Rate Fraction of Inspired Oxygen 09/01/22 04:00 09/01/22 06:00 09/01/22 07:20 Temperature Pulse Rate 111 H 111 H Respiratory Rate 18 Blood Pressure Pulse Oximetry 100 Oxygen Delivery Room Air Room Air Oxygen Flow Rate Fra
--- NOTE | 2022-09-01 14:01 | PCOTNOTE ---
Attempted again this P.M. for OT treatment session. Patient verbalized, he worked with PT and just got back into bed. Patient is not interested in services and needs rest . Therapist spoke with RN, he verbalized, Patient not interested in performing any activities he also is not eating.
--- NOTE | 2022-09-01 15:40 | P.PNIM_ITS ---
Progress Note: A&P Assessment and Plan (1) Anemia: Qualifiers: Anemia type: unspecified type Qualified Code(s): D64.9 - Anemia, unspecified Code(s): D64.9 - Anemia, unspecified Status: Inactive Assessment and Plan: Patientdropped his hemoglobin to 7.1, Patient received blood transfusion, Order CT abdomen pelvis to rule out intra-abdominal hematoma CT abdomen pelvis revealed no hematoma, but it showed? peritoneal carcinomatosis and liver masses, consistent with metastatic disease, possible? stomach is the primary.? Large volume ascites, paracentesis is recommended for diagnosis, small pleural effusion Consult heme oncologist for evaluation GI rounding pt awaiting scope (2) Shock: Code(s): R57.9 - Shock, unspecified Status: Acute Assessment and Plan: Patient transferred to ICU secondary to hypotension. He has a mixed picture and I suspect his hypotension is secondary to dehydration from his diarrhea, multiple cardiac medication that he is on, cardiogenic from cardiomyopathy and possible sepsis He states he has not had any bowel movement last 2 days and his diarrhea has resolved and he is completely asymptomatic at this time His chest x-ray suggest possible pneumonia but he does not have any respiratory symptoms. His WBC was elevated but he is afebrile 08/26: Blood cultures -preliminary report is negative x2 -Urine Legionella pending -urine pneumococcal antigen not detected -mycoplasma IgG is pending -UA did not show any infection - procalcitonin was mildly elevated at 0.7 -continue Rocephin and doxycycline (08/27), Vancomycin (08/30) - 08/29 - lactic acid was 0.8 -patient has received adequate IV fluids -OFF Levophed his 9:30 a.m. on 08/28/2022 - BP on softer side continue to monitor -Currently patient is IMU status (3) Sepsis: Qualifiers: Sepsis type: sepsis due to unspecified organism Code(s): A41.9 - Sepsis, unspecified organism Status: Acute Assessment and Plan: See above (4) Community acquired pneumonia: Code(s): J18.9 - Pneumonia, unspecified organism Status: Acute Assessment and Plan: Chest x-ray: Airspace opacities in the lower lung zones with mild worsening on the right, consistent with atelectasis versus pneumonia. Cardiomegaly.Continue antibiotics as above (5) FRANCISCO (acute kidney injury): Code(s): N17.9 - Acute kidney failure, unspecified Status: Acute Assessment and Plan: Presented with acute kidney injury which likely secondary to dehydration hypovolemia His creatinine has normalized Monitor urine output electrolytes and creatinine (6) NSTEMI (non-ST elevated myocardial infarction): Code(s): I21.4 - Non-ST elevation (NSTEMI) myocardial infarction Status: Acute Assessment and Plan: Patient has history of coronary disease status post CABG and PCI likely type 2 non STEMI secondary to hypotension and dehydration. Patient denies any chest pain or anginal equivalents Troponin elevated Cardiology consulted HOLD aspirin, heparin infusion Plavix due to anemia -continue statin. -Hold beta-damian due to hypotension 08/27/2022 echocardiogram: Showed EF of 35-40%, LV chamber is severely enlarged, mild concentric LV thickness, left ventricular septal wall motion is abnormal with septal motion related to bundle branch block, grade 1 diastolic dysfunction, mild aortic valve sclerosis, mild mitral valve regurgitation, mild tricuspid valve regurgitation. No pulmonary hypertension (7) Ischemic cardiomyopathy: Code(s): I25.5 - Ischemic cardi
[2022-09-01] MEDS: MELATONIN 5 MG TABLET PO (20:44)
[2022-09-02] VITALS (26 sets, daily range): BP systolic 90–108; BP diastolic 51–68; PULSE 102–114; RESP 15–28; TEMP 36.1–36.6; O2SAT 92–100
[2022-09-02] MEDS: LEVALBUTEROL NEB 1.25 MG/3 ML 0.63 MG INHALATION ×4 (02:10→19:56)
[2022-09-02] MEDS: IPRATROPIUM BR 0.02% INH SOLN 0.5 MG/2.5 ML VIAL INHALATION ×4 (02:10→19:56)
[2022-09-02] MEDS: VANCOMYCIN 1,250 MG/NS 250 ML 1,250 MG/250 ML BAG 166.67 MG IVPB ×2 (04:01→17:01)
[2022-09-02 04:29] LABS: Estimated CRCL calculation 83 ml/min; Estimated Glomerular Filt Rate > 60
[2022-09-02] MEDS: CEFEPIME 2 GM/NS 50 ML 2 GM/50 ML BAG IVPB ×3 (05:37→21:07)
[2022-09-02] MEDS: CENTRAL LINE FLUSH 10 ML IV PUSH ×3 (05:37→21:06)
[2022-09-02] MEDS: IRON SUCROSE COMPLEX 500 MG in SODIUM CHLORIDE 0.9% IV 250 ML 78.57 MG IVPB (09:32)
[2022-09-02] MEDS: PANTOPRAZOLE SODIUM IV 40 MG VIAL IV PUSH ×2 (09:32→20:38)
--- NOTE | 2022-09-02 11:10 | PCOTNOTE ---
Attempted to see Patient at this time. Patient is being transferred to a stretcher, going down for an EGD.
--- NOTE | 2022-09-02 11:31 | WPDANESEPPF ---
Anes - Initial Pre Proc Eval Procedure: Operation Date: 09/02/22 13:00 Proposed Procedures p Esophagogastroduodenoscopy - Garret Valles MD Date/Time: 09/02/22 11:31 Surgeon: Elvia Bojorquez MD Pre Op Diagnosis: Sepsis Patient Data Age: 81 Gender: M Height: 1.78 m Weight: 73.3 kg Last Vital Signs Temp 97.9 F 09/02/22 08:00 Pulse 109 H 09/02/22 10:00 Resp 20 09/02/22 08:08 BP 104/58 L 09/02/22 08:00 Pulse Ox 98 09/02/22 08:59 O2 Del Method Room Air 09/02/22 08:59 O2 Flow Rate 2 09/02/22 07:48 FiO2 21 09/02/22 08:59 Allergies Allergy/AdvReac Type Severity Reaction Status Date / Time Sulfa (Sulfonamide Allergy Unknown Rash Verified 08/26/22 17:16 Antibiotics) Home Medications Medication Instructions Recorded Confirmed Type aspirin 325 mg tablet,delayed 325 mg PO QPM 03/07/19 08/26/22 History release (Aspir-Spring) amiodarone 200 mg tablet 200 mg PO DAILY 05/22/20 08/26/22 History vardenafil 20 mg tablet 20 mg PO DAILY #7 tabs 04/15/21 08/26/22 Rx allopurinol 300 mg tablet 300 mg PO DAILY #90 tabs 01/09/22 08/26/22 Rx hydrocodone 7.5 mg-acetaminophen 1 tablet PO Q8H PRN pain #30 tabs 08/04/22 08/26/22 Rx 325 mg tablet clopidogrel 75 mg tablet 75 mg PO DAILY 08/26/22 08/26/22 History furosemide 20 mg tablet 20 mg PO DAILY 08/26/22 08/26/22 History metoprolol succinate 25 mg 75 mg PO DAILY 08/26/22 08/26/22 History tablet,extended release 24 hr rosuvastatin 20 mg tablet 20 mg PO EVERY OTHER DAY 08/26/22 08/26/22 History sacubitril 49 mg-valsartan 51 mg 1 tablet PO BID 08/26/22 08/26/22 History tablet (Entresto) spironolactone 25 mg tablet 25 mg PO DAILY 08/26/22 08/26/22 History Laboratory Tests 09/02/22 09/02/22 04:12 08:23 Creatinine 0.60 L mg/dL (0.7-1.3) Estim Creat Clear Calc 83 ml/min Estimated GFR > 60 (59 - ) Vancomycin Trough Cancelled Patient hx anesthesia problems: none Family hx anesthesia problems: none Results Review: All pre-operative results and documents have been reviewed as part of the pre-operative evaluation. [facility] Past Medical History Medical History Bilateral carotid artery disease With complete occlusion of the left carotid, right carotid endarterectomy 2004 CAD (coronary artery disease) COPD (chronic obstructive pulmonary disease) Diabetes mellitus Essential (primary) hypertension Gout, unspecified Hypertension with heart disease Ischemic cardiomyopathy EF of 15-20% on limited echo 08/10/2020 which had worsened from echocardiogram in April with EF 30-35%. He has life vest in place Kidney stones Mixed hyperlipidemia Spondylosis of lumbar region without myelopathy or radiculopathy Tobacco dependence He chewed tobacco from time he was a teenager up until use 58 years old at that time he began smoking and smoked 2.5 packs per day quit smoking April 2020 Surgical History Surgical History History of cardiac catheterization (05/03/20) Left main: large caliber vessel but seems to be very heavily calcified with 90% stenosis involving most of the body of the left main Lad medium size artery showed proximal calcified 90%, and mid 75%, 1st diagonal branch with proximal 75% disease Left circumflex artery, mid circ 75% disease RCA: Dominant vessel, showed mid RCA significant irregularity with a 40-50% disease. 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 Armendariz Family History Family History Father Lung cancer Social History Social History Social History: The patient is and lives alone. He has 1 daughter. He is retired from [employer]
[2022-09-02] MEDS: LACTATED RINGERS 1,000 ML 150 ML IV CONT (11:43)
[2022-09-02] MEDS: BENZOCAINE (*SP) 60 ML SPRAY CAN (HURRICAINE) 1 SPRAY MUCOUS MEM (12:05)
--- NOTE | 2022-09-02 13:01 | PCPTNOTE ---
The patient treatment was not able to be completed due to patient out of room for testing. Will plan to continue treatment per plan of care.
[2022-09-02] MEDS: AMIODARONE HCL 200 MG TABLET PO (13:49)
[2022-09-02] MEDS: ROSUVASTATIN 10 MG TABLET 20 MG PO (13:50)
[2022-09-02] MEDS: allopurinoL 300 MG TABLET PO (13:50)
--- NOTE | 2022-09-02 14:39 | PM.IMPN ---
Progress Note: A&P Assessment and Plan (1) Anemia: Qualifiers: Anemia type: unspecified type Qualified Code(s): D64.9 - Anemia, unspecified Code(s): D64.9 - Anemia, unspecified Status: Inactive Assessment and Plan: Patientdropped his hemoglobin to 7.1, Patient received blood transfusion, Order CT abdomen pelvis to rule out intra-abdominal hematoma CT abdomen pelvis revealed no hematoma, but it showed? peritoneal carcinomatosis and liver masses, consistent with metastatic disease, possible? stomach is the primary.? Large volume ascites, paracentesis is recommended for diagnosis, small pleural effusion Consult heme oncologist for evaluation GI rounding pt awaiting scope pt receiving venofer infusion (2) Shock: Code(s): R57.9 - Shock, unspecified Status: Acute Assessment and Plan: Patient transferred to ICU secondary to hypotension. He has a mixed picture and I suspect his hypotension is secondary to dehydration from his diarrhea, multiple cardiac medication that he is on, cardiogenic from cardiomyopathy and possible sepsis He states he has not had any bowel movement last 2 days and his diarrhea has resolved and he is completely asymptomatic at this time His chest x-ray suggest possible pneumonia but he does not have any respiratory symptoms. His WBC was elevated but he is afebrile 08/26: Blood cultures -preliminary report is negative x2 -Urine Legionella pending -urine pneumococcal antigen not detected -mycoplasma IgG is pending -UA did not show any infection - procalcitonin was mildly elevated at 0.7 -continue Rocephin and doxycycline (08/27), Vancomycin (08/30) - 08/29 - lactic acid was 0.8 -patient has received adequate IV fluids -OFF Levophed his 9:30 a.m. on 08/28/2022 - BP on softer side continue to monitor -Currently patient is IMU status (3) Sepsis: Qualifiers: Sepsis type: sepsis due to unspecified organism Code(s): A41.9 - Sepsis, unspecified organism Status: Acute Assessment and Plan: See above (4) Community acquired pneumonia: Code(s): J18.9 - Pneumonia, unspecified organism Status: Acute Assessment and Plan: Chest x-ray: Airspace opacities in the lower lung zones with mild worsening on the right, consistent with atelectasis versus pneumonia. Cardiomegaly.Continue antibiotics as above (5) FRANCISCO (acute kidney injury): Code(s): N17.9 - Acute kidney failure, unspecified Status: Acute Assessment and Plan: Presented with acute kidney injury which likely secondary to dehydration hypovolemia His creatinine has normalized Monitor urine output electrolytes and creatinine (6) NSTEMI (non-ST elevated myocardial infarction): Code(s): I21.4 - Non-ST elevation (NSTEMI) myocardial infarction Status: Acute Assessment and Plan: Patient has history of coronary disease status post CABG and PCI likely type 2 non STEMI secondary to hypotension and dehydration. Patient denies any chest pain or anginal equivalents Troponin elevated Cardiology consulted HOLD aspirin, heparin infusion Plavix due to anemia -continue statin. -Hold beta-damian due to hypotension 08/27/2022 echocardiogram: Showed EF of 35-40%, LV chamber is severely enlarged, mild concentric LV thickness, left ventricular septal wall motion is abnormal with septal motion related to bundle branch block, grade 1 diastolic dysfunction, mild aortic valve sclerosis, mild mitral valve regurgitation, mild tricuspid valve regurgitation. No pulmonary hypertension (7) Ischemic cardiomyopathy: Code(s): I25.5 - Ischemic cardiomyopathy Status: Acute Assessment and Plan: History of ischemic cardiomyopathy with last recorded EF 16% on echocardiogram done in 2020 (8) CAD (coronary artery disease): Code(s): I25.10 - Atherosclerotic heart disease of [place] coronary artery without angina pectoris Status: Acute
[2022-09-02 15:57] LABS: Vancomycin Trough 19.9 ug/mL (10.0-20.0)
[2022-09-02] MEDS: HYDROcodone/acetaminophen (*CRX) 7.5-325 MG TABLET 1 TAB PO (20:37)
[2022-09-03] VITALS (14 sets, daily range): BP systolic 98–106; BP diastolic 55–74; PULSE 102–112; RESP 20–25; TEMP 36.6; O2SAT 96–99
[2022-09-03] MEDS: IPRATROPIUM BR 0.02% INH SOLN 0.5 MG/2.5 ML VIAL INHALATION ×3 (01:44→14:12)
[2022-09-03] MEDS: LEVALBUTEROL NEB 1.25 MG/3 ML 0.63 MG INHALATION ×3 (01:44→14:12)
[2022-09-03] MEDS: VANCOMYCIN 1,250 MG/NS 250 ML 1,250 MG/250 ML BAG 166.67 MG IVPB (04:47)
[2022-09-03 04:55] LABS: Hematocrit 25.7 % (42.0-52.0); Hemoglobin 8.1 g/dL (14.0-18.0); Mean Corpuscular HGB Conc 31.5 g/dl (32-36); Mean Corpuscular Hemoglobin 29.8 pg (26-34); Mean Corpuscular Volume 94.5 fl (80-100); Mean Platelet Volume 9.8 fl (7.4-10.4); Platelet Count Result 350 k/mm3 (150-375); Red Blood Count 2.72 M/mm3 (4.6-6.20); Red Cell Distribution Width 15.2 % (11.5-14.5); White Blood Count 23.2 K/mm3 (4.5-10.0)
[2022-09-03 05:08] LABS: Anion Gap 4 mmol/L (8-16); Blood Urea Nitrogen 21 mg/dL (9-20); Calcium 8.4 mg/dL (8.4-10.2); Carbon Dioxide 28 mmol/L (22-30); Chloride 100 mmol/L (98-107); Estimated CRCL calculation 85 ml/min; Estimated Glomerular Filt Rate > 60; Glucose 136 mg/dL (65-110); Potassium 3.3 mmol/L (3.4-5.0); Sodium 132 mmol/L (137-145)
[2022-09-03] MEDS: CEFEPIME 2 GM/NS 50 ML 2 GM/50 ML BAG IVPB (05:47)
[2022-09-03] MEDS: CENTRAL LINE FLUSH 10 ML IV PUSH (05:48)
[2022-09-03 06:30] LABS: Glucose Peritoneal Fluid 156 mg/dL; LDH Peritoneal Fluid 258 U/L (<63); Total Protein Peritoneal Fluid 3.3 g/dL
[2022-09-03] MEDS: allopurinoL 300 MG TABLET PO (08:18)
[2022-09-03] MEDS: AMIODARONE HCL 200 MG TABLET PO (08:18)
[2022-09-03] MEDS: PANTOPRAZOLE SODIUM IV 40 MG VIAL IV PUSH (08:19)
--- NOTE | 2022-09-03 11:05 | PM.DS ---
DS: Admitting Diagnosis Discharge Date 09/03/2022 Admitting Diagnosis Ascites DS: Discharge Diagnosis Discharge Diagnosis (1) Gastric mass: Code(s): K31.89 - Other diseases of stomach and duodenum Status: Acute (2) Metastasis to liver: Code(s): C78.7 - Secondary malignant neoplasm of liver and intrahepatic bile duct Status: Acute (3) Ascites: Code(s): R18.8 - Other ascites Status: Acute (4) Anemia: Code(s): D64.9 - Anemia, unspecified Status: Acute DS: Summary Hospital Course Hospital Course: Patient admitted with shock and anemia. Patient transferred to ICU secondary to hypotension.? He was started on Levophed which was eventually stopped once his blood pressure improved. Order CT abdomen pelvis to rule out intra-abdominal hematoma CT abdomen pelvis revealed no hematoma, but it showed? peritoneal carcinomatosis and liver masses, consistent with metastatic disease, possible? stomach is the primary.? Large volume ascites, paracentesis is recommended for diagnosis, small pleural effusion. Patient underwent paracentesis. GI was consulted. Patient underwent EGD which showed a gastric ulcer likely does malignant. Biopsies were taken. His chest x-ray suggest possible pneumonia but he does not have any respiratory symptoms.? His WBC was elevated but he is afebrile Blood cultures -negative x2 08/27/2022 echocardiogram:? Showed EF of 35-40%, LV chamber is severely enlarged, mild concentric LV thickness, left ventricular septal wall motion is abnormal with septal motion related to bundle branch block, grade 1 diastolic dysfunction, mild aortic valve sclerosis, mild mitral valve regurgitation, mild tricuspid valve regurgitation.? No pulmonary hypertension Had an extensive discussion with the patient regarding his diagnosis and his prognosis. Discussed palliative chemo and radiation therapy with the patient given his metastatic gastric malignancy. Patient at this time declined to have any further treatment and decided that he wants to go home with hospice. Time Spent with Patient Time attestation: Total time spent providing and/or coordinating discharge services: DS: Data Data Completed and Pending Completed studies during hospitalization: Pending at discharge 08/30/22 07:42 Cytology [PTH] Routine Pending studies at discharge: Pending at discharge 09/02/22 12:18 Surgical [PTH] Routine Labs on day of discharge: Labs from last 24 hours 09/03/22 09/03/22 09/02/22 04:46 04:45 15:18 WBC 23.2 H RBC 2.72 L Hgb 8.1 L Hct 25.7 L MCV 94.5 MCH 29.8 MCHC 31.5 L RDW 15.2 H Plt Count 350 MPV 9.8 Sodium 132 L Potassium 3.3 L Chloride 100 Carbon Dioxide 28 Anion Gap 4 L BUN 21 H Creatinine 0.60 L Estim Creat Clear Calc 85 Estimated GFR > 60 Glucose 136 H Calcium 8.4 Peritoneal Tot Protein Peritoneal LDH Peritoneal Glucose Vancomycin Trough 19.9 08/31/22 13:08 WBC RBC Hgb Hct MCV MCH MCHC RDW Plt Count MPV Sodium Potassium Chloride Carbon Dioxide Anion Gap BUN Creatinine Estim Creat Clear Calc Estimated GFR Glucose Calcium Peritoneal Tot Protein 3.3 Peritoneal LDH 258 H Peritoneal Glucose 156 Vancomycin Trough Preliminary micro results at discharge 08/31/22 13:07 Anaerobic Culture - Preliminary Ascites Fluid Aerobic Culture - Preliminary Discharge Plan Discharge Consulting providers: Robert Rowe; Genesis Spence; Elier Hahn; Garret Valles Discharging Clinician: Phil Calderón Anticipated Discharge Date/Time: 09/03/22 11:03 Patient Disposition: Hospice - Home Activity: no preference Diet: regular Discharge Instructions: Per Care Coordination: [facility] will contact you prior to their first visit. [facility] will follow for PT/OT eval and treat. [facility] can be
--- NOTE | 2022-09-03 12:36 | WPDGIPROGNO ---
Progress Note: A&P Assessment and Plan (1) Gastric mass: Code(s): K31.89 - Other diseases of stomach and duodenum Status: Acute Assessment and Plan: Ulcerated gastric lesion most suspicious for carcinoma. Histology pending. This is consistent with imaging studies. Likely primary cancer with Mets to the liver and this carcinomatosis with ascites. Await histology. Patient has decided to go into hospice. Wishes discharge. If follow-up necessary oncology may be of some benefit. I will leave this to the discretion of the patient. (2) Metastasis to liver: Code(s): C78.7 - Secondary malignant neoplasm of liver and intrahepatic bile duct Status: Acute (3) Ascites: Code(s): R18.8 - Other ascites Status: Acute (4) Abnormal CT scan: Code(s): R93.89 - Abnormal findings on diagnostic imaging of other specified body structures Status: Acute (5) Community acquired pneumonia: Code(s): J18.9 - Pneumonia, unspecified organism Status: Acute Subjective Date/time seen: 09/03/22 12:36 Interval history: Patient alert comfortable present. Tolerating diet. Denies any significant abdominal pain. Histology from biopsy yesterday pending. Patient has decided to enter hospice. Review of Systems Review of Systems: Review of systems noncontributory. Exam Narrative: Physical exam reveals patient comfortable at rest lying in bed. Tolerating diet. HEENT exam reveals no icterus. Lungs are clear. Heart without murmur. Abdomen bowel sounds are present soft nontender with no organomegaly. Objective Data Vital Signs Vital Signs: Vital Signs - 24 hr 09/02/22 12:41 09/02/22 12:51 09/02/22 13:23 Temperature Pulse Rate 106 H 107 H 107 H Respiratory Rate 22 H 22 H 22 H Blood Pressure 98/56 L 90/52 L Pulse Oximetry 94 94 94 Oxygen Delivery Room Air Room Air Room Air Fraction of Inspired Oxygen 09/02/22 13:27 09/02/22 14:04 09/02/22 14:00 Temperature Pulse Rate 110 H 104 H 103 H Respiratory Rate 19 21 H Blood Pressure 108/68 Pulse Oximetry 92 Oxygen Delivery Fraction of Inspired Oxygen 09/02/22 14:20 09/02/22 16:00 09/02/22 16:00 Temperature 97.3 F L Pulse Rate 104 H 110 H 111 H Respiratory Rate 22 H 15 Blood Pressure 94/55 L Pulse Oximetry 97 Oxygen Delivery Fraction of Inspired Oxygen 09/02/22 16:00 09/02/22 18:00 09/02/22 19:58 Temperature Pulse Rate 111 H 112 H 105 H Respiratory Rate 15 20 Blood Pressure Pulse Oximetry 97 Oxygen Delivery Room Air Fraction of Inspired Oxygen 09/02/22 19:58 09/02/22 20:03 09/02/22 20:00 Temperature 97.9 F Pulse Rate 106 H 108 H Respiratory Rate 20 23 H Blood Pressure 101/58 L Pulse Oximetry 100 100 Oxygen Delivery Room Air Fraction of Inspired Oxygen 21 09/02/22 20:00 09/02/22 20:00 09/02/22 22:00 Temperature Pulse Rate 107 H 114 H Respiratory Rate Blood Pressure Pulse Oximetry 100 Oxygen Delivery Room Air Fraction of Inspired Oxygen 09/03/22 00:00 09/03/22 00:00 09/03/22 01:45 Temperature 97.9 F Pulse Rate 109 H 107 H Respiratory Rate 20 23 H Blood Pressure 100/59 L Pulse Oximetry 97 96 Oxygen Delivery Room Air Fraction of Inspired Oxygen 09/03/22 00:00 09/03/22 02:00 09/03/22 04:00 Temperature Pulse Rate 110 H 112 H Respiratory Rate Blood Pressure Pulse Oximetry 98 Oxygen Delivery Room Air Fraction of Inspired Oxygen 09/03/22 04:00 09/03/22 06:00 09/03/22 05:00 Temperature 97.8 F Pulse Rate 107 H 104 H 107 H Respiratory Rate 20 Blood Pressure 105/56 L Pulse Oximetry 97 Oxygen Delivery Fraction of Inspired Oxygen 09/03/22 08:00 09/03/22 08:03 09/03/22 08:16 Temperature Pulse Rate 104 H 104 H 108 H Respiratory Rate 20 21 H 25 H Blood Pressure Pulse Oximetry 99 Oxygen Delivery Room Air Fraction of Inspired Oxygen
--- NOTE | 2022-09-03 13:00 | PCOTNOTE ---
Addressed RN about seeing Patient at this time. Patient having a meeting with [facility] for home hospice. Per RN, Patient is going to be discharged this date with home hospice.
[2022-09-03 14:07] LABS: Amylase Peritoneal Fluid <10 U/L
[2022-09-04 06:23] LABS: CA 19-9 2997 U/mL (<34)
[2022-09-04 22:09] LABS: Albumin Peritoneal Fluid 2.4 g/dL
== END 2022-09-03 15:16 | disposition hospice, home (50) | DRG 374 ==
LOC: ANHIMU 08-27 02:30 → ANHICU 08-27 02:44
PROVIDERS: Emergency Medicine; Family Medicine; Internal Medicine; Internal Medicine Gastroenterology; Internal Medicine Hematology & Oncology; Admitting Provider Internal Medicine; PCP Family Medicine; Visit Provider Hospitalist
PROC: 0DJ08ZZ Inspection of Upper Intestinal Tract, Via Natural or Artificial Opening Endoscopic (ICD-10-PCS; CPT 43235; principal; 2022-09-02 13:00)
DX: C16.9 Malignant neoplasm of stomach, unspecified (principal); A41.9 Sepsis, unspecified organism; I21.A1 Myocardial infarction type 2; J18.9 Pneumonia, unspecified organism; N17.9 Acute kidney failure, unspecified; R57.9 Shock, unspecified; I50.22 Chronic systolic (congestive) heart failure; R18.8 Other ascites; C78.6 Secondary malignant neoplasm of retroperitoneum and peritoneum; C78.7 Secondary malignant neoplasm of liver and intrahepatic bile duct; D50.9 Iron deficiency anemia, unspecified; E86.0 Dehydration; E11.51 Type 2 diabetes mellitus with diabetic peripheral angiopathy without gangrene; E11.65 Type 2 diabetes mellitus with hyperglycemia; E78.2 Mixed hyperlipidemia; F17.210 Nicotine dependence, cigarettes, uncomplicated; I08.3 Combined rheumatic disorders of mitral, aortic and tricuspid valves; I11.0 Hypertensive heart disease with heart failure; I25.5 Ischemic cardiomyopathy; I25.10 Atherosclerotic heart disease of native coronary artery without angina pectoris; I48.0 Paroxysmal atrial fibrillation; J44.9 Chronic obstructive pulmonary disease, unspecified; K25.9 Gastric ulcer, unspecified as acute or chronic, without hemorrhage or perforation; K26.9 Duodenal ulcer, unspecified as acute or chronic, without hemorrhage or perforation; M10.9 Gout, unspecified; M47.816 Spondylosis without myelopathy or radiculopathy, lumbar region; R16.0 Hepatomegaly, not elsewhere classified; Z90.49 Acquired absence of other specified parts of digestive tract; Z79.82 Long term (current) use of aspirin; Z86.73 Personal history of transient ischemic attack (TIA), and cerebral infarction without residual deficits; Z79.02 Long term (current) use of antithrombotics/antiplatelets; Z95.1 Presence of aortocoronary bypass graft; Z95.5 Presence of coronary angioplasty implant and graft
CPT/HCPCS: 36415; 36430; 49083; 71045; 74176; 80048; 80053; 80202; 81001; 82040; 82042; 82150; 82378; 82565; 82607; 82728; 82746; 82803; 82945; 83540; 83550; 83605; 83615; 83735; 83880; 84100; 84145; 84157; 84484; 85025; 85027; 85610; 85730; 86301; 86738; 86850; 86900; 86901; 86923; 87070; 87075; 87081; 87205; 87449; 87899; 88108; 88305; 88342; 89051; 92610; 93005; 93306; 94640; 97110; 97161; 97165; 97530; 97535; A9270; C1751; C9113; J0282; J0692; J0696; J1644; J1650; J1756; J2543; J2704; J3370; J3480; J7030; J7050; J7120; P9016; P9045; P9047